=== PATIENT | female | born 1955 | race Caucasian/White ===

== ENCOUNTER → 2017-11-03 | Outpatient (CLI) | payer MEDICARE, OTHER ==
[2017-11-03 12:11] LABS: Anion Gap 8 mmol/L; Blood Urea Nitrogen 35 mg/dL (7-17); Calcium 9.5 mg/dL (8.4-10.2); Carbon Dioxide 31 mmol/L (22-30); Chloride 100 mmol/L (98-107); Glucose 89 mg/dL (74-99); Potassium 4.7 mmol/L (3.5-5.1); Sodium 139 mmol/L (137-145)
== END | disposition home or self-care (01) ==
LOC: LABWHC1 11:22
PROVIDERS: ATTEND Internal Medicine
DX: I50.32 Chronic diastolic (congestive) heart failure (principal)
CPT/HCPCS: 36415; 80048; 83880

== ENCOUNTER 2017-12-13 14:02 | Observation (INO) | payer MEDICARE, OTHER ==
[2017-12-13 15:13] LABS: Basophils % (A) 0 %; Eosinophils # (A) 0.1 k/uL (0-0.7); Eosinophils % (A) 1 %; HCT 36.2 % (34.0-46.0); HGB 11.3 gm/dL (11.4-16.0); Hypochromasia Slight; Lymphocytes # (A) 0.7 k/uL (1.0-4.8); Lymphocytes % (A) 11 %; MCH 27.2 pg (25.0-35.0); MCHC 31.3 g/dL (31.0-37.0); MCV 86.9 fL (80.0-100.0); Mean Platelet Volume 9.3; Monocytes # (A) 0.5 k/uL (0-1.0); Monocytes % (A) 7 %; Neutrophils # (A) 4.9 k/uL (1.3-7.7); Neutrophils % (A) 78 %; RBC 4.16 m/uL (3.80-5.40); RDW 15.1 % (11.5-15.5); WBC 6.3 k/uL (3.8-10.6)
[2017-12-13 15:19] LABS: ALT 28 U/L (9-52); AST 28 U/L (14-36); Albumin 4.1 g/dL (3.5-5.0); Alkaline Phosphatase 84 U/L (38-126); Anion Gap 10 mmol/L; Blood Urea Nitrogen 26 mg/dL (7-17); Calcium 9.3 mg/dL (8.4-10.2); Carbon Dioxide 36 mmol/L (22-30); Chloride 100 mmol/L (98-107); Glucose 97 mg/dL (74-99); INR 3.2 (<1.2); Partial Thromboplastin Time 29.9 sec (22.0-30.0); Prothrombin Time 28.3 sec (9.0-12.0); Sodium 146 mmol/L (137-145); Total Bilirubin 1.1 mg/dL (0.2-1.3); Total Protein 6.8 g/dL (6.3-8.2)
[2017-12-13 15:23] LABS: Platelet Count 98 k/uL (150-450)
[2017-12-13 15:27] LABS: Creatine Kinase 63 U/L (30-135)
[2017-12-13 15:40] LABS: Creatine Kinase MB 0.8 ng/mL (0.0-2.4); Troponin I <0.012 ng/mL (0.000-0.034)
--- NOTE | 2017-12-13 15:56 | ED ---
General Adult HPI - General Chief complaint: Shortness of Breath Stated complaint: Congestive Heart Failure Time Seen by Provider: 12/13/17 15:27 Source: patient, RN notes reviewed, old records reviewed Mode of arrival: wheelchair Limitations: no limitations - History of Present Illness Initial comments: 62-year-old female presenting for evaluation of worsening dyspnea. Patient states that over the past 2 days her breathing has significantly worsened. She does report bilateral lower extremity swelling, worse on the left. She also reports orthopnea. Denies any pain complaints. No chest pain, no abdominal pain. Patient has history of atrial fibrillation, Marfan's disease with previous ascending thoracic aneurysm repair and mechanical valve placement. She is currently on Coumadin. Patient denies cough, denies fever or chills. Denies URI symptoms. - Related Data Home Medications Medication Instructions Recorded Confirmed Metoprolol Succinate [Toprol XL] 100 mg PO DAILY 12/01/15 12/13/17 Levothyroxine Sodium [Synthroid] 150 mcg PO DAILY 12/02/15 12/13/17 Losartan Potassium 100 mg PO DAILY 12/02/15 12/13/17 Potassium Chloride [Klor-Con 20] 10 meq PO HS 12/02/15 12/13/17 Warfarin [Coumadin] 5 mg PO HS 12/02/15 12/13/17 Meloxicam [Mobic] 7.5 mg PO HS 10/27/17 12/13/17 Rosuvastatin [Crestor] 20 mg PO DAILY 10/27/17 12/13/17 Furosemide [Lasix] 40 mg PO BID 12/13/17 12/13/17 Allergies Allergy/AdvReac Type Severity Reaction Status Date / Time No Known Allergies Allergy Verified 12/13/17 15:58 Review of Systems ROS Statement: Those systems with pertinent positive or pertinent negative responses have been documented in the HPI. ROS Other: All systems not noted in ROS Statement are negative. Past Medical History Past Medical History: Atrial Fibrillation, Heart Failure, Eye Disorder, GI Bleed , Thyroid Disorder Additional Past Medical History / Comment(s): Congestion heart failure, history of Marfan syndrome with previous aortic valve replacement and repair of a ascending aortic aneurysm, hypothyroidism, history of right eye blindness along with a right retinal eye vein occlusion, history of small bowel GI bleeding back in 2008, scoliosis of the spine, degenerative arthritis, History of Any Multi-Drug Resistant Organisms: None Reported Past Surgical History: Cardiac Valve Replacement, Heart Catheterization, Hysterectomy, Orthopedic Surgery Additional Past Surgical History / Comment(s): Aortic valve replacement with placement of a mechanical valve, and upper aortic aneurysm repair 40 yrs ago at [facility], descending aortic repair [facility], bilateral cataract removal with lens, R knee ACL repair. Past Anesthesia/Blood Transfusion Reactions: No Reported Reaction Additional Past Anesthesia/Blood Transfusion Reaction / Comment(s): Pt believes she has received blood in the past without reaction. Past Psychological History: No Psychological Hx Reported Smoking Status: Never smoker Past Alcohol Use History: None Reported Past Drug Use History: None Reported - Past Family History Father Family Medical History: Unable to Obtain Additional Family Medical History / Comment(s): Father is . Pt unable to give history-becomes very tearful speaking of parents. Mother Family Medical History: Unable to Obtain Additional Family Medical History / Comment(s): Mother is . General Exam Limitations: no limitations General appearance: alert, in no apparent distress Head exam: Present: atraumatic, normocephalic Eye exam: Present: normal appearance, PERRL ENT exam: Present: normal exam Neck exam: Present: normal inspection. Absent: tenderness, meningismus Respiratory exam: Present: rales (Right lung base). Absent: respiratory distress Cardiovascular Exam: Present: regular rate, irregular rhythm, systolic murmur GI/Abdominal exam: Present: soft. Absent: distended, tenderness Extremities exam: Present: pedal edema (1+ pitting edema bilaterally) Back exam: Present: normal inspection, full ROM Neurological exam: Present: alert Psychiatric exam: Present: normal affect, normal mood Skin exam: Present: warm, dry, intact. Absent: cyanosis, diaphoretic Course Vital Signs 12/13/17 14:24 Temperature 99.0 F Pulse Rate 76 Respiratory 22 Rate Blood Pressure 111/55 O2 Sat by Pulse 97 Oximetry EKG Findings - EKG Comments: EKG Findings:: EKG shows atrial fibrillation, rate of 69, QRS duration 98, QTC 405, no signs of acute ischemia, artifact in V3 Medical Decision Making - Medical Decision Making 62-year-old female presenting with symptoms consistent with congestive heart failure. X-rays obtained changes with elevation of the right hemidiaphragm, no significant pulmonary edema. Laboratory studies reveal normal white blood cell count, stable hemoglobin, INR is 3.2 which is therapeutic. Troponin negative, BNP elevated 2730, this is consistent with patient's symptoms. She is given Lasix in the emergency department. She will be admitted for further treatment and evaluation of congestive heart failure - Lab Data Result diagrams: 12/13/17 14:49 12/13/17 14:49 Lab Results 12/13/17 12/13/17 12/13/17 Range/Units 14:49 14:49 14:49 WBC 6.3 (3.8-10.6) k/uL RBC 4.16 (3.80-5.40) m/uL Hgb 11.3 L (11.4-16.0) gm/dL Hct 36.2 (34.0-46.0) % MCV 86.9 (80.0-100.0) fL MCH 27.2 (25.0-35.0) pg MCHC 31.3 (31.0-37.0) g/dL RDW 15.1 (11.5-15.5) % Plt Count 98 L (150-450) k/uL Neutrophils % 78 % Lymphocytes % 11 % Monocytes % 7 % Eosinophils % 1 % Basophils % 0 % Neutrophils # 4.9 (1.3-7.7) k/uL Lymphocytes # 0.7 L (1.0-4.8) k/uL Monocytes # 0.5 (0-1.0) k/uL Eosinophils # 0.1 (0-0.7) k/uL Basophils # 0.0 (0-0.2) k/uL Hypochromasia Slight PT (9.0-12.0) sec INR (<1.2) APTT (22.0-30.0) sec Sodium 146 H (137-145) mmol/L Potassium 4.0 (3.5-5.1) mmol/L Chloride 100 (98-107) mmol/L Carbon Dioxide 36 H (22-30) mmol/L Anion Gap 10 mmol/L BUN 26 H (7-17) mg/dL Creatinine 0.80 (0.52-1.04) mg/dL Est GFR (CKD-EPI)AfAm >90 (>60 ml/min/1.73 sqM) Est GFR (CKD-EPI)NonAf 80 (>60 ml/min/1.73 sqM) Glucose 97 (74-99) mg/dL Calcium 9.3 (8.4-10.2) mg/dL Total Bilirubin 1.1 (0.2-1.3) mg/dL AST 28 (14-36) U/L ALT 28 (9-52) U/L Alkaline Phosphatase 84 (38-126) U/L Total Creatine Kinase 63 (30-135) U/L CK-MB (CK-2) 0.8 (0.0-2.4) ng/mL CK-MB (CK-2) Rel Index 1.3 Troponin I <0.012 (0.000-0.034) ng/mL NT-Pro-B Natriuret Pep pg/mL Total Protein 6.8 (6.3-8.2) g/dL Albumin 4.1 (3.5-5.0) g/dL 12/13/17 12/13/17 Range/Units 14:49 14:49 WBC (3.8-10.6) k/uL RBC (3.80-5.40) m/uL Hgb (11.4-16.0) gm/dL Hct (34.0-46.0) % MCV (80.0-100.0) fL MCH (25.0-35.0) pg MCHC (31.0-37.0) g/dL RDW (11.5-15.5) % Plt Count (150-450) k/uL Neutrophils % % Lymphocytes % % Monocytes % % Eosinophils % % Basophils % % Neutrophils # (1.3-7.7) k/uL Lymphocytes # (1.0-4.8) k/uL Monocytes # (0-1.0) k/uL Eosinophils # (0-0.7) k/uL Basophils # (0-0.2) k/uL Hypochromasia PT 28.3 H (9.0-12.0) sec INR 3.2 H (<1.2) APTT 29.9 (22.0-30.0) sec Sodium (137-145) mmol/L Potassium (3.5-5.1) mmol/L Chloride (98-107) mmol/L Carbon Dioxide (22-30) mmol/L Anion Gap mmol/L BUN (7-17) mg/dL Creatinine (0.52-1.04) mg/dL Est GFR (CKD-EPI)AfAm (>60 ml/min/1.73 sqM) Est GFR (CKD-EPI)NonAf (>60 ml/min/1.73 sqM) Glucose (74-99) mg/dL Calcium (8.4-10.2) mg/dL Total Bilirubin (0.2-1.3) mg/dL AST (14-36) U/L ALT (9-52) U/L Alkaline Phosphatase (38-126) U/L Total Creatine Kinase (30-135) U/L CK-MB (CK-2) (0.0-2.4) ng/mL CK-MB (CK-2) Rel Index Troponin I (0.000-0.034) ng/mL NT-Pro-B Natriuret Pep 2730 pg/mL Total Protein (6.3-8.2) g/dL Albumin (3.5-5.0) g/dL Disposition Clinical Impression: CHF (congestive heart failure) Disposition: ADMITTED IP TO THIS [facility] Condition: Stable Referrals: Olman Shelton MD [Primary Care Provider] - 1-2 days Decision to Admit Reason: Admit from EC Decision Date: 12/13/17 Decision Time: 16:34
--- NOTE | 2017-12-13 16:10 | XR ---
EXAMINATION TYPE: XR chest 2V DATE OF EXAM: 12/13/2017 COMPARISON: 10/27/2017. HISTORY: Shortness of breath TECHNIQUE: Frontal and lateral views of the chest are obtained. FINDINGS: Scattered senescent parenchymal changes noted. Hyperinflation compatible with COPD. Chronic elevation right hemidiaphragm. Chronic strandy density right lower lobe. No evidence for infiltrate. No evidence for atelectasis. Heart size is stable. Mediastinal structures are stable and grossly unremarkable. No evidence for hilar prominence. Degenerative changes dorsal spine. IMPRESSION: 1. No evidence for acute pulmonary disease.
[2017-12-13] MEDS ORDERED: FUROSEMIDE 10 MG/ML 4 ML VIAL IV STA (16:18)
[2017-12-13] MEDS ORDERED: NALOXONE 0.4 MG/ML 1 ML VIAL IV PRN (16:30)
[2017-12-13] MEDS ORDERED: DOCUSATE 100 MG CAP PO PRN (18:26)
--- NOTE | 2017-12-13 18:34 | P.HPIM ---
History of Present Illness H&P Date: 12/13/17 Chief Complaint: Progressive shortness of breath at rest of couple days duration 62-year-old female with past medical history of Marfan syndrome, congestive heart failure with left ventricular ejection fraction of 3540 percent, atrial fibrillation and mechanical heart valve on anticoagulation. Patient presented due to progressive worsening of shortness of breath over the past couple days, she reported that she noticed that he is short of breath even at rest over the past 2 days along with symptoms of orthopnea, and paroxysmal nocturnal dyspnea. She also notes that her legs are more swollen than normal. Otherwise denies any fevers or chills, denies any coughing or chest pain, denies any fevers or chills, denies any upper respiratory infection like symptoms, denies any nausea or vomiting, denies any abdominal pain changes in her bowel habits or urinary habits. She reported that she is compliant with her medications no changes has been done recently and that she's been taking Lasix every day. She also claims that she monitors her fluid intake and she that she doesn't drink more than 2 L every day. She says that her dry weight is 269 pounds and that she has gained up to 282 pounds over the past few days. She came into the hospital today seeking help with her shortness of breath. Patient was seen in the emergency department after she has received IV Lasix, she reported that she has urinated a lot since then and that her breathing has oriented improved however during my interview I noticed that she's been still having some shortness of breath while trying to talk full sentences. I discussed with the patient CODE STATUS, she elected to be a full code, and name to her sister Surya Allison as surrogate decision-maker otherwise currently she feels much better than when she presented. Review of Systems Constitutional: Patient denies fever, denies chills, denies night sweating, denies significant weight changes Eyes: Patient denies visual changes, denies eye pain ENT: Patient denies ear pain, denies rhinorrhea, denies sore throat Cardiovascular: Patient denies chest pain, reports dyspnea, orthopnea, PND is as reported in HPI Respiratory:Patient denies cough, denies wheezing, reports shortness of breath Gastrointestinal: Patient denies diarrhea, denies constipation, denies nausea , denies vomiting, denies abdominal pain Genitourinary: Patient denies dysuria, denies hematuria, denies changes in urinary habits, denies genital lesions Musculoskeletal: Patient denies muscle pain, denies joint pain Psychiatric: Patient denies changes in mood or memory, denies suicidal ideation, denies anxiety Endocrine: Patient denies heat intolerance, denies cold intolerance, denies excessive thirst, denies polyuria Neurological: Patient denies focal neurologic deficits, denies weakness, denies numbness, denies tingling Hem/Lymphatic: Patient denies bleeding tendency, denies bruising, denies swollen lymph glands Allergic/Immun: Patient denies recent allergic reactions Skin: Patient denies rashes, denies pruritis, denies ulcers Past Medical History Past Medical History: Atrial Fibrillation, Heart Failure, Eye Disorder, GI Bleed , Thyroid Disorder Additional Past Medical History / Comment(s): Congestion heart failure, history of Marfan syndrome with previous aortic valve replacement and repair of a ascending aortic aneurysm, hypothyroidism, history of right eye blindness along with a right retinal eye vein occlusion, history of small bowel GI bleeding back in 2008, scoliosis of the spine, degenerative arthritis, History of Any Multi-Drug Resistant Organisms: None Reported Past Surgical History: Cardiac Valve Replacement, Heart Catheterization, Hysterectomy, Orthopedic Surgery Additional Past Surgical History / Comment(s): Aortic valve replacement with placement of a mechanical valve, and upper aortic aneurysm repair 40 yrs ago at [facility], descending aortic repair [facility], bilateral cataract removal with lens, R knee ACL repair. Past Anesthesia/Blood Transfusion Reactions: No Reported Reaction Additional Past Anesthesia/Blood Transfusion Reaction / Comment(s): Pt believes she has received blood in the past without reaction. Past Psychological History: No Psychological Hx Reported Smoking Status: Never smoker Past Alcohol Use History: None Reported Past Drug Use History: None Reported - Past Family History Father Family Medical History: Unable to Obtain Additional Family Medical History / Comment(s): Father is . Pt unable to give history-becomes very tearful speaking of parents. Mother Family Medical History: Unable to Obtain Additional Family Medical History / Comment(s): Mother is . Medications and Allergies Home Medications Medication Instructions Recorded Confirmed Type Metoprolol Succinate [Toprol XL] 100 mg PO DAILY 12/01/15 12/13/17 History Levothyroxine Sodium [Synthroid] 150 mcg PO DAILY 12/02/15 12/13/17 History Losartan Potassium 100 mg PO DAILY 12/02/15 12/13/17 History Potassium Chloride [Klor-Con 20] 10 meq PO HS 12/02/15 12/13/17 History Warfarin [Coumadin] 5 mg PO HS 12/02/15 12/13/17 History Meloxicam [Mobic] 7.5 mg PO HS 10/27/17 12/13/17 History Rosuvastatin [Crestor] 20 mg PO DAILY 10/27/17 12/13/17 History Furosemide [Lasix] 40 mg PO BID 12/13/17 12/13/17 History Allergies Allergy/AdvReac Type Severity Reaction Status Date / Time No Known Allergies Allergy Verified 12/13/17 15:58 Physical Exam Vitals: Vital Signs Temp Pulse Resp BP Pulse Ox 12/13/17 16:32 98.5 F 69 18 129/80 94 L 12/13/17 14:24 99.0 F 76 22 111/55 97 Intake and Output 12/13/17 12/13/17 12/13/17 06:59 14:59 22:59 Other: Weight 127.459 kg Patient Weight 12/14/17 06:59 Weight 127.459 kg Constitutional: Very mild respiratory distress when trying to talk full sentences, otherwise pleasant Eyes: Anicteric sclerae, moist conjunctiva, no lid-lag Pupils equal round reactive to light ENMT: NC/AT Oropharynx clear, no erythema, or exudates Neck: Supple, FROM, no masses, or JVD No carotid bruits No thyromegaly Lungs: Good breath sounds bilaterally, mild expiratory rales at lung bases bilaterally. Mild increase and respiratory effort, with the use off accessory muscle when trying to talk full sentences at rest Cardiovascular: Heart regular in rate and rhythm, mechanical clicks , systolic murmurs, no gallops, or rubs +1 peripheral edema Abdominal: Soft Nontender, no guarding, rebound or rigidity Abdomen moving with respiration Normoactive bowel sounds No hepatomegaly, No splenomegaly No palpable mass No abdominal wall hernia noted Skin: Normal temperature, tone, texture, turgor No induration No subcutaneous nodules No rash, lesions No ulcers Extremities: No digital cyanosis No clubbing Pedal pulses intact and symmetrical Radial pulses intact and symmetrical No calf tenderness Psychiatric: Alert and oriented to person, place and time Appropriate affect fair judgment Neuro Muscles Strength 5/5 in all 4 extremities Sensation to light touch grossly present throughout Cranial nerves II-XII grossly intact No focal sensory deficits Lymphatics: no palpable cervical or supraclavicular , or inguinal lymph nodes Results CBC & Chem 7: 12/13/17 14:49 12/13/17 14:49 Labs: Abnormal Lab Results - Last 24 Hours (Table) 12/13/17 12/13/17 12/13/17 Range/Units 14:49 14:49 14:49 Hgb 11.3 L (11.4-16.0) gm/dL Plt Count 98 L (150-450) k/uL Lymphocytes # 0.7 L (1.0-4.8) k/uL PT 28.3 H (9.0-12.0) sec INR 3.2 H (<1.2) Sodium 146 H (137-145) mmol/L Carbon Dioxide 36 H (22-30) mmol/L BUN 26 H (7-17) mg/dL Assessment and Plan Assessment: 62-year-old female with history of Marfan syndrome, systolic congestive heart failure with ejection fraction of 35-40%, atrial fibrillation, mechanical aortic valve. Patient presented with progressive shortness of breath over the past few days, with weight gain of around 13 pounds. She was found to be in acute exacerbation of systolic CHF and admitted for further care. Plan: #Acute respiratory distress due to fluid overload #Acute systolic CHF exacerbation with fluid overload, left ventricular ejection fraction of 35-40 percent Supplemental oxygen through nasal cannula keep oxygen saturation above 92% Elevate head of the bed IV Lasix fluid restriction Continue with FANNY inhibitor, metoprolol Morphine when necessary for difficulty in breathing Daily weights Monitor vital signs closely Strict I's and O's #Chronic atrial fibrillation, rate controlled, on anticoagulation with Coumadin. Continue with current medications #Mechanical aortic valve on Coumadin with goal INR 2.5-3.5 currently at goal Continue with Coumadin dosing by pharmacy #Anemia and thrombocytopenia This could be secondary to mechanical valve Patient denies any bowel movements or melena Check occult blood in stool Monitor hemoglobin #History of Marfan syndrome #Hypothyroidism Continue Synthroid #Hyperlipidemia Continue statin #DVT prophylaxis Patient on Coumadin currently therapeutic Consultation was placed to Dr. Archer who is patient PCP Preformed a thorough record review from recent hospitalization from 1-2 months ago, when patient presented due to respiratory distress was found to have acute COPD exacerbation and mild CHF exacerbation patient was treated in the hospital for a few days and then discharge stable with increased doses of Lasix at home. Surrogate decision-maker: Patient's sister Elena CODE STATUS: Full code DVT prophylaxis: On Coumadin for mechanical heart valve and A. fib Discussed with: Patient, ER, RN Anticipated discharge: 48-[address]: Home
[2017-12-13] MEDS ORDERED: WARFARIN 5 MG TAB PO ONE (19:00)
[2017-12-13] MEDS: ATORVASTATIN 40 MG TAB PO SCH (21:59)
[2017-12-13] MEDS: ACETAMINOPHEN TAB 325 MG TAB PO PRN (23:50)
[2017-12-13] MEDS: POTASSIUM CHLORIDE ER 20 MEQ TAB.ER PO SCH (23:51)
[2017-12-14] MEDS ORDERED: traMADol 50 MG TAB PO ONE (04:31)
[2017-12-14] MEDS ORDERED: FUROSEMIDE 10 MG/ML 4 ML VIAL IV SCH (06:00)
[2017-12-14] MEDS: LEVOTHYROXINE 75 MCG TAB PO SCH (06:08)
[2017-12-14] MEDS: METOPROLOL SUCCINATE (ER) 100 MG TAB.ER.24H PO SCH (08:06)
[2017-12-14] MEDS: LOSARTAN 50 MG TAB PO SCH (08:06)
[2017-12-14 09:41] LABS: Basophils % (A) 1 %; Eosinophils # (A) 0.2 k/uL (0-0.7); Eosinophils % (A) 3 %; HCT 38.3 % (34.0-46.0); Hypochromasia Slight; Lymphocytes # (A) 0.8 k/uL (1.0-4.8); Lymphocytes % (A) 13 %; MCH 27.4 pg (25.0-35.0); MCHC 31.2 g/dL (31.0-37.0); MCV 87.8 fL (80.0-100.0); Mean Platelet Volume 8.7; Monocytes # (A) 0.4 k/uL (0-1.0); Monocytes % (A) 7 %; Neutrophils # (A) 4.6 k/uL (1.3-7.7); Neutrophils % (A) 74 %; Platelet Count 115 k/uL (150-450); RBC 4.36 m/uL (3.80-5.40); RDW 14.8 % (11.5-15.5); WBC 6.2 k/uL (3.8-10.6)
[2017-12-14 09:44] LABS: INR 2.4 (<1.2); Prothrombin Time 21.3 sec (9.0-12.0)
[2017-12-14 10:07] LABS: Albumin 4.1 g/dL (3.5-5.0); Calcium 9.3 mg/dL (8.4-10.2); Magnesium 2.1 mg/dL (1.6-2.3); Potassium 3.9 mmol/L (3.5-5.1); Total Bilirubin 1.3 mg/dL (0.2-1.3); Total Protein 6.9 g/dL (6.3-8.2)
[2017-12-14] MEDS ORDERED: KETOROLAC 30 MG/ML 1 ML VIAL IVP PRN (10:18)
--- NOTE | 2017-12-14 10:26 | P.PN ---
Subjective Progress Note Date: 12/14/17 Principal diagnosis: Patient seen and examined in follow-up of acute CHF exacerbation Patient seen and examined today, she reports feeling better. She was actually laying flat where she couldn't do that at home due to orthopnea. Her breathing is much improved no shortness of breath at rest she is able to talk full sentences denies any chest pain nausea or vomiting. Denies any fevers or chills. She is complaining of right thigh pain she reports that she has probably pulled a muscle in her right thigh when she was trying to get in the car and twisted her leg, she is worried that last time she did that she had a big bruise over her right thigh however this time there is no swelling or bruising . Objective - Vital Signs Vital signs: Vital Signs Temp 98.0 F 12/14/17 06:09 Pulse 64 12/14/17 06:09 Resp 18 12/14/17 06:09 BP 111/67 12/14/17 06:09 Pulse Ox 94 L 12/14/17 06:09 Intake & Output 12/13/17 12/14/17 12/14/17 18:59 06:59 18:59 Weight 125 kg 127.3 kg Other: Voiding Method Bedside Commode Bedside Commode # Voids 2 - Exam Constitutional: vital signs stable, Not in acute distress, pleasant, conversant Lungs: Clear to auscultation bilaterally, clear to percussion, normal respiratory effort no use of accessory muscles Cardiovascular: Regular rate and rhythm, no murmurs, no gallops, no rubs, no peripheral edema Gastrointestinal: Soft, no tenderness to palpationbowel sounds positive Extremities: No digital cyanosis or clubbing, peripheral pulses palpable and equal over bilateral radial arteries and dorsalis pedis artery, no calf muscle tenderness, tenderness to superficial palpation of the lateral aspect of the proximal right thigh, no skin changes no swelling no ecchymosis. Patient is able to flex her right hip but reports that any movement results in pain in the muscle. Psych: Alert, oriented to place, person and time, appropriate affect, intact judgment - Labs CBC & Chem 7: 12/14/17 09:18 12/14/17 09:18 Labs: Abnormal Lab Results - Last 24 Hours (Table) 12/13/17 12/13/17 12/13/17 Range/Units 14:49 14:49 14:49 Hgb 11.3 L (11.4-16.0) gm/dL Plt Count 98 L (150-450) k/uL Lymphocytes # 0.7 L (1.0-4.8) k/uL PT 28.3 H (9.0-12.0) sec INR 3.2 H (<1.2) Sodium 146 H (137-145) mmol/L Chloride (98-107) mmol/L Carbon Dioxide 36 H (22-30) mmol/L BUN 26 H (7-17) mg/dL Glucose (74-99) mg/dL 12/14/17 12/14/17 12/14/17 Range/Units 09:18 09:18 09:18 Hgb (11.4-16.0) gm/dL Plt Count 115 L (150-450) k/uL Lymphocytes # 0.8 L (1.0-4.8) k/uL PT 21.3 H (9.0-12.0) sec INR 2.4 H (<1.2) Sodium (137-145) mmol/L Chloride 97 L (98-107) mmol/L Carbon Dioxide 37 H (22-30) mmol/L BUN 25 H (7-17) mg/dL Glucose 143 H (74-99) mg/dL Assessment and Plan Assessment: 62-year-old female with history of Marfan syndrome, systolic congestive heart failure with ejection fraction of 35-40%, atrial fibrillation, mechanical aortic valve. Patient presented with progressive shortness of breath over the past few days, with weight gain of around 13 pounds. She was found to be in acute exacerbation of systolic CHF and admitted under observation for further care. Today she feels better denies any orthopnea or shortness of breath at rest, there was no charted urine output however she indicated that she has urinated a lot overnight and yesterday due to IV diuresis. She is complaining of right thigh pain that she thinks he pulled a muscle yesterday when she was trying to get into the car, there is no bruising or swelling in the area. Physical therapy consult at to assist the patient and help with therapeutic exercising. Pain control with NSAIDs. Patient might possibly be discharged today Plan: #Acute respiratory distress due to fluid overload, resolved #Acute systolic CHF exacerbation with fluid overload, left ventricular ejection fraction of 35-40 percent, improving Supplemental oxygen through nasal cannula keep oxygen saturation above 92% Elevate head of the bed IV Lasix will be switched to by mouth fluid restriction Continue with FANNY inhibitor, metoprolol Daily weights Monitor vital signs closely Strict I's and O's #Chronic atrial fibrillation, rate controlled, on anticoagulation with Coumadin. Continue with current medications #Mechanical aortic valve on Coumadin with goal INR 2.5-3.5 currently at goal Continue with Coumadin dosing by pharmacy #Anemia and thrombocytopenia This could be secondary to mechanical valve Patient denies any bloody bowel movements or melena Check occult blood in stool Monitor hemoglobin #History of Marfan syndrome #Hypothyroidism Continue Synthroid #Hyperlipidemia Continue statin #DVT prophylaxis Patient on Coumadin currently therapeutic Consultation was placed to Dr. Archer who is patient PCP right thigh pain patient suspects pulling a muscle yesterday when she was trying to get into the car, pain control with Toradol, physical therapy consult We'll assist the patient later today and follow-up on blood work Possible discharge later today or tomorrow after physical therapy evaluation if patient continues to be stable
[2017-12-14 10:36] VITALS: BMI 39.1
--- NOTE | 2017-12-14 10:57 | XR ---
EXAMINATION TYPE: XR Hip Limited RT DATE OF EXAM: 12/14/2017 COMPARISON: NONE HISTORY: Pain TECHNIQUE: One view submitted FINDINGS: There is no evidence of erosive change or acute fracture. Technique limits the exam but there is concentric narrowing of the joint space and hypertrophic leon e of the acetabulum. IMPRESSION: 1. No evidence of acute fracture or dislocation. 2. Advanced arthropathy of the hip correlate for femoral acetabular impingement.
[2017-12-14] MEDS ORDERED: KETOROLAC 30 MG/ML 1 ML VIAL IVP SCH (12:00)
--- NOTE | 2017-12-14 16:03 | P.CNPUL ---
History of Present Illness Consult date: 12/14/17 Requesting physician: William Cruz Reason for consult: dyspnea, abnormal CXR/CT Chief complaint: Increasing dyspnea, weight gain, swelling in bilateral lower extremities History of present illness: Jeanne is a 62-year-old white female patient that follows with Dr. Shelton for primary care services, presented to the emergency department on 12/13/2017 at 1402 with complaints of worsening exertional dyspnea, swelling in bilateral lower extremities, weight gain of 7-10 pounds over the course of 5 days, orthopnea. 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 Patient is a lifetime nonsmoker, does not have any chronic lung disease. She is not on any oxygen, not on any inhalers. Takes 40 mg of Lasix twice a day on a regular basis. Echocardiogram from 10/28/2017 shows EF of 35-40%, with basal inferior LV wall hypokinesis and borderline pulmonary artery hypertension with right ventricular systolic pressure of 36.49 mmHg. Twelve-lead EKG was completed and showed atrial fibrillation with a controlled rate at 69 BPM, and evidence of an old septal infarct. Chest x-ray showed no evidence of acute pulmonary process. ProBNP was elevated 2730, cardiac enzymes and troponins were negative 1. Lab work was negative for any evidence of leukocytosis, patient denies any fever or chills. Patient injured her right hip while getting into a car to go to the emergency room. She thinks she may have torn a muscle, he started experiencing extreme pain with weightbearing on the right leg. She had a similar episode a year ago, when she sustained a similar injury with a muscle tear and a large hematoma in the right hip, but has since recovered. Patient was given IV diuretics, with improvement of her dyspnea, and peripheral edema. On today's exam, as no evidence of wheezing or rales. She is on room air, with O2 sat at 94%. Has been get not to the bedside commode, still unable to bear weight on her right leg. Trace pretibial pedal edema remains. X-ray of the right hip was completed and showed no evidence of acute fracture or dislocation. Advanced arthropathic of the hip was noted, correlate for femoral acetabular impingement. Review of Systems All systems: negative Constitutional: Denies chills, Denies fever Eyes: denies blurred vision, denies pain Ears, nose, mouth and throat: Denies headache, Denies sore throat Cardiovascular: Reports decreased exercise tolerance, Reports dyspnea on exertion, Reports edema, Reports leg edema, Denies chest pain, Denies shortness of breath Respiratory: Denies cough Gastrointestinal: Denies abdominal pain, Denies diarrhea, Denies nausea, Denies vomiting Genitourinary: Denies dysuria, Denies hematuria Musculoskeletal: Denies myalgias Integumentary: Denies pruritus, Denies rash Neurological: Denies numbness, Denies weakness Psychiatric: Denies anxiety, Denies depression Endocrine: Denies fatigue, Denies weight change Past Medical History Past Medical History: Atrial Fibrillation, Heart Failure, Eye Disorder, Osteoarthritis (OA), Thyroid Disorder Additional Past Medical History / Comment(s): History of Marfan syndrome with previous aortic valve replacement and repair of an ascending and descending aortic aneurysm, hypothyroidism, history of right eye blindness along with a right retinal eye vein occlusion, scoliosis of the spine. History of Any Multi-Drug Resistant Organisms: None Reported Past Surgical History: Cardiac Valve Replacement, Heart Catheterization, Hysterectomy, Orthopedic Surgery Additional Past Surgical History / Comment(s): Aortic valve replacement with placement of a mechanical valve, and upper aortic aneurysm repair 40 yrs ago at [facility], descending aortic repair [facility], bilateral cataract removal with lens, R knee ACL repair. Past Anesthesia/Blood Transfusion Reactions: No Reported Reaction Additional Past Anesthesia/Blood Transfusion Reaction / Comment(s): Pt. believes she has received blood in the past without reaction. Past Psychological History: No Psychological Hx Reported Additional Psychological History / Comment(s): Pt lives at home and her son lives with her. She uses a cane to ambulate. She drives. She is independent. Smoking Status: Never smoker Past Alcohol Use History: None Reported Past Drug Use History: None Reported - Past Family History Father Family Medical History: Unable to Obtain Additional Family Medical History / Comment(s): Father is . Pt unable to give history-becomes very tearful speaking of parents. Mother Family Medical History: Unable to Obtain Additional Family Medical History / Comment(s): Mother is . Medications and Allergies Home Medications Medication Instructions Recorded Confirmed Type Metoprolol Succinate [Toprol XL] 100 mg PO DAILY 12/01/15 12/13/17 History Levothyroxine Sodium [Synthroid] 150 mcg PO DAILY 12/02/15 12/13/17 History Losartan Potassium 100 mg PO DAILY 12/02/15 12/13/17 History Potassium Chloride [Klor-Con 20] 10 meq PO HS 12/02/15 12/13/17 History Warfarin [Coumadin] 5 mg PO HS 12/02/15 12/13/17 History Meloxicam [Mobic] 7.5 mg PO HS 10/27/17 12/13/17 History Rosuvastatin [Crestor] 20 mg PO DAILY 10/27/17 12/13/17 History Furosemide [Lasix] 40 mg PO BID 12/13/17 12/13/17 History Allergies Allergy/AdvReac Type Severity Reaction Status Date / Time No Known Allergies Allergy Verified 12/14/17 03:37 Physical Exam Vitals: Vital Signs Temp Pulse Pulse Resp BP BP Pulse Ox 12/14/17 06:09 98.0 F 64 18 111/67 94 L 12/13/17 22:50 97.2 F L 72 18 112/57 96 12/13/17 20:25 96.6 F L 80 18 139/72 95 12/13/17 19:48 76 18 108/59 100 12/13/17 19:17 98.4 F 77 18 122/71 98 12/13/17 16:32 98.5 F 69 18 129/80 94 L 12/13/17 14:24 99.0 F 76 22 111/55 97 Intake and Output 12/13/17 12/14/17 12/14/17 22:59 06:59 14:59 Other: Voiding Method Bedside Commode Bedside Commode # Voids 1 2 Weight 125 kg 127.3 kg 127.3 kg Patient Weight 12/15/17 06:59 Weight 127.3 kg GENERAL EXAM: Alert, pleasant, 62-year-old white female, comfortable in no apparent distress. HEAD: Normocephalic/atraumatic. EYES: Normal reaction of pupils, equal size. Conjunctiva pink, sclera white. NOSE: Clear with pink turbinates. THROAT: No erythema or exudates. NECK: No masses, no JVD, no thyroid enlargement, no adenopathy. CHEST: No chest wall deformity. Symmetrical expansion. LUNGS: Equal air entry with no crackles, wheeze, rhonchi or dullness. CVS: Regular rate and rhythm, normal S1 and S2, no gallops, no murmurs, no rubs. There is a systolic click noted consistent with patient's history of mechanical aortic valve replacement ABDOMEN: Soft, nontender. No hepatosplenomegaly, normal bowel sounds, no guarding or rigidity. EXTREMITIES: No clubbing, no cyanosis, 2+ pulses and upper and lower extremities. Mild pretibial and pedal edema. There is tenderness over right femoral joint area, patient is unable to bear weight or flex the leg related to extreme pain MUSCULOSKELETAL: Muscle strength and tone normal. SPINE: No scoliosis or deformity SKIN: No rashes CENTRAL NERVOUS SYSTEM: Alert and oriented -3. No focal deficits, tone is normal in all 4 extremities. PSYCHIATRIC: Alert and oriented -3. Appropriate affect. Intact judgment and insight. Results - Laboratory Findings CBC and BMP: 12/14/17 09:18 12/14/17 09:18 PT/INR, D-dimer PT 21.3 sec (9.0-12.0) H 12/14/17 09:18 INR 2.4 (<1.2) H 12/14/17 09:18 Abnormal lab findings: Abnormal Labs 12/13/17 12/13/17 12/13/17 14:49 14:49 14:49 Hgb 11.3 L Plt Count 98 L Lymphocytes # 0.7 L PT 28.3 H INR 3.2 H Sodium 146 H Chloride Carbon Dioxide 36 H BUN 26 H Glucose 12/14/17 12/14/17 12/14/17 09:18 09:18 09:18 Hgb Plt Count 115 L Lymphocytes # 0.8 L PT 21.3 H INR 2.4 H Sodium Chloride 97 L Carbon Dioxide 37 H BUN 25 H Glucose 143 H - Diagnostic Findings Chest x-ray: report reviewed Additional studies: 12 lead EKG reviewed, x-ray of the right hip reviewed Assessment and Plan Plan: Assessment: #1. Acute systolic CHF exacerbation with fluid overload and acute respiratory distress, in the patient with the baseline EF of 35-40% #2. Acute hypoxic respiratory failure secondary to the above, resolved with diuresis #3. Right hip pain secondary to possible muscular injury, sustained while getting into a car. X-ray of the right hip is negative for any evidence of fractures #4. Chronic atrial fibrillation, on chronic anticoagulation with Coumadin #5. History of mechanical aortic valve replacement, on chronic anticoagulation with Coumadin #6. History of thoracic ascending aortic repair #7. History of Marfan syndrome #8. Hypothyroidism #9. Hyperlipidemia #10. Chronic anemia and chronic thrombocytopenia possibly related to a mechanical valve #11. Scoliosis or deformity of spine Plan: Patient has been diuresed with IV diuretics, she states her dyspnea is much improved. She is not on room air, peripheral edema has improved. Continue with oral Lasix, continue Coumadin, her INR today is 2.4, subtherapeutic for mechanical valve. Patient was given Toradol with the possibility of muscular injury in the right hip. X-ray of the right hip did not show any evidence of fractures. Physical therapy was consulted. From pulmonary standpoint, patient is stable for discharge home today. Follow-up with Dr. Shelton in the office in 7-10 days. I performed a history & physical examination of the patient and discussed their management with my nurse practitioner, Malka Francisco. I reviewed the nurse practitioner's note and agree with the documented findings and plan of care. Lung sounds are clear. The findings and the impression was discussed with the patient. I attest to the documentation by the nurse practitioner. Time with Patient: Greater than 30
[2017-12-14 16:42] VITALS: RESP 16
[2017-12-14] MEDS: FUROSEMIDE 40 MG TAB PO SCH (16:45)
[2017-12-14] MEDS ORDERED: WARFARIN 5 MG TAB PO ONE (18:00)
[2017-12-14] MEDS: ATORVASTATIN 40 MG TAB PO SCH (21:42)
[2017-12-14] MEDS: POTASSIUM CHLORIDE ER 20 MEQ TAB.ER PO SCH (21:42)
[2017-12-15] MEDS: ACETAMINOPHEN TAB 325 MG TAB PO PRN ×2 (00:04→06:45)
[2017-12-15] MEDS: LEVOTHYROXINE 75 MCG TAB PO SCH (05:34)
[2017-12-15] MEDS: METOPROLOL SUCCINATE (ER) 100 MG TAB.ER.24H PO SCH (07:58)
[2017-12-15] MEDS: LOSARTAN 50 MG TAB PO SCH (07:58)
[2017-12-15] MEDS: FUROSEMIDE 40 MG TAB PO SCH (07:59)
[2017-12-15 08:35] VITALS: BP 105/66; PULSE 67; TEMP 97.5
[2017-12-15 08:55] LABS: INR 2.4 (<1.2); Prothrombin Time 21.4 sec (9.0-12.0)
[2017-12-15 09:09] LABS: Basophils # (A) 0.1 k/uL (0-0.2); Basophils % (A) 1 %; Eosinophils # (A) 0.2 k/uL (0-0.7); Eosinophils % (A) 4 %; HCT 36.2 % (34.0-46.0); HGB 11.8 gm/dL (11.4-16.0); Hypochromasia Slight; Lymphocytes % (A) 18 %; MCH 28.1 pg (25.0-35.0); MCHC 32.4 g/dL (31.0-37.0); MCV 86.7 fL (80.0-100.0); Mean Platelet Volume 9.3; Monocytes # (A) 0.5 k/uL (0-1.0); Monocytes % (A) 9 %; Neutrophils # (A) 3.6 k/uL (1.3-7.7); Neutrophils % (A) 65 %; Platelet Count 119 k/uL (150-450); RBC 4.18 m/uL (3.80-5.40); RDW 14.8 % (11.5-15.5); WBC 5.5 k/uL (3.8-10.6)
[2017-12-15 09:22] LABS: Potassium 4.1 mmol/L (3.5-5.1)
--- NOTE | 2017-12-15 11:10 | P.DS ---
Providers Date of admission: 12/13/17 16:30 Attending physician: William Cruz MD Consults: 12/13/17 16:31 Consult Physician Routine Consulting Provider: Olman Shelton Consult Reason/Comments: CHF Do you want consulting provider notified?: Already Contacted Primary care physician: Olman Shelton [facility] Course: 62-year-old female with past medical history of Marfan syndrome, congestive heart failure with left ventricular ejection fraction of 35-40 %, atrial fibrillation and mechanical heart valve on anticoagulation presented due to progressive worsening of shortness of breath, the short of breath occurred even at rest along with symptoms of orthopnea, and paroxysmal nocturnal dyspnea. She also noted that her legs are more swollen than normal. Otherwise denied any fevers or chills, denied any coughing or chest pain, denied any upper respiratory infection like symptoms, denied any nausea or vomiting, no urinary symptoms. She reported that she is compliant with her medications and has been taking Lasix every day. She also was monitoring her fluid intake, usually doesn 't drink more than 2 L every day. She says that her dry weight is 269 pounds and that she has gained up to 282 pounds over the past few days. In the emergency department she received IV Lasix, after that her breathing has improved. Subsequently she was admitted to the hospital for further diuresis. Initially during the admission she was still having some shortness of breath while talking and moving. With diuresis those symptoms improved. Patient is currently feeling as her baseline, the swelling in her legs is very much improved. She was able to ambulate without symptoms of shortness of breath or weakness. Echocardiogram was not repeated because it was just done 2 months ago. Patient was continued on FANNY inhibitor and beta yordy. Upon discharge she was instructed to follow-up with Dr. Ventura. Time for discharge 35 minutes. Patient Condition at Discharge: Stable Plan - Discharge Summary Discharge Rx Participant: No New Discharge Prescriptions: New Furosemide [Lasix] 40 mg PO BID@0900,1600 tab Ketorolac [Toradol] 30 mg IVP Q6HR PRN vial PRN Reason: Mild Pain Continue Metoprolol Succinate [Toprol XL] 100 mg PO DAILY Potassium Chloride [Klor-Con 20] 10 meq PO HS Losartan Potassium 100 mg PO DAILY Levothyroxine Sodium [Synthroid] 150 mcg PO DAILY Warfarin [Coumadin] 5 mg PO HS Rosuvastatin [Crestor] 20 mg PO DAILY Meloxicam [Mobic] 7.5 mg PO HS Furosemide [Lasix] 40 mg PO BID Discharge Medication List Metoprolol Succinate [Toprol XL] 100 mg PO DAILY 12/01/15 [History] Levothyroxine Sodium [Synthroid] 150 mcg PO DAILY 12/02/15 [History] Losartan Potassium 100 mg PO DAILY 12/02/15 [History] Potassium Chloride [Klor-Con 20] 10 meq PO HS 12/02/15 [History] Warfarin [Coumadin] 5 mg PO HS 12/02/15 [History] Meloxicam [Mobic] 7.5 mg PO HS 10/27/17 [History] Rosuvastatin [Crestor] 20 mg PO DAILY 10/27/17 [History] Furosemide [Lasix] 40 mg PO BID 12/13/17 [History] Furosemide [Lasix] 40 mg PO BID@0900,1600 tab 12/15/17 [Rx] Ketorolac [Toradol] 30 mg IVP Q6HR PRN vial 12/15/17 [Rx] Follow up Appointment(s)/Referral(s): Olman Shelton MD [Primary Care Provider] - 1-2 days
--- NOTE | 2017-12-15 13:53 | P.PN ---
Subjective Progress Note Date: 12/15/17 Principal diagnosis: Acute exacerbation of chronic systolic congestive heart failure with acute hypoxic respiratory failure Jeanne is a 62-year-old white female patient that follows with Dr. Shelton for primary care services, presented to the emergency department on 12/13/2017 at 1402 with complaints of worsening exertional dyspnea, swelling in bilateral lower extremities, weight gain of 7-10 pounds over the course of 5 days, orthopnea. 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 Patient is a lifetime nonsmoker, does not have any chronic lung disease. She is not on any oxygen, not on any inhalers. Takes 40 mg of Lasix twice a day on a regular basis. Echocardiogram from 10/28/2017 shows EF of 35-40%, with basal inferior LV wall hypokinesis and borderline pulmonary artery hypertension with right ventricular systolic pressure of 36.49 mmHg. Twelve-lead EKG was completed and showed atrial fibrillation with a controlled rate at 69 BPM, and evidence of an old septal infarct. Chest x-ray showed no evidence of acute pulmonary process. ProBNP was elevated 2730, cardiac enzymes and troponins were negative 1. Lab work was negative for any evidence of leukocytosis, patient denies any fever or chills. Patient injured her right hip while getting into a car to go to the emergency room. She thinks she may have torn a muscle, he started experiencing extreme pain with weightbearing on the right leg. She had a similar episode a year ago, when she sustained a similar injury with a muscle tear and a large hematoma in the right hip, but has since recovered. Patient was given IV diuretics, with improvement of her dyspnea, and peripheral edema. On today's exam, as no evidence of wheezing or rales. She is on room air, with O2 sat at 94%. Has been get not to the bedside commode, still unable to bear weight on her right leg. Trace pretibial pedal edema remains. X-ray of the right hip was completed and showed no evidence of acute fracture or dislocation. Advanced arthropathic of the hip was noted, correlate for femoral acetabular impingement. The patient is seen again today 12/15/2017 in follow-up in the regular medical floor. She is awake and alert in no acute distress. She is breathing better today as compared to yesterday. He remains in a negative balance. He is maintaining good O2 saturations up to 100% on room air. She is afebrile. Hemodynamically stable. No leukocytosis. Hemoglobin 11.8. Creatinine 0.92. INR 2.4. Objective - Vital Signs Vital signs: Vital Signs Temp 97.5 F L 12/15/17 07:00 Pulse 67 12/15/17 07:00 Resp 16 12/15/17 07:00 BP 105/66 12/15/17 07:00 Pulse Ox 96 12/15/17 07:00 Intake & Output 12/14/17 12/15/17 12/15/17 18:59 06:59 18:59 Intake Total 400 300 Output Total 1925 Balance 400 -1625 Weight 127.3 kg 127.4 kg Intake: Oral 400 300 Output: Urine 1925 Other: Voiding Method Bedside Commode Toilet # Voids 3 2 - Exam GENERAL EXAM: Alert, pleasant, 62-year-old white female, comfortable in no apparent distress. HEAD: Normocephalic/atraumatic. EYES: Normal reaction of pupils, equal size. Conjunctiva pink, sclera white. NOSE: Clear with pink turbinates. THROAT: No erythema or exudates. NECK: No masses, no JVD, no thyroid enlargement, no adenopathy. CHEST: No chest wall deformity. Symmetrical expansion. LUNGS: Equal air entry with no crackles, wheeze, rhonchi or dullness. CVS: Regular rate and rhythm, normal S1 and S2, no gallops, no murmurs, no rubs. There is a systolic click noted consistent with patient's history of mechanical aortic valve replacement ABDOMEN: Soft, nontender. No hepatosplenomegaly, normal bowel sounds, no guarding or rigidity. EXTREMITIES: No clubbing, no cyanosis, 2+ pulses and upper and lower extremities. Mild pretibial and pedal edema. There is tenderness over right femoral joint area, patient is unable to bear weight or flex the leg related to extreme pain MUSCULOSKELETAL: Muscle strength and tone normal. SPINE: No scoliosis or deformity SKIN: No rashes CENTRAL NERVOUS SYSTEM: Alert and oriented -3. No focal deficits, tone is normal in all 4 extremities. PSYCHIATRIC: Alert and oriented -3. Appropriate affect. Intact judgment and insight. - Labs CBC & Chem 7: 12/15/17 08:07 12/15/17 08:07 Labs: Abnormal Lab Results - Last 24 Hours (Table) 12/15/17 12/15/17 12/15/17 Range/Units 08:07 08:07 08:07 Plt Count 119 L (150-450) k/uL PT 21.4 H (9.0-12.0) sec INR 2.4 H (<1.2) Carbon Dioxide 35 H (22-30) mmol/L BUN 33 H (7-17) mg/dL Assessment and Plan Assessment: Assessment: #1. Acute systolic CHF exacerbation with fluid overload and acute respiratory distress, in the patient with the baseline EF of 35-40% #2. Acute hypoxic respiratory failure secondary to the above, resolved with diuresis #3. Right hip pain secondary to possible muscular injury, sustained while getting into a car. X-ray of the right hip is negative for any evidence of fractures #4. Chronic atrial fibrillation, on chronic anticoagulation with Coumadin #5. History of mechanical aortic valve replacement, on chronic anticoagulation with Coumadin #6. History of thoracic ascending aortic repair #7. History of Marfan syndrome #8. Hypothyroidism #9. Hyperlipidemia #10. Chronic anemia and chronic thrombocytopenia possibly related to a mechanical valve #11. Scoliosis or deformity of spine Plan: The patient was seen and evaluated by Dr. Shelton. She is stable from the pulmonary standpoint. She diuresed well. She could be seen in our office in 1- 2 weeks' time. She is however encouraged to call sooner with any recurrence of symptoms or other questions or concerns. I, the cosigning physician, performed a history & physical examination of the patient. Lungs sounds are clear. Maintaining good O2 saturations in the 90s on room air. I discussed the assessment and plan of care with my nurse practitioner, Lizeth Galicia. I attest to the above note as dictated by her.
[2017-12-15] MEDS ORDERED: WARFARIN 5 MG TAB PO ONE (18:00)
== END 2017-12-15 12:30 | disposition home or self-care (01) ==
LOC: EC 14:02 → 4MS4W 16:30
PROVIDERS: ADMIT Internal Medicine; ATTEND Internal Medicine
DX: I50.23 Acute on chronic systolic (congestive) heart failure (principal); J96.01 Acute respiratory failure with hypoxia; Q87.40 Marfan syndrome, unspecified; I48.2 Chronic atrial fibrillation; E03.9 Hypothyroidism, unspecified; Z95.2 Presence of prosthetic heart valve; H54.61 Unqualified visual loss, right eye, normal vision left eye; D69.6 Thrombocytopenia, unspecified; D64.9 Anemia, unspecified; M19.90 Unspecified osteoarthritis, unspecified site; M25.551 Pain in right hip; X50.1XXA Overexertion from prolonged static or awkward postures, initial encounter; Z79.01 Long term (current) use of anticoagulants; Z79.1 Long term (current) use of non-steroidal anti-inflammatories (NSAID); Z79.899 Other long term (current) drug therapy; Z86.79 Personal history of other diseases of the circulatory system; Z87.19 Personal history of other diseases of the digestive system
CPT/HCPCS: 36415; 71046; 73501; 80048; 80053; 82550; 82553; 83735; 83880; 84484; 85025; 85610; 85730; 93005; 96374; 96375; 96376; 99285

== ENCOUNTER 2021-07-01 16:43 | Inpatient (IN) | payer MEDICARE ==
[2021-07-01 18:35] LABS: HCT 40.2 % (34.0-46.0); HGB 12.6 gm/dL (11.4-16.0); Hypochromasia Slight; MCHC 31.3 g/dL (31.0-37.0); MCV 89.7 fL (80.0-100.0); Mean Platelet Volume 9.3; Platelet Count 139 k/uL (150-450); RBC 4.48 m/uL (3.80-5.40); RDW 15.2 % (11.5-15.5); WBC 15.6 k/uL (3.8-10.6)
[2021-07-01 18:45] LABS: Albumin 4.4 g/dL (3.5-5.0); Calcium 9.3 mg/dL (8.4-10.2); Potassium 4.1 mmol/L (3.5-5.1); Total Bilirubin 1.2 mg/dL (0.2-1.3)
[2021-07-01] MEDS ORDERED: methylPREDNISolone SOD SUCCI 125 MG/2 ML VIAL IV STA (19:51)
[2021-07-01] MEDS ORDERED: IPRATROPIUM-ALBUTEROL 3 ML NEB INHALATION STA (19:51)
--- NOTE | 2021-07-01 19:52 | ED ---
General Adult HPI - General Chief complaint: Upper Respiratory Infection Stated complaint: KATIE,Cough Time Seen by Provider: 07/01/21 19:09 Source: patient Mode of arrival: wheelchair Limitations: no limitations - History of Present Illness Initial comments: 66-year-old female with a past medical history of atrial fibrillation, heart failure, aortic aneurysm repair presents to the emergency room for a chief complaint of cough. Patient states she takes care of her granddaughter 2 days a week and her granddaughter was sick last week. Patient states that she herself for the past 3 days has had a cough and weakness. States she has some shortness of breath. Patient states she cannot lie flat. She saw her primary care doctor today who recommended she come to the emergency room.Patient has no other complaints at this time including shortness of breath, chest pain, abdominal pain, nausea or vomiting, headache, or visual changes. - Related Data Home Medications Medication Instructions Recorded Confirmed Metoprolol Succinate [Toprol XL] 100 mg PO DAILY 12/01/15 07/01/21 Levothyroxine Sodium [Synthroid] 150 mcg PO DAILY 12/02/15 07/01/21 Losartan Potassium 100 mg PO DAILY 12/02/15 07/01/21 Potassium Chloride [Klor-Con 20] 10 meq PO HS 12/02/15 07/01/21 Warfarin [Coumadin] 5 mg PO SUTUWETHFRSA@2100 12/02/15 07/01/21 Furosemide [Lasix] 40 mg PO BID 12/13/17 07/01/21 Azithromycin [Zithromax Tri-Jeff (3 500 mg PO DAILY 07/01/21 07/01/21 tabs)] Warfarin Sodium 7.5 mg PO MO 07/01/21 07/01/21 predniSONE See Taper PO DIRECTED 07/01/21 07/01/21 Allergies Allergy/AdvReac Type Severity Reaction Status Date / Time No Known Allergies Allergy Verified 07/01/21 21:03 Review of Systems ROS Statement: Those systems with pertinent positive or pertinent negative responses have been documented in the HPI. ROS Other: All systems not noted in ROS Statement are negative. Past Medical History Past Medical History: Atrial Fibrillation, Heart Failure, Eye Disorder, Osteoarthritis (OA), Thyroid Disorder Additional Past Medical History / Comment(s): History of Marfan syndrome with previous aortic valve replacement and repair of an ascending and descending aortic aneurysm, hypothyroidism, history of right eye blindness along with a right retinal eye vein occlusion, scoliosis of the spine. History of Any Multi-Drug Resistant Organisms: None Reported Past Surgical History: Cardiac Valve Replacement, Heart Catheterization, Hysterectomy, Orthopedic Surgery Additional Past Surgical History / Comment(s): Aortic valve replacement with placement of a mechanical valve, and upper aortic aneurysm repair 40 yrs ago at [facility], descending aortic repair [facility], bilateral cataract removal with lens, R knee ACL repair. Past Anesthesia/Blood Transfusion Reactions: No Reported Reaction Additional Past Anesthesia/Blood Transfusion Reaction / Comment(s): Pt. believes she has received blood in the past without reaction. Past Psychological History: No Psychological Hx Reported Smoking Status: Never smoker Past Alcohol Use History: None Reported Past Drug Use History: None Reported - Past Family History Father Family Medical History: Unable to Obtain Additional Family Medical History / Comment(s): Father is . Pt unable to give history-becomes very tearful speaking of parents. Mother Family Medical History: Unable to Obtain Additional Family Medical History / Comment(s): Mother is . General Exam Limitations: no limitations General appearance: alert, in no apparent distress Head exam: Present: atraumatic Eye exam: Present: normal appearance, PERRL, EOMI. Absent: scleral icterus, conjunctival injection ENT exam: Present: normal exam, mucous membranes moist Neck exam: Present: normal inspection, full ROM. Absent: tenderness Respiratory exam: Present: wheezes (Mild wheezing noted) Cardiovascular Exam: Present: regular rate, normal rhythm, normal heart sounds GI/Abdominal exam: Present: soft, normal bowel sounds. Absent: distended, tenderness Course Vital Signs 07/01/21 07/01/21 07/01/21 17:21 20:07 20:19 Temperature 99.4 F Pulse Rate 86 84 80 Respiratory 20 Rate Blood Pressure 122/67 O2 Sat by Pulse 97 Oximetry 07/01/21 07/01/21 07/01/21 20:24 20:51 23:28 Temperature Pulse Rate 88 74 Respiratory 20 20 24 Rate Blood Pressure O2 Sat by Pulse 94 L 94 L Oximetry 07/01/21 23:30 Temperature Pulse Rate 82 Respiratory 18 Rate Blood Pressure O2 Sat by Pulse 94 L Oximetry EKG Findings - EKG Comments: EKG Findings:: Atrial fibrillation, ventricular rate 90, QRS duration 88, QTC 430 Medical Decision Making - Medical Decision Making Patient presents with stable vitals however nurse reports that when she checked her on room air when they put her in the room she was 88%. Patient has required oxygen to remain in the 90%. EKG shows atrial fibrillation which is chronic for patient. She does have leukocytosis. CMP unremarkable aside from some dehydration. No evidence for heart failure at this time. No chest pain. Stevenson virus was negative. Chest x-ray was unremarkable however CTA was obtained given elevated d-dimer which did show a right basilar pulmonary infiltrate which appears increased. We will start her on antibiotics. There is also an aneurysm of 4.6 cm noted of the aortic arch with slight dissection that is not changed compared to the old chest CT from 06/26/2010. Patient has history of this. Is not complaining of any related symptoms. Given hypoxia and pneumonia patient will be admitted - Lab Data Result diagrams: 07/01/21 17:29 07/01/21 17:29 Lab Results 07/01/21 07/01/21 07/01/21 Range/Units 17:29 17:29 17:29 WBC 15.6 H (3.8-10.6) k/uL RBC 4.48 (3.80-5.40) m/uL Hgb 12.6 (11.4-16.0) gm/dL Hct 40.2 (34.0-46.0) % MCV 89.7 (80.0-100.0) fL MCH 28.0 (25.0-35.0) pg MCHC 31.3 (31.0-37.0) g/dL RDW 15.2 (11.5-15.5) % Plt Count 139 L (150-450) k/uL MPV 9.3 Hypochromasia Slight D-Dimer (<0.60) mg/L FEU Sodium 138 (137-145) mmol/L Potassium 4.1 (3.5-5.1) mmol/L Chloride 96 L (98-107) mmol/L Carbon Dioxide 33 H (22-30) mmol/L Anion Gap 9 mmol/L BUN 25 H (7-17) mg/dL Creatinine 0.89 (0.52-1.04) mg/dL Est GFR (CKD-EPI)AfAm 78 (>60 ml/min/1.73 sqM) Est GFR (CKD-EPI)NonAf 68 (>60 ml/min/1.73 sqM) Glucose 124 H (74-99) mg/dL Calcium 9.3 (8.4-10.2) mg/dL Total Bilirubin 1.2 (0.2-1.3) mg/dL AST 32 (14-36) U/L ALT 22 (4-34) U/L Alkaline Phosphatase 109 (38-126) U/L Troponin I (0.000-0.034) ng/mL NT-Pro-B Natriuret Pep pg/mL Total Protein 8.0 (6.3-8.2) g/dL Albumin 4.4 (3.5-5.0) g/dL Coronavirus (PCR) Not Detected (Not Detectd) 07/01/21 07/01/21 07/01/21 Range/Units 17:29 17:29 20:10 WBC (3.8-10.6) k/uL RBC (3.80-5.40) m/uL Hgb (11.4-16.0) gm/dL Hct (34.0-46.0) % MCV (80.0-100.0) fL MCH (25.0-35.0) pg MCHC (31.0-37.0) g/dL RDW (11.5-15.5) % Plt Count (150-450) k/uL MPV Hypochromasia D-Dimer 0.73 H (<0.60) mg/L FEU Sodium (137-145) mmol/L Potassium (3.5-5.1) mmol/L Chloride (98-107) mmol/L Carbon Dioxide (22-30) mmol/L Anion Gap mmol/L BUN (7-17) mg/dL Creatinine (0.52-1.04) mg/dL Est GFR (CKD-EPI)AfAm (>60 ml/min/1.73 sqM) Est GFR (CKD-EPI)NonAf (>60 ml/min/1.73 sqM) Glucose (74-99) mg/dL Calcium (8.4-10.2) mg/dL Total Bilirubin (0.2-1.3) mg/dL AST (14-36) U/L ALT (4-34) U/L Alkaline Phosphatase (38-126) U/L Troponin I <0.012 (0.000-0.034) ng/mL NT-Pro-B Natriuret Pep 2290 pg/mL Total Protein (6.3-8.2) g/dL Albumin (3.5-5.0) g/dL Coronavirus (PCR) (Not Detectd) Disposition Clinical Impression: Acute respiratory failure with hypoxia, Cough, Pneumonia Disposition: ADMITTED IP TO THIS HOSP Is patient prescribed a controlled substance at d/c from ED?: No Referrals: Dillon Scott DO [Primary Care Provider] - 1-2 days Time of Disposition: 23:43
--- NOTE | 2021-07-01 19:57 | XR ---
EXAMINATION TYPE: XR chest 2V DATE OF EXAM: 07/01/2021 COMPARISON: 12/13/2017 HISTORY: Cough TECHNIQUE: FINDINGS: There is poor inspiration. There is elevated right diaphragm with right basilar atelectasis . There is no definite heart failure. I see no definite pleural effusion. There are sternal wires and cardiac valve surgery. IMPRESSION: There is chronic atelectasis at the right lung base that is the same or slightly worse th an last exam. No obvious heart failure.
[2021-07-01] MEDS ORDERED: MORPHINE SULFATE 4 MG/ML SYRINGE IVP STA (21:47)
--- NOTE | 2021-07-01 23:07 | CT ---
EXAMINATION TYPE: CT chest angio for PE DATE OF EXAM: 07/01/2021 COMPARISON: 06/26/2010 HISTORY: SOB, cough CT DLP: 977.6 mGycm Automated exposure control for dose reduction was used. CONTRAST: Performed with IV Contrast, patient injected with 100 mL of Isovue 370. There are 3-D post processed images. There is elevated right diaphragm with infiltrate and atelectasis right lung base. Heart is enlarged. There is cardiac valve surgery at the aortic valve thoracic aorta is atheromatous. There is 4.6 cm a neurysm of the aortic arch. There is thrombus on the anterior aspect of the aneurysm involving the SM A aorta consistent with limited dissection. This measures 2.6 cm in thickness. There is no evidence of filling defect in the pulmonary arteries. There are large central pulmonary a rteries consistent with pulmonary hypertension. There are sternal wires. Thoracic spine is intact. Th ere is probably a 1 cm calcified gallstone. IMPRESSION: No evidence of pulmonary embolism. Moderate cardiomegaly. Aneurysm of the aortic arch with limited dissection of the ascending aorta. Di ssection is not changed significantly compared to the old chest CT scan of 06/26/2010. Right basilar pulmonary infiltrate and atelectasis. This appears increased compared to old CT scan.
[2021-07-01] MEDS ORDERED: PNEUMONIA PROTOCOL UTILIZED 1 EACH MISC PO PRN (23:43)
[2021-07-01] MEDS ORDERED: AZITHROMYCIN 500 MG in SODIUM CHLORIDE 0.9% 250 ML IVPB STA (23:43)
[2021-07-01] MEDS ORDERED: IPRATROPIUM-ALBUTEROL 3 ML NEB INHALATION PRN (23:43)
[2021-07-02] MEDS: SODIUM CHLORIDE 0.9% 1,000 ML IV SCH ×2 (01:23→11:10)
[2021-07-02 01:24] LABS: INR 2.8 (<1.2); Prothrombin Time 27.4 sec (9.0-12.0)
[2021-07-02] MEDS: FUROSEMIDE 40 MG TAB PO SCH ×3 (01:26→20:49)
[2021-07-02] MEDS: LEVOTHYROXINE 75 MCG TAB PO SCH (08:23)
[2021-07-02] MEDS: METOPROLOL SUCCINATE (ER) 100 MG TAB.ER.24H PO SCH (08:24)
[2021-07-02] MEDS: LOSARTAN 50 MG TAB PO SCH (08:24)
[2021-07-02] MEDS: IPRATROPIUM-ALBUTEROL 3 ML NEB INHALATION SCH ×4 (08:26→20:16)
[2021-07-02 09:02] LABS: INR 3.1 (<1.2); Prothrombin Time 29.7 sec (9.0-12.0)
--- NOTE | 2021-07-02 15:53 | P.CNPUL ---
History of Present Illness Consult date: 07/02/21 Requesting physician: Dillon Scott Reason for consult: dyspnea, cough Chief complaint: Shortness of breath, cough History of present illness: This is a 66-year-old white female patient of Dr. Scott with past medical history of chronic systolic CHF, atrial fibrillation, history of Marfan syndrome with previous history of aortic valve replacement and repair of an ascending and descending aortic aneurysm, hypothyroidism, bilateral cataract surgeries, osteoarthritis. Patient is a lifetime nonsmoker, no history of chronic lung disease. Patient used to follow with Dr. Ventura in the pulmonary clinic for primary care services until she switched her insurance to [employer] and patient started seeing Dr. Scott for PCP services. Patient is on an as dose of oral Lasix 40 mg twice daily. She is on Coumadin for history of aortic valve replacement. 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 Patient tested negative for COVID-19. Initial symptoms started with a nasal drip, sore throat, and progressed to shortness of breath, cough, patient was having some orthopnea, she was initially bringing up some sputum, not bringing up any sputum now. No complaints of chest pain, no hemoptysis, denies any fever, no nausea or vomiting, she went to see Dr. Scott in the office a few days ago and she was given a steroid and antibiotic injection, and was started on antibiotics. In addition she had reported that she put on 10 pounds of weight in the last 1 month, and she is having some increased swelling in her bilateral lower extremities, in the emergency department chest x-ray was completed showing chronic atelectasis at the right lung base that may be the same or slightly worse than the last exam. White blood cell count was elevated at 15.7, d-dimer was 0.73, INR was 2.8, BUN is 25, creatinine 0.89, LFTs within normal limits, troponin was less than 0.012, proBNP was 2290, COVID-19 PCR was negative, lactic acid was within normal limits at 0.8. Patient was started on a combination of azithromycin and Rocephin, breathing treatments, and we were consulted in regards to possibility of right basilar pneumonia. Review of Systems All systems: negative Constitutional: Denies chills, Denies fever Eyes: denies blurred vision, denies pain Ears, nose, mouth and throat: Reports nasal congestion, Reports nasal discharge, Denies headache, Denies sore throat Cardiovascular: Reports edema, Denies chest pain, Denies shortness of breath Respiratory: Reports congestion, Reports cough with sputum, Reports dyspnea, Reports respiratory infections, Denies cough Gastrointestinal: Denies abdominal pain, Denies diarrhea, Denies nausea, Denies vomiting Genitourinary: Denies dysuria, Denies hematuria Musculoskeletal: Denies myalgias Integumentary: Denies pruritus, Denies rash Neurological: Denies numbness, Denies weakness Psychiatric: Denies anxiety, Denies depression Endocrine: Denies fatigue, Denies weight change Past Medical History Past Medical History: Atrial Fibrillation, Heart Failure, Eye Disorder, Hypertension, Osteoarthritis (OA), Pneumonia, Thyroid Disorder Additional Past Medical History / Comment(s): History of Marfan syndrome with previous aortic valve replacement and repair of an ascending and descending aortic aneurysm, hypothyroidism, history of right eye blindness along with a right retinal eye vein occlusion, scoliosis of the spine. History of Any Multi-Drug Resistant Organisms: None Reported Past Surgical History: Cardiac Valve Replacement, Heart Catheterization, Hysterectomy, Orthopedic Surgery Additional Past Surgical History / Comment(s): Aortic valve replacement with placement of a mechanical valve, and upper aortic aneurysm repair 40 yrs ago at [facility], descending aortic repair [facility], bilateral cataract removal with lens, R knee ACL repair. Past Anesthesia/Blood Transfusion Reactions: No Reported Reaction Additional Past Anesthesia/Blood Transfusion Reaction / Comment(s): Pt. believes she has received blood in the past without reaction. Past Psychological History: No Psychological Hx Reported Additional Psychological History / Comment(s): Pt lives at home and her son lives with her. She uses a cane to ambulate. She drives. She is independent. Smoking Status: Never smoker Past Alcohol Use History: Occasional Past Drug Use History: None Reported - Past Family History Father Family Medical History: Unable to Obtain Additional Family Medical History / Comment(s): Father is . Pt unable to give history-becomes very tearful speaking of parents. Mother Family Medical History: Unable to Obtain Additional Family Medical History / Comment(s): Mother is . Medications and Allergies Home Medications Medication Instructions Recorded Confirmed Type Metoprolol Succinate [Toprol XL] 100 mg PO DAILY 12/01/15 07/01/21 History Levothyroxine Sodium [Synthroid] 150 mcg PO DAILY 12/02/15 07/01/21 History Losartan Potassium 100 mg PO DAILY 12/02/15 07/01/21 History Potassium Chloride [Klor-Con 20] 10 meq PO HS 12/02/15 07/01/21 History Warfarin [Coumadin] 5 mg PO SUTUWETHFRSA@2100 12/02/15 07/01/21 History Furosemide [Lasix] 40 mg PO BID 12/13/17 07/01/21 History Azithromycin [Zithromax Tri-Jeff (3 500 mg PO DAILY 07/01/21 07/01/21 History tabs)] Warfarin Sodium 7.5 mg PO MO 07/01/21 07/01/21 History predniSONE See Taper PO DIRECTED 07/01/21 07/01/21 History Allergies Allergy/AdvReac Type Severity Reaction Status Date / Time No Known Allergies Allergy Verified 07/01/21 21:03 Physical Exam Vitals: Vital Signs Temp Pulse Pulse Resp BP BP Pulse Ox 07/02/21 11:54 56 L 20 07/02/21 11:43 54 L 20 07/02/21 08:40 74 07/02/21 08:32 16 07/02/21 08:31 73 07/02/21 08:17 73 104/70 07/02/21 07:58 97.5 F L 79 16 95/60 91 L 07/02/21 02:45 20 07/02/21 02:24 98.2 F 86 16 104/68 90 L 07/02/21 02:17 24 94 L 07/02/21 01:32 84 22 135/86 94 L 07/01/21 23:30 82 18 94 L 07/01/21 23:28 74 24 94 L 07/01/21 20:51 88 20 94 L 07/01/21 20:24 20 07/01/21 20:19 80 07/01/21 20:07 84 07/01/21 17:21 99.4 F 86 20 122/67 97 Intake and Output 07/01/21 07/02/21 07/02/21 22:59 06:59 14:59 Other: Voiding Method Toilet # Voids 1 1 Weight 133.81 kg 133.81 kg GENERAL EXAM: Alert, pleasant 66-year-old white female, up in the chair, on room air, comfortable in no apparent distress. HEAD: Normocephalic/atraumatic. EYES: Normal reaction of pupils, equal size. Conjunctiva pink, sclera white. NOSE: Clear with pink turbinates. THROAT: No erythema or exudates. NECK: No masses, no JVD, no thyroid enlargement, no adenopathy. CHEST: No chest wall deformity. Symmetrical expansion. LUNGS: Equal air entry with diminished breath sounds at the bases, and some limited crackles CVS: Regular rate and rhythm, normal S1 and S2, patient has a click sound of a mechanical valve, loudest at the second intercostal space, left sternal border ABDOMEN: Soft, nontender. No hepatosplenomegaly, normal bowel sounds, no guarding or rigidity. EXTREMITIES: No clubbing, 1+ lower extremity edema no cyanosis, 2+ pulses and upper and lower extremities. MUSCULOSKELETAL: Muscle strength and tone normal. SPINE: No scoliosis or deformity SKIN: No rashes CENTRAL NERVOUS SYSTEM: Alert and oriented -3. No focal deficits, tone is normal in all 4 extremities. PSYCHIATRIC: Alert and oriented -3. Appropriate affect. Intact judgment and insight. Results - Laboratory Findings CBC and BMP: 07/01/21 17:29 07/01/21 17:29 PT/INR, D-dimer PT 29.7 sec (9.0-12.0) H 07/02/21 08:18 INR 3.1 (<1.2) H 07/02/21 08:18 D-Dimer 0.73 mg/L FEU (<0.60) H 07/01/21 20:10 Abnormal lab findings: Abnormal Labs 07/01/21 07/01/21 07/01/21 17:29 17:29 20:10 WBC 15.6 H Plt Count 139 L PT INR APTT D-Dimer 0.73 H Chloride 96 L Carbon Dioxide 33 H BUN 25 H Glucose 124 H 07/02/21 07/02/21 00:35 08:18 WBC Plt Count PT 27.4 H 29.7 H INR 2.8 H 3.1 H APTT 36.0 H D-Dimer Chloride Carbon Dioxide BUN Glucose - Diagnostic Findings Chest x-ray: report reviewed, image reviewed CT scan - chest: report reviewed, image reviewed Assessment and Plan Plan: Assessment: #1. Acute right lower lung pneumonia, community acquired, COVID-19 PCR was negative #2. Mild exacerbation of CHF, with systolic dysfunction #3. History of mechanical aortic valve replacement, on chronic anticoagulation with Coumadin #4. History of Marfan syndrome with previous history of a ascending and descending aortic aneurysm repair #5. History of atrial fibrillation, on Coumadin #6. Lifetime nonsmoker #7. Hypothyroidism #8. Hyperlipidemia #9. Chronic anemia, unspecified #10. Scoliosis deformity of the spine #11. History of cataract surgeries Plan: Continue azithromycin and Rocephin Continue home dose diuretics We will add breathing treatments We'll send a sputum culture Send a procalcitonine level Continue Coumadin, daily PT/INR I performed a history & physical examination of the patient and discussed their management with my nurse practitioner, Malka Francisco. I reviewed the nurse practitioner's note and agree with the documented findings and plan of care. Lung sounds are positive for crackles throughout the lung madrigal. The findings and the impression was discussed with the patient. I attest to the documentation by the nurse practitioner. Time with Patient: Greater than 30
[2021-07-02] MEDS ORDERED: WARFARIN 2.5 MG TAB PO ONE (18:00)
[2021-07-02] MEDS ORDERED: WARFARIN 5 MG TAB PO SCH (18:00)
[2021-07-02] MEDS: POTASSIUM CHLORIDE ER 10 MEQ TAB.ER.PRT PO SCH (20:49)
[2021-07-02] MEDS: AZITHROMYCIN 500 MG TAB PO SCH (21:55)
[2021-07-03] MEDS: LEVOTHYROXINE 75 MCG TAB PO SCH (06:13)
[2021-07-03] MEDS: SODIUM CHLORIDE 0.9% 1,000 ML IV SCH (07:41)
[2021-07-03] MEDS: LOSARTAN 50 MG TAB PO SCH (07:42)
[2021-07-03] MEDS: METOPROLOL SUCCINATE (ER) 100 MG TAB.ER.24H PO SCH (07:42)
[2021-07-03] MEDS: FUROSEMIDE 40 MG TAB PO SCH ×2 (07:42→20:35)
[2021-07-03] MEDS: IPRATROPIUM-ALBUTEROL 3 ML NEB INHALATION SCH ×4 (07:48→19:15)
[2021-07-03 08:16] LABS: INR 2.4 (<1.2); Prothrombin Time 23.6 sec (9.0-12.0)
--- NOTE | 2021-07-03 15:01 | P.PN ---
Subjective Progress Note Date: 07/03/21 This is a 66-year-old white female patient of Dr. Scott with past medical history of chronic systolic CHF, atrial fibrillation, history of Marfan syndrome with previous history of aortic valve replacement and repair of an ascending and descending aortic aneurysm, hypothyroidism, bilateral cataract surgeries, osteoarthritis. Patient is a lifetime nonsmoker, no history of chronic lung disease. Patient used to follow with Dr. Ventura in the pulmonary clinic for primary care services until she switched her insurance to [facility] and patient started seeing Dr. Scott for PCP services. Patient is on an as dose of oral Lasix 40 mg twice daily. She is on Coumadin for history of aortic valve replacement. 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 Patient tested negative for COVID-19. Initial symptoms started with a nasal drip, sore throat, and progressed to shortness of breath, cough, patient was having some orthopnea, she was initially bringing up some sputum, not bringing up any sputum now. No complaints of chest pain, no hemoptysis, denies any fever, no nausea or vomiting, she went to see Dr. Scott in the office a few days ago and she was given a steroid and antibiotic injection, and was started on antibiotics. In addition she had reported that she put on 10 pounds of weight in the last 1 month, and she is having some increased swelling in her bilateral lower extremities, in the emergency department chest x-ray was completed showing chronic atelectasis at the right lung base that may be the same or slightly worse than the last exam. White blood cell count was elevated at 15.7, d-dimer was 0.73, INR was 2.8, BUN is 25, creatinine 0.89, LFTs within normal limits, troponin was less than 0.012, proBNP was 2290, COVID-19 PCR was negative, lactic acid was within normal limits at 0.8. Patient was started on a combination of azithromycin and Rocephin, breath ing treatments, and we were consulted in regards to possibility of right basilar pneumonia. On the 07/03/2021 patient seen in follow-up on medical surgical floor, is awake and alert, in no acute distress, breathing comfortably, room air pulse ox is 96%, her cough is improved, she's been afebrile, vital signs have been stable, she's had no acute events overnight, no hemoptysis no complaints of chest pain, she remains on a combination of azithromycin and Rocephin, she is on home dose Lasix 40 mg twice daily, remains on nebulized bronchodilators. Objective - Vital Signs Vital signs: Vital Signs Temp 98.3 F 07/03/21 13:43 Pulse 82 07/03/21 13:43 Resp 18 07/03/21 13:43 BP 111/72 07/03/21 13:43 Pulse Ox 96 07/03/21 13:43 Intake & Output 07/02/21 07/03/21 07/03/21 18:59 06:59 18:59 Other: Voiding Method Toilet # Voids 1 - Exam GENERAL EXAM: Alert, pleasant 66-year-old white female, up in the chair, on room air, comfortable in no apparent distress. HEAD: Normocephalic/atraumatic. EYES: Normal reaction of pupils, equal size. Conjunctiva pink, sclera white. NOSE: Clear with pink turbinates. THROAT: No erythema or exudates. NECK: No masses, no JVD, no thyroid enlargement, no adenopathy. CHEST: No chest wall deformity. Symmetrical expansion. LUNGS: Equal air entry with diminished breath sounds at the bases, and some limited crackles CVS: Regular rate and rhythm, normal S1 and S2, patient has a click sound of a mechanical valve, loudest at the second intercostal space, left sternal border ABDOMEN: Soft, nontender. No hepatosplenomegaly, normal bowel sounds, no guarding or rigidity. EXTREMITIES: No clubbing, 1+ lower extremity edema no cyanosis, 2+ pulses and upper and lower extremities. MUSCULOSKELETAL: Muscle strength and tone normal. SPINE: No scoliosis or deformity SKIN: No rashes CENTRAL NERVOUS SYSTEM: Alert and oriented -3. No focal deficits, tone is normal in all 4 extremities. PSYCHIATRIC: Alert and oriented -3. Appropriate affect. Intact judgment and insight. - Labs CBC & Chem 7: 07/01/21 17:29 07/01/21 17:29 Labs: Abnormal Lab Results - Last 24 Hours (Table) 07/03/21 Range/Units 07:27 PT 23.6 H (9.0-12.0) sec INR 2.4 H (<1.2) Microbiology - Last 24 Hours (Table) 07/03/21 00:44 Sputum Culture - Preliminary Sputum 07/02/21 15:24 Gram Stain - Preliminary Sputum Sputum Culture - Preliminary 07/02/21 00:52 Blood Culture - Preliminary Blood No Growth after 24 hours 07/02/21 00:35 Blood Culture - Preliminary Blood No Growth after 24 hours Assessment and Plan Plan: Assessment: #1. Acute right lower lung pneumonia, community acquired, COVID-19 PCR was negative #2. Mild exacerbation of CHF, with systolic dysfunction #3. History of mechanical aortic valve replacement, on chronic anticoagulation with Coumadin #4. History of Marfan syndrome with previous history of a ascending and descending aortic aneurysm repair #5. History of atrial fibrillation, on Coumadin #6. Lifetime nonsmoker #7. Hypothyroidism #8. Hyperlipidemia #9. Chronic anemia, unspecified #10. Scoliosis deformity of the spine #11. History of cataract surgeries Plan: No acute events overnight No fever or chills Breathing comfortably on room air Continue azithromycin and Rocephin Continue home dose diuretics Continue Coumadin, daily PT/INR Follow-up chest x-ray tomorrow Possible discharge home in the next 24 hours if remains stable and doing well I performed a history & physical examination of the patient and discussed their management with my nurse practitioner, Malka Francisco. I reviewed the nurse practitioner's note and agree with the documented findings and plan of care. Lung sounds are positive for crackles throughout the lung madrigal. The findings and the impression was discussed with the patient. I attest to the documentation by the nurse practitioner. Time with Patient: Less than 30
[2021-07-03] MEDS ORDERED: WARFARIN 3 MG TAB PO ONE (18:00)
[2021-07-03] MEDS: CEFDINIR 300 MG CAP PO SCH (20:35)
[2021-07-03] MEDS: POTASSIUM CHLORIDE ER 10 MEQ TAB.ER.PRT PO SCH (20:35)
[2021-07-03] MEDS: AZITHROMYCIN 500 MG TAB PO SCH (20:35)
[2021-07-04] MEDS: LEVOTHYROXINE 75 MCG TAB PO SCH (05:25)
[2021-07-04] MEDS: SODIUM CHLORIDE 0.9% 1,000 ML IV SCH (05:28)
[2021-07-04 07:38] LABS: INR 1.9 (<1.2); Prothrombin Time 19.1 sec (9.0-12.0)
[2021-07-04] MEDS: IPRATROPIUM-ALBUTEROL 3 ML NEB INHALATION SCH ×2 (07:48→12:21)
[2021-07-04] MEDS: CEFDINIR 300 MG CAP PO SCH (08:41)
[2021-07-04] MEDS: FUROSEMIDE 40 MG TAB PO SCH (08:41)
[2021-07-04] MEDS: METOPROLOL SUCCINATE (ER) 100 MG TAB.ER.24H PO SCH (08:41)
[2021-07-04] MEDS: LOSARTAN 50 MG TAB PO SCH (08:41)
--- NOTE | 2021-07-04 11:51 | P.PN ---
Subjective Progress Note Date: 07/04/21 This is a 66-year-old white female patient of Dr. Scott with past medical history of chronic systolic CHF, atrial fibrillation, history of Marfan syndrome with previous history of aortic valve replacement and repair of an ascending and descending aortic aneurysm, hypothyroidism, bilateral cataract surgeries, osteoarthritis. Patient is a lifetime nonsmoker, no history of chronic lung disease. Patient used to follow with Dr. Ventura in the pulmonary clinic for primary care services until she switched her insurance to [facility] and patient started seeing Dr. Scott for PCP services. Patient is on an as dose of oral Lasix 40 mg twice daily. She is on Coumadin for history of aortic valve replacement. 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 Patient tested negative for COVID-19. Initial symptoms started with a nasal drip, sore throat, and progressed to shortness of breath, cough, patient was having some orthopnea, she was initially bringing up some sputum, not bringing up any sputum now. No complaints of chest pain, no hemoptysis, denies any fever, no nausea or vomiting, she went to see Dr. Scott in the office a few days ago and she was given a steroid and antibiotic injection, and was started on antibiotics. In addition she had reported that she put on 10 pounds of weight in the last 1 month, and she is having some increased swelling in her bilateral lower extremities, in the emergency department chest x-ray was completed showing chronic atelectasis at the right lung base that may be the same or slightly worse than the last exam. White blood cell count was elevated at 15.7, d-dimer was 0.73, INR was 2.8, BUN is 25, creatinine 0.89, LFTs within normal limits, troponin was less than 0.012, proBNP was 2290, COVID-19 PCR was negative, lactic acid was within normal limits at 0.8. Patient was started on a combination of azithromycin and Rocephin, breat joey treatments, and we were consulted in regards to possibility of right basilar pneumonia. On the 07/03/2021 patient seen in follow-up on medical surgical floor, is awake and alert, in no acute distress, breathing comfortably, room air pulse ox is 96%, her cough is improved, she's been afebrile, vital signs have been stable, she's had no acute events overnight, no hemoptysis no complaints of chest pain, she remains on a combination of azithromycin and Rocephin, she is on home dose Lasix 40 mg twice daily, remains on nebulized bronchodilators. The patient is seen today 07/04/2021 in follow-up on the regular medical floor. She is currently sitting up in a chair at the bedside. Awake and alert in no acute distress. Maintaining good O2 saturations in the 90s on room air. No fever chills or night sweats. Blood cultures reveal no growth to date. Sputum culture pending. INR 1.9. She is continued on DuoNeb inhalations, antibiotics in the form of Omnicef. Oral diuretics. Continue on warfarin. Objective - Vital Signs Vital signs: Vital Signs Temp 98 F 07/04/21 09:00 Pulse 90 07/04/21 09:00 Resp 20 07/04/21 09:00 BP 120/74 07/04/21 09:00 Pulse Ox 95 07/04/21 09:00 Intake & Output 07/03/21 07/04/21 07/04/21 18:59 06:59 18:59 Other: Voiding Method Toilet Toilet Toilet # Voids 3 1 # Bowel Movements 1 - Exam GENERAL EXAM: Alert, active, very pleasant 66-year-old female patient, on room air, comfortable in no apparent distress. HEAD: Normocephalic. EYES: Normal reaction of pupils, equal size. NOSE: Clear with pink turbinates. THROAT: No erythema or exudates. NECK: No masses, no JVD. CHEST: No chest wall deformity. LUNGS: Equal air entry with faint crackles in the right base. CVS: S1 and S2 normal with no audible murmur, regular rhythm. ABDOMEN: No hepatosplenomegaly, normal bowel sounds, no guarding or rigidity. SPINE: No scoliosis or deformity SKIN: No rashes CENTRAL NERVOUS SYSTEM: No focal deficits, tone is normal in all 4 extremities. EXTREMITIES: There is no peripheral edema. No clubbing, no cyanosis. Perip heral pulses are intact. - Labs CBC & Chem 7: 07/01/21 17:29 07/01/21 17:29 Labs: Abnormal Lab Results - Last 24 Hours (Table) 07/04/21 Range/Units 07:15 PT 19.1 H (9.0-12.0) sec INR 1.9 H (<1.2) Microbiology - Last 24 Hours (Table) 07/03/21 00:44 Gram Stain - Preliminary Sputum Sputum Culture - Preliminary 07/02/21 00:35 Blood Culture - Preliminary Blood No Growth after 48 hours 07/02/21 00:52 Blood Culture - Preliminary Blood No Growth after 48 hours 07/02/21 15:24 Gram Stain - Preliminary Sputum Sputum Culture - Preliminary Assessment and Plan Assessment: 1 Acute right lower lung pneumonia, community acquired, COVID-19 PCR was negative 2 Mild exacerbation of CHF, with systolic dysfunction 3 History of mechanical aortic valve replacement, on chronic anticoagulation with Coumadin 4 History of Marfan syndrome with previous history of a ascending and descending aortic aneurysm repair 5 History of atrial fibrillation, on Coumadin 6 Lifetime nonsmoker 7 Hypothyroidism 8 Hyperlipidemia 9 Chronic anemia, unspecified 10 Scoliosis deformity of the spine 11 History of cataract surgeries Plan: The patient was seen and evaluated by Dr. Villalba Cleared for discharge from the pulmonary standpoint Complete a seven-day course of antibiotics Albuterol HFA as needed I, the cosigning physician, performed a history & physical examination of the patient. Lungs sounds crackles in the right base. Maintaining good O2 saturations in the 90s on room air. I discussed the assessment and plan of care with my nurse practitioner, Lizeth Galicia. I attest to the above note as dictated by her.
[2021-07-04] MEDS ORDERED: ALBUTEROL NEBULIZED 2.5 MG/3 ML INHALATION SCH (12:30)
[2021-07-04 15:11] VITALS: BP 105/62; PULSE 91; RESP 18; TEMP 97.6
[2021-07-04] MEDS ORDERED: WARFARIN 2 MG TAB PO ONE (18:00)
[2021-07-06] MEDS ORDERED: WARFARIN 7.5 MG TAB PO SCH (18:00)
== END 2021-07-04 15:49 | disposition home or self-care (01) | DRG 194 ==
LOC: EC 16:43 → 4SSUR 23:33 → OBSVTOIN 07-02 11:12
PROVIDERS: ADMIT Family Medicine; ATTEND Family Medicine
DX: J18.9 Pneumonia, unspecified organism (principal); I50.22 Chronic systolic (congestive) heart failure; I48.20 Chronic atrial fibrillation, unspecified; Q87.40 Marfan syndrome, unspecified; J98.11 Atelectasis; Z20.822 Contact with and (suspected) exposure to COVID-19; Z95.2 Presence of prosthetic heart valve; Z90.710 Acquired absence of both cervix and uterus; Z79.899 Other long term (current) drug therapy; Z79.890 Hormone replacement therapy; Z79.01 Long term (current) use of anticoagulants; I11.0 Hypertensive heart disease with heart failure; E03.9 Hypothyroidism, unspecified; E78.5 Hyperlipidemia, unspecified; E86.0 Dehydration; H54.61 Unqualified visual loss, right eye, normal vision left eye; M41.9 Scoliosis, unspecified; D64.9 Anemia, unspecified; M19.90 Unspecified osteoarthritis, unspecified site; H26.9 Unspecified cataract
CPT/HCPCS: 36415; 71046; 71275; 80053; 83605; 83880; 84484; 85027; 85379; 85610; 85730; 87040; 87070; 87205; 87635; 93005; 94640; 94760; 96365; 96375; 99285

== ENCOUNTER 2022-04-11 13:39 | Inpatient (IN) | payer MEDICARE ==
--- NOTE | 2022-04-11 13:54 | ED ---
SOB HPI - General Chief Complaint: Shortness of Breath Stated Complaint: Afib Time Seen by Provider: 04/11/22 13:44 Source: patient, family, RN notes reviewed Mode of arrival: wheelchair Limitations: no limitations - History of Present Illness Initial Comments: Patient is a pleasant 66-year-old female presents to the emergency room with progressively worsening shortness of breath and lower extremity edema. She has been taking her Lasix as prescribed but reports symptoms have continued to slowly worsen and she now has conversational dyspnea. She has a past medical history significant for chronic systolic heart failure her last ejection fr action on record at the facility 2017 was 35-40%; she is unsure of recent echocardiogram ejection fraction. She is on warfarin for both atrial fibrillation and mechanical aortic valve secondary to Marfan syndrome. She denies any known exposure to cold water influenza. She denies any fevers or chills. She denies any chest pain, abdominal pain, nausea or vomiting. She denies any other complaints or concerns. - Related Data Home Medications Medication Instructions Recorded Confirmed Metoprolol Succinate [Toprol XL] 100 mg PO DAILY 12/01/15 04/11/22 Levothyroxine Sodium [Synthroid] 150 mcg PO DAILY 12/02/15 04/11/22 Losartan Potassium 100 mg PO DAILY 12/02/15 04/11/22 Potassium Chloride [Klor-Con 20] 10 meq PO HS 12/02/15 04/11/22 Warfarin [Coumadin] 5 mg PO HS 12/02/15 04/11/22 Furosemide [Lasix] 40 mg PO BID 12/13/17 04/11/22 Allergies Allergy/AdvReac Type Severity Reaction Status Date / Time No Known Allergies Allergy Verified 04/11/22 15:02 Review of Systems ROS Statement: Those systems with pertinent positive or pertinent negative responses have been documented in the HPI. ROS Other: All systems not noted in ROS Statement are negative. Past Medical History Past Medical History: Atrial Fibrillation, Heart Failure, Eye Disorder, Hypertension, Osteoarthritis (OA), Pneumonia, Thyroid Disorder Additional Past Medical History / Comment(s): History of Marfan syndrome with previous aortic valve replacement and repair of an ascending and descending aortic aneurysm, hypothyroidism, history of right eye blindness along with a right retinal eye vein occlusion, scoliosis of the spine. History of Any Multi-Drug Resistant Organisms: None Reported Past Surgical History: Cardiac Valve Replacement, Heart Catheterization, Hysterectomy, Orthopedic Surgery Additional Past Surgical History / Comment(s): Aortic valve replacement with placement of a mechanical valve, and upper aortic aneurysm repair 40 yrs ago at [facility], descending aortic repair [facility], bilateral cataract removal with lens, R knee ACL repair. Past Anesthesia/Blood Transfusion Reactions: No Reported Reaction Additional Past Anesthesia/Blood Transfusion Reaction / Comment(s): Pt. believes she has received blood in the past without reaction. Past Psychological History: No Psychological Hx Reported Smoking Status: Never smoker Past Alcohol Use History: Occasional Past Drug Use History: None Reported - Past Family History Father Family Medical History: Unable to Obtain Additional Family Medical History / Comment(s): Father is . Pt unable to give history-becomes very tearful speaking of parents. Mother Family Medical History: Unable to Obtain Additional Family Medical History / Comment(s): Mother is . General Exam Limitations: no limitations General appearance: alert, other (mild respiratory distress resolved with 3L via simple mask) Head exam: Present: atraumatic, normocephalic, normal inspection Eye exam: Present: normal appearance, PERRL, EOMI. Absent: scleral icterus, conjunctival injection, periorbital swelling ENT exam: Present: normal exam, mucous membranes moist Neck exam: Present: normal inspection. Absent: tenderness, meningismus, lymphadenopathy Respiratory exam: Present: rales, accessory muscle use, decreased breath sounds, prolonged expiratory. Absent: wheezes Cardiovascular Exam: Present: regular rate, irregular rhythm, clicks (mechanical) GI/Abdominal exam: Present: soft, normal bowel sounds. Absent: distended, tenderness, guarding, rebound, rigid Extremities exam: Present: full ROM, pedal edema. Absent: tenderness, calf tenderness Back exam: Present: normal inspection Neurological exam: Present: alert, oriented X3, CN II-XII intact Psychiatric exam: Present: normal affect, normal mood Skin exam: Present: erythema (mild bilateral lower extremities) Course Vital Signs 04/11/22 13:42 Temperature 98.4 F Pulse Rate 46 L Respiratory 18 Rate Blood Pressure 128/50 O2 Sat by Pulse 94 L Oximetry Medical Decision Making - Medical Decision Making High probability for CHF exacerbation however in the setting of mechanical valve on warfarin with a history of A. fib will also evaluate d-dimer and INR. Will check chest x-ray and EKG along with CBC proBNP and lactic acid levels. Will give supportive O2 and monitor closely. Chest x-ray consistent for CHF. EKG shows A. fib unchanged compared to previous. CBC with chronic anemia stable INR therapeutic BUN slightly elevated along with elevated CO2 will diurese carefully. D-dimer slightly elevated at 0.94 in the therapeutic INR along with lower extremity swelling and patient reporting symptoms of shortness of breath similar to last CHF exacerbation will defer CT at this time. Case discussed with Dr. Holland. Plan for admission for congestive heart failure; [facility] covering for patient's primary care provider Dr. Scott. Case discussed with Dr. Bynum with [facility] excepting admission requesting consult to cardiology will place orders. Patient continues to remain hemodynamically stable with improved tachypnea and purse lipped breathing on 3 L Ventimask - Lab Data Result diagrams: 04/11/22 14:16 04/11/22 14:16 Lab Results 04/11/22 04/11/22 04/11/22 Range/Units 14:16 14:16 14:16 WBC 5.6 (3.8-10.6) k/uL RBC 3.92 (3.80-5.40) m/uL Hgb 11.2 L (11.4-16.0) gm/dL Hct 36.0 (34.0-46.0) % MCV 91.7 (80.0-100.0) fL MCH 28.5 (25.0-35.0) pg MCHC 31.1 (31.0-37.0) g/dL RDW 15.4 (11.5-15.5) % Plt Count 111 L (150-450) k/uL MPV 9.8 Neutrophils % 79 % Lymphocytes % 10 % Monocytes % 7 % Eosinophils % 1 % Basophils % 0 % Neutrophils # 4.4 (1.3-7.7) k/uL Lymphocytes # 0.6 L (1.0-4.8) k/uL Monocytes # 0.4 (0-1.0) k/uL Eosinophils # 0.1 (0-0.7) k/uL Basophils # 0.0 (0-0.2) k/uL Hypochromasia Marked PT 25.8 H (9.0-12.0) sec INR 2.6 H (<1.2) D-Dimer 0.94 H (<0.60) mg/L FEU Sodium 138 (137-145) mmol/L Potassium 3.9 (3.5-5.1) mmol/L Chloride 99 (98-107) mmol/L Carbon Dioxide 37 H (22-30) mmol/L Anion Gap 2 mmol/L BUN 25 H (7-17) mg/dL Creatinine 0.93 (0.52-1.04) mg/dL Est GFR (CKD-EPI)AfAm 75 (>60 ml/min/1.73 sqM) Est GFR (CKD-EPI)NonAf 65 (>60 ml/min/1.73 sqM) Glucose 134 H (74-99) mg/dL Calcium 8.4 (8.4-10.2) mg/dL Magnesium 2.0 (1.6-2.3) mg/dL Total Bilirubin 0.5 (0.2-1.3) mg/dL AST 27 (14-36) U/L ALT 17 (4-34) U/L Alkaline Phosphatase 102 (38-126) U/L Troponin I (0.000-0.034) ng/mL NT-Pro-B Natriuret Pep pg/mL Total Protein 6.8 (6.3-8.2) g/dL Albumin 3.8 (3.5-5.0) g/dL 04/11/22 04/11/22 Range/Units 14:16 14:16 WBC (3.8-10.6) k/uL RBC (3.80-5.40) m/uL Hgb (11.4-16.0) gm/dL Hct (34.0-46.0) % MCV (80.0-100.0) fL MCH (25.0-35.0) pg MCHC (31.0-37.0) g/dL RDW (11.5-15.5) % Plt Count (150-450) k/uL MPV Neutrophils % % Lymphocytes % % Monocytes % % Eosinophils % % Basophils % % Neutrophils # (1.3-7.7) k/uL Lymphocytes # (1.0-4.8) k/uL Monocytes # (0-1.0) k/uL Eosinophils # (0-0.7) k/uL Basophils # (0-0.2) k/uL Hypochromasia PT (9.0-12.0) sec INR (<1.2) D-Dimer (<0.60) mg/L FEU Sodium (137-145) mmol/L Potassium (3.5-5.1) mmol/L Chloride (98-107) mmol/L Carbon Dioxide (22-30) mmol/L Anion Gap mmol/L BUN (7-17) mg/dL Creatinine (0.52-1.04) mg/dL Est GFR (CKD-EPI)AfAm (>60 ml/min/1.73 sqM) Est GFR (CKD-EPI)NonAf (>60 ml/min/1.73 sqM) Glucose (74-99) mg/dL Calcium (8.4-10.2) mg/dL Magnesium (1.6-2.3) mg/dL Total Bilirubin (0.2-1.3) mg/dL AST (14-36) U/L ALT (4-34) U/L Alkaline Phosphatase (38-126) U/L Troponin I <0.012 (0.000-0.034) ng/mL NT-Pro-B Natriuret Pep 1980 pg/mL Total Protein (6.3-8.2) g/dL Albumin (3.5-5.0) g/dL - EKG Data EKG Comments: Atrial fibrillation with bundle branch block, ventricular rate 60 bpm, PA interval* ms, QRS duration 99 ms, QT/QTC 392/409 ms, PRT axis *, 104, 96. - Radiology Data Radiology results: report reviewed, image reviewed Chest x-ray shows chronic pulmonary congestion with some heart failure. Disposition Clinical Impression: Systolic congestive heart failure Disposition: ADMITTED IP TO THIS HOSP Condition: Stable Is patient prescribed a controlled substance at d/c from ED?: No Referrals: Dillon Scott DO [Primary Care Provider] - 1-2 days Time of Disposition: 15:15
[2022-04-11 14:32] LABS: Basophils % (A) 0 %; Eosinophils # (A) 0.1 k/uL (0-0.7); Eosinophils % (A) 1 %; HGB 11.2 gm/dL (11.4-16.0); Hypochromasia Marked; Lymphocytes # (A) 0.6 k/uL (1.0-4.8); Lymphocytes % (A) 10 %; MCH 28.5 pg (25.0-35.0); MCHC 31.1 g/dL (31.0-37.0); MCV 91.7 fL (80.0-100.0); Mean Platelet Volume 9.8; Monocytes # (A) 0.4 k/uL (0-1.0); Monocytes % (A) 7 %; Neutrophils # (A) 4.4 k/uL (1.3-7.7); Neutrophils % (A) 79 %; Platelet Count 111 k/uL (150-450); RBC 3.92 m/uL (3.80-5.40); RDW 15.4 % (11.5-15.5); WBC 5.6 k/uL (3.8-10.6)
[2022-04-11 14:47] LABS: Albumin 3.8 g/dL (3.5-5.0); Calcium 8.4 mg/dL (8.4-10.2); Potassium 3.9 mmol/L (3.5-5.1); Total Bilirubin 0.5 mg/dL (0.2-1.3); Total Protein 6.8 g/dL (6.3-8.2)
[2022-04-11 14:54] LABS: INR 2.6 (<1.2); Prothrombin Time 25.8 sec (9.0-12.0)
--- NOTE | 2022-04-11 14:57 | XR ---
EXAMINATION TYPE: XR chest 2V DATE OF EXAM: 04/11/2022 COMPARISON: 07/01/2021 HISTORY: Short of breath TECHNIQUE: 2 views FINDINGS: There is some mild pulmonary congestion. Heart is enlarged. There is cardiac valve surgery. There is elevated right diaphragm. IMPRESSION: There is some chronic right basilar atelectasis and elevation of the right diaphragm. Chr onic mild pulmonary congestion is consistent with some degree of heart failure. No change.
[2022-04-11] MEDS ORDERED: NALOXONE 0.4 MG/ML 1 ML VIAL IV PRN (15:01)
[2022-04-11] MEDS ORDERED: FUROSEMIDE 10 MG/ML 4 ML VIAL IV STA (15:03)
--- NOTE | 2022-04-11 18:56 | P.HPIM ---
History of Present Illness H&P Date: 04/11/22 Chief Complaint: Shortness of breath 66-year-old female presents to the emergency room with progressively worsening shortness of breath and lower extremity edema. She has been taking her Lasix as prescribed but reports symptoms have continued to slowly worsen and she now has conversational dyspnea. She has a past medical history significant for chronic systolic heart failure her last ejection fraction on record at the facility 2018 was 35-40%; she is unsure of recent echocardiogram ejection fraction. She is on warfarin for both atrial fibrillation and mechanical aortic valve secondary to Marfan syndrome. She denies any known exposure to cold water influenza. She denies any fevers or chills. She denies any chest pain, abdominal pain, nausea or vomiting. She denies any other complaints or concerns. High probability for CHF exacerbation however in the setting of mechanical valve on warfarin with a history of A. fib will also evaluate d-dimer and INR. Will check chest x-ray and EKG along with CBC proBNP and lactic acid levels. Will give supportive O2 and monitor closely. Chest x-ray consistent for CHF. EKG shows A. fib unchanged compared to previous. CBC with chronic anemia stable INR therapeutic BUN slightly elevated along with elevated CO2 will diurese carefully. D-dimer slightly elevated at 0.94 in the therapeutic INR along with lower extremity swelling and patient reporting symptoms of shortness of breath similar to last CHF exacerbation will defer CT at this time. Lab review shows CBC WBC of 5.6, hemoglobin 11.2, blood count of 111, sodium 138, potassium 3.9, BUN 5025/creatinine of 0.93 and blood glucose of 134 Review of Systems REVIEW OF SYSTEMS: CONSTITUTIONAL: No fever, no malaise, no fatigue. HEENT: No recent visual problems or hearing problems. Denied any sore throat. CARDIOVASCULAR: No chest pain, orthopnea, PND, no palpitations, no syncope. PULMONARY: No shortness of breath, no cough, no hemoptysis. GASTROINTESTINAL: No diarrhea, no nausea, no vomiting, no abdominal pain. NEUROLOGICAL: No headaches, no weakness, no numbness. HEMATOLOGICAL: Denies any bleeding or petechiae. GENITOURINARY: Denies any burning micturition, frequency, or urgency. MUSCULOSKELETAL/RHEUMATOLOGICAL: Denies any joint pain, swelling, or any muscle pain. ENDOCRINE: Denies any polyuria or polydipsia. The rest of the 14-point review of systems is negative. Past Medical History Past Medical History: Atrial Fibrillation, Heart Failure, Eye Disorder, Hypertension, Osteoarthritis (OA), Pneumonia, Thyroid Disorder Additional Past Medical History / Comment(s): History of Marfan syndrome with previous aortic valve replacement and repair of an ascending and descending aortic aneurysm, hypothyroidism, history of right eye blindness along with a right retinal eye vein occlusion, scoliosis of the spine. History of Any Multi-Drug Resistant Organisms: None Reported Past Surgical History: Cardiac Valve Replacement, Heart Catheterization, Hysterectomy, Orthopedic Surgery Additional Past Surgical History / Comment(s): Aortic valve replacement with placement of a mechanical valve, and upper aortic aneurysm repair 40 yrs ago at [facility], descending aortic repair [facility], bilateral cataract removal with lens, R knee ACL repair. Past Anesthesia/Blood Transfusion Reactions: No Reported Reaction Additional Past Anesthesia/Blood Transfusion Reaction / Comment(s): Pt. believes she has received blood in the past without reaction. Past Psychological History: No Psychological Hx Reported Additional Psychological History / Comment(s): Pt lives at home and her son, daughter in law and grandchild live with her. She uses a cane/walker to ambulate. She drives. She is independent. Smoking Status: Never smoker Past Alcohol Use History: Occasional Past Drug Use History: None Reported - Past Family History Father Family Medical History: Unable to Obtain Additional Family Medical History / Comment(s): Father is . Pt unable to give history-becomes very tearful speaking of parents. Mother Family Medical History: Unable to Obtain Additional Family Medical History / Comment(s): Mother is . Medications and Allergies Home Medications Medication Instructions Recorded Confirmed Type Metoprolol Succinate [Toprol XL] 100 mg PO DAILY 12/01/15 04/11/22 History Levothyroxine Sodium [Synthroid] 150 mcg PO DAILY 12/02/15 04/11/22 History Losartan Potassium 100 mg PO DAILY 12/02/15 04/11/22 History Potassium Chloride [Klor-Con 20] 10 meq PO HS 12/02/15 04/11/22 History Warfarin [Coumadin] 5 mg PO HS 12/02/15 04/11/22 History Furosemide [Lasix] 40 mg PO BID 12/13/17 04/11/22 History Allergies Allergy/AdvReac Type Severity Reaction Status Date / Time No Known Allergies Allergy Verified 04/11/22 15:02 Physical Exam Vitals: Vital Signs Temp Pulse Pulse Resp BP BP Pulse Ox 04/11/22 17:29 97.6 F 95 19 139/83 95 04/11/22 16:00 68 18 131/80 93 L 04/11/22 15:44 70 18 126/74 95 04/11/22 13:42 98.4 F 46 L 18 128/50 94 L Intake and Output 04/11/22 04/11/22 04/11/22 06:59 14:59 22:59 Other: # Voids 1 Weight 138.346 kg 136.5 kg PHYSICAL EXAMINATION: GENERAL: The patient is alert and oriented x3, not in any acute distress. Well developed, well nourished. HEENT: Pupils are round and equally reacting to light. EOMI. No scleral icterus. No conjunctival pallor. Normocephalic, atraumatic. No pharyngeal erythema. No thyromegaly. CARDIOVASCULAR: S1 and S2 present. No murmurs, rubs, or gallops. PULMONARY: Chest is clear to auscultation, no wheezing or crackles. ABDOMEN: Soft, nontender, nondistended, normoactive bowel sounds. No palpable o rganomegaly. MUSCULOSKELETAL: No joint swelling or deformity. EXTREMITIES: No cyanosis, clubbing, or pedal edema. NEUROLOGICAL: Gross neurological examination did not reveal any focal deficits. SKIN: No rashes. Results CBC & Chem 7: 04/11/22 14:16 04/11/22 14:16 Labs: Abnormal Lab Results - Last 24 Hours (Table) 04/11/22 04/11/22 04/11/22 Range/Units 14:16 14:16 14:16 Hgb 11.2 L (11.4-16.0) gm/dL Plt Count 111 L (150-450) k/uL Lymphocytes # 0.6 L (1.0-4.8) k/uL PT 25.8 H (9.0-12.0) sec INR 2.6 H (<1.2) D-Dimer 0.94 H (<0.60) mg/L FEU Carbon Dioxide 37 H (22-30) mmol/L BUN 25 H (7-17) mg/dL Glucose 134 H (74-99) mg/dL Thrombosis Risk Factor Assmnt - Choose All That Apply Any of the Below Risk Factors Present?: Yes Each Factor Represents 1 point: Obesity (BMI >25), Swollen legs (current) Other Risk Factors: No Other congenital or acquired thrombophilia - If yes, enter type in comment: No Thrombosis Risk Factor Assessment Total Risk Factor Score: 2 Thrombosis Risk Factor Assessment Level: Low Risk Assessment and Plan Assessment: 1. Acute exacerbation systolic CHF; patient received IV Lasix in ED; we will plan to continue and monitor strict KO's and daily weights; low-salt and fluid restricted diet; repeat 2-D echo - Consult cardiology; we appreciate recommendations 2. Mild renal injury; we will monitor renal function and electrolytes; monitor strict KO's; hold off on IV fluid hydration given acute CHF 3. Elevated d-dimer; d-dimer is slightly elevated at 0.94; patient is currently on Coumadin with therapeutic INR above 2.0; we'll hold off on CTA chest at this time with low suspicion for PE 4. Atrial fibrillation; persistent; patient is anticoagulated with Coumadin with INR being therapeutic; remains rate controlled on metoprolol 5. Hypertension; metoprolol 100 mg daily; losartan 100 mg daily; we will plan to hold losartan if renal function deteriorates 6. Hypothyroidism; levothyroxin 150 MCG daily DVT prophylaxis; SCDs/systemic anticoagulation CODE STATUS; full code
[2022-04-11] MEDS: FUROSEMIDE 10 MG/ML 4 ML VIAL IV SCH (20:58)
[2022-04-11] MEDS: WARFARIN 5 MG TAB PO SCH (20:58)
[2022-04-11] MEDS: POTASSIUM CHLORIDE ER 10 MEQ TAB.ER.PRT PO SCH (20:58)
[2022-04-12] MEDS: FUROSEMIDE 10 MG/ML 4 ML VIAL IV SCH ×3 (05:12→20:31)
[2022-04-12] MEDS: LEVOTHYROXINE 75 MCG TAB PO SCH (06:37)
[2022-04-12 07:53] LABS: INR 2.5 (<1.2); Prothrombin Time 24.9 sec (9.0-12.0)
[2022-04-12] MEDS ORDERED: LOSARTAN 50 MG TAB PO SCH (09:00)
[2022-04-12] MEDS: METOPROLOL SUCCINATE (ER) 100 MG TAB.ER.24H PO SCH (09:23)
--- NOTE | 2022-04-12 14:59 | P.PN ---
Subjective Progress Note Date: 04/12/22 03/10/[id number] female admitted with acute exacerbation CHF. Diuresing well on Lasix IV push, shortness of breath improved. Denies chest pain, palpitations. Blood pressures soft this morning. Telemetry reporting A. fib with PVCs, bigeminy. Objective - Vital Signs Vital signs: Vital Signs Temp 98.0 F 04/12/22 12:00 Pulse 76 04/12/22 12:00 Resp 20 04/12/22 12:00 BP 89/64 04/12/22 12:00 Pulse Ox 93 L 04/12/22 12:00 FiO2 Intake & Output 04/11/22 04/12/22 04/12/22 18:59 06:59 18:59 Intake Total 658 Balance 658 Weight 136.5 kg 135.4 kg Intake: Oral 658 Other: Voiding Method Toilet # Voids 1 1 - Exam GENERAL: This is a -year-old in no apparent distress , sitting up in chair Pleasant and cooperative. HEENT: Head is atraumatic, normocephalic. Pupils are equal, round, and reactive to light. Sclerae anicteric. Conjunctivae are clear. Mucus membranes of the mouth are moist. Neck is supple. RESPIRATORY: diminished breath sounds, bibasilar crackles CARDIOVASCULAR: Irregular rate and rhythm. S1 and S2 noted. Positive click. No systolic or diastolic murmur auscultated. No JVD noted. No S3 or S4 noted. GASTROINTESTINAL: No distention noted. Abdomen soft and round. Normal active bowel sounds auscultated x 4 quadrants. No pain or tenderness noted upon palpation. INTEGUMENTARY: No cyanosis. No jaundice. No rashes noted. No cellulitis noted. EXTREMITIES: 2+ peripheral pulses. peripheral edema. NEUROLOGIC: Cranial nerves II-XII intact. PSYCHIATRIC: Awake, alert, and oriented X 3. Appropriate affect. Intact judgement and insight. - Labs CBC & Chem 7: 04/11/22 14:16 04/11/22 14:16 Labs: Abnormal Lab Results - Last 24 Hours (Table) 04/11/22 04/11/22 04/11/22 Range/Units 14:16 14:16 14:16 Hgb 11.2 L (11.4-16.0) gm/dL Plt Count 111 L (150-450) k/uL Lymphocytes # 0.6 L (1.0-4.8) k/uL PT 25.8 H (9.0-12.0) sec INR 2.6 H (<1.2) D-Dimer 0.94 H (<0.60) mg/L FEU Carbon Dioxide 37 H (22-30) mmol/L BUN 25 H (7-17) mg/dL Glucose 134 H (74-99) mg/dL 04/12/22 Range/Units 06:36 Hgb (11.4-16.0) gm/dL Plt Count (150-450) k/uL Lymphocytes # (1.0-4.8) k/uL PT 24.9 H (9.0-12.0) sec INR 2.5 H (<1.2) D-Dimer (<0.60) mg/L FEU Carbon Dioxide (22-30) mmol/L BUN (7-17) mg/dL Glucose (74-99) mg/dL Assessment and Plan Assessment: Acute CHF exacerbation, systolic dysfunction Atrial fibrillation, chronic Marfan syndrome Elevated d-dimer; d-dimer is slightly elevated at 0.94; patient is currently on Coumadin with therapeutic INR above 2.0; we'll hold off on CTA chest at this time with low suspicion for PE Aortic valve replacement, mechanical valve on long-term anticoagulation Ascending and descending aortic aneurysm repairs Hypertension Hyperlipidemia Hypothyroidism Plan: Continue current medication regime ,monitoring and symptomatic treatment. Lytes pending. Maintain diuretics; strict I&O ordered, and daily weights. Cardiology consult in place with recommendations pending. Daily INR. The impression and plan of care has been dictated as directed. : I performed a history and examination of this patient, discussed the same with the dictator. I agree with the dictator's note ,documented as a scribe. Any additional findings or plans will be noted.
[2022-04-12 16:19] LABS: Magnesium 1.9 mg/dL (1.6-2.3); Potassium 4.5 mmol/L (3.5-5.1)
--- NOTE | 2022-04-12 18:24 | CONS ---
CONSULTATION HISTORY OF PRESENT ILLNESS: Jeanne Allison is a 66-year-old lady with a known history of mechanical aortic valve replacement for probable bicuspid valve and also had repair of ascending aorta more than 25-30 years ago, came into the hospital with increasing weight gain, shortness of breath. She has been placed on IV Lasix and diuresed, lost weight, breathes better. Last echo revealed ejection fraction in the 35% to 40% range. She is resting comfortably without symptoms. PAST MEDICAL HISTORY: 1. Chronic diastolic heart failure. 2. Chronic atrial fibrillation. 3. History of aortic valve replacement, with mechanical valve and repair of ascending aorta more than 25 years ago. 4. Patient is status post cataract surgery. ALLERGIES: None. MEDICATIONS: Metoprolol succinate, Synthroid, losartan, Lasix and potassium supplements and Coumadin. PHYSICAL EXAMINATION: On examination, blood pressure is 112/70, pulse rate about 70 irregular. HEENT unremarkable. Fundus was not examined by me. NECK is supple. No JVD. I do not hear a carotid bruit. HEART exam reveals S1, S2 with prosthetic valve clicks. Irregular rhythm, short systolic murmur. LUNGS reveal improved air entry. ABDOMEN: Soft. Lower EXTREMITIES reveal significant bilateral moderate edema. Diminished pulses. CENTRAL NERVOUS SYSTEM is normal. IMPRESSION: 1. Exacerbation of probably more of a diastolic heart failure, more right-sided. 2. History of mechanical aortic valve replacement in the past with repair of ascending aorta. 3. Chronic atrial fibrillation. RECOMMENDATIONS: I am recommending that we will continue diuresis cautiously and check a BMP in the morning and based on clinical course, we will make further recommendations. Patient's BNP is not much elevated, mostly there is edema of lower extremities. I think we will diurese her and if she shows improvement, consider discharge. She has probably some chronic lower extremity edema as well. Thank you very much for the consult. MMODL / IJN: [id number] /
[2022-04-12] MEDS: POTASSIUM CHLORIDE ER 10 MEQ TAB.ER.PRT PO SCH (20:31)
[2022-04-12] MEDS: WARFARIN 5 MG TAB PO SCH (20:31)
[2022-04-13] MEDS: FUROSEMIDE 10 MG/ML 4 ML VIAL IV SCH (04:47)
[2022-04-13] MEDS: LEVOTHYROXINE 75 MCG TAB PO SCH (06:16)
[2022-04-13] MEDS: METOPROLOL SUCCINATE (ER) 100 MG TAB.ER.24H PO SCH (08:08)
[2022-04-13 08:13] LABS: Calcium 8.2 mg/dL (8.4-10.2); Potassium 4.1 mmol/L (3.5-5.1)
[2022-04-13 08:18] LABS: INR 3.1 (<1.2); Prothrombin Time 30.4 sec (9.0-12.0)
[2022-04-13 08:34] LABS: Basophils % (A) 1 %; Eosinophils # (A) 0.1 k/uL (0-0.7); Eosinophils % (A) 2 %; HCT 37.5 % (34.0-46.0); HGB 11.7 gm/dL (11.4-16.0); Hypochromasia Marked; Lymphocytes # (A) 0.6 k/uL (1.0-4.8); Lymphocytes % (A) 11 %; MCH 28.7 pg (25.0-35.0); MCHC 31.3 g/dL (31.0-37.0); MCV 91.8 fL (80.0-100.0); Mean Platelet Volume 9.1; Monocytes # (A) 0.4 k/uL (0-1.0); Monocytes % (A) 8 %; Neutrophils # (A) 4.3 k/uL (1.3-7.7); Neutrophils % (A) 78 %; Platelet Count 123 k/uL (150-450); RBC 4.08 m/uL (3.80-5.40); RDW 15.5 % (11.5-15.5); WBC 5.6 k/uL (3.8-10.6)
[2022-04-13] MEDS: POTASSIUM CHLORIDE ER 10 MEQ TAB.ER.PRT PO SCH ×2 (10:52→20:20)
[2022-04-13] MEDS: FUROSEMIDE 100 MG in SODIUM CHLORIDE 0.9% 90 ML IV SCH ×2 (10:53→20:19)
--- NOTE | 2022-04-13 14:02 | PN ---
PROGRESS NOTE Mrs. Allison is in atrial fibrillation, rate controlled. The edema is not improved. I will place her on Lasix drip and check her potassium and give additional supplements. Vital signs stable. JVD 1 cm. No carotid bruit. S1, S2 with a regular rhythm noted. Prosthetic valve clicks audible. Lungs reveal bilateral decent air entry. Abdomen is diminished. Lower extremity edema persists. We will try IV Lasix drip today with potassium supplements and check electrolytes. MMODL / IJN: [id number] /
--- NOTE | 2022-04-13 18:18 | P.PN ---
Subjective Progress Note Date: 04/13/22 03/10/[id number] female admitted with acute exacerbation CHF. Diuresing well on Lasix IV push, shortness of breath improved. Denies chest pain, palpitations. Blood pressures soft this morning. Telemetry reporting A. fib with PVCs, bigeminy. 04/13/2022 telemetry reporting A. fib with heart rates ranging from 40s to 100s, bigeminy, couplets. Edema persists on Lasix IV push. Evaluated by cardiology and Lasix drip initiated. Objective - Vital Signs Vital signs: Vital Signs Temp 97.6 F 04/13/22 16:18 Pulse 68 04/13/22 16:18 Resp 20 04/13/22 16:18 BP 130/82 04/13/22 16:18 Pulse Ox 96 04/13/22 16:18 FiO2 Intake & Output 04/12/22 04/13/22 04/13/22 18:59 06:59 18:59 Intake Total 894 240 40 Output Total 723 061 3244 Balance 694 -715 -1085 Weight 135.9 kg Intake: Intake, IV Titration 40 Amount Furosemide 100 mg In 40 Sodium Chloride 0.9% 90 ml @ 10 MG/HR 10 mls/hr IV .Q10H MAJO Rx#: [id number] Oral 894 240 Output: Urine 473 137 9851 Other: Voiding Method Toilet - Exam GENERAL: This is a -year-old in no apparent distress , sitting up in chair Pleasant and cooperative. HEENT: Head is atraumatic, normocephalic. Pupils are equal, round, and reactive to light. Sclerae anicteric. Conjunctivae are clear. Mucus membranes of the mouth are moist. Neck is supple. RESPIRATORY: diminished breath sounds, decreased bibasilar crackles CARDIOVASCULAR: Irregular rate and rhythm. S1 and S2 noted. Positive click. No systolic or diastolic murmur auscultated. JVD noted. No S3 or S4 noted. GASTROINTESTINAL: No distention noted. Abdomen soft and round. Normal active bowel sounds auscultated x 4 quadrants. No pain or tenderness noted upon palpation. INTEGUMENTARY: No cyanosis. No jaundice. No rashes noted. No cellulitis noted. EXTREMITIES: 2+ peripheral pulses. Positive peripheral edema. NEUROLOGIC: Cranial nerves II-XII intact. PSYCHIATRIC: Awake, alert, and oriented X 3. Appropriate affect. Intact judgement and insight. - Labs CBC & Chem 7: 04/13/22 07:25 04/13/22 07:25 Labs: Abnormal Lab Results - Last 24 Hours (Table) 04/13/22 04/13/22 04/13/22 Range/Units 07:25 07:25 07:25 Plt Count 123 L (150-450) k/uL Lymphocytes # 0.6 L (1.0-4.8) k/uL PT 30.4 H (9.0-12.0) sec INR 3.1 H (<1.2) Chloride 95 L (98-107) mmol/L Carbon Dioxide 36 H (22-30) mmol/L BUN 24 H (7-17) mg/dL Glucose 110 H (74-99) mg/dL Calcium 8.2 L (8.4-10.2) mg/dL Assessment and Plan Assessment: Acute CHF exacerbation, systolic dysfunction Atrial fibrillation, chronic Marfan syndrome Elevated d-dimer; d-dimer is slightly elevated at 0.94; patient is currently on Coumadin with therapeutic INR above 2.0; we'll hold off on CTA chest at this time with low suspicion for PE Aortic valve replacement, mechanical valve on long-term anticoagulation Ascending and descending aortic aneurysm repairs Hypertension Hyperlipidemia Hypothyroidism Plan: Continue current medication regime ,monitoring and symptomatic treatment. Diuretics as per cardiology, now on Lasix drip. Close monitoring of electrolytes with repeat labs ordered for a.m. Coumadin per pharmacy dosing. The impression and plan of care has been dictated as directed. : I performed a history and examination of this patient, discussed the same with the dictator. I agree with the dictator's note ,documented as a scribe. Any additional findings or plans will be noted.
[2022-04-13] MEDS: WARFARIN 5 MG TAB PO SCH (20:20)
[2022-04-13] MEDS ORDERED: LOSARTAN 25 MG TAB PO SCH (21:00)
[2022-04-14] MEDS: FUROSEMIDE 100 MG in SODIUM CHLORIDE 0.9% 90 ML IV SCH (03:41)
[2022-04-14] MEDS: LEVOTHYROXINE 75 MCG TAB PO SCH (06:17)
[2022-04-14 08:05] LABS: INR 2.6 (<1.2); Prothrombin Time 25.6 sec (9.0-12.0)
[2022-04-14 08:07] LABS: Calcium 8.6 mg/dL (8.4-10.2); Magnesium 2.1 mg/dL (1.6-2.3); Potassium 4.1 mmol/L (3.5-5.1)
[2022-04-14] MEDS: METOPROLOL SUCCINATE (ER) 100 MG TAB.ER.24H PO SCH (09:31)
[2022-04-14] MEDS: POTASSIUM CHLORIDE ER 10 MEQ TAB.ER.PRT PO SCH (09:31)
[2022-04-14 09:49] VITALS: BP 138/73; PULSE 73; RESP 20; TEMP 98.2
[2022-04-14] MEDS ORDERED: FUROSEMIDE 40 MG TAB PO SCH (16:00)
--- NOTE | 2022-04-14 20:06 | PN ---
PROGRESS NOTE The patient's breathing is much better. Her edema has decreased. She is ambulating without symptoms. She has lost nearly six pounds. I will discontinue the IV Lasix, place her on oral Lasix, increase activity and plan for discharge later on today. Vitals are stable. JVD 1 cm. No carotid bruit. S1, S2 with prosthetic valve clicks audible. Lungs reveal diminished air entry. Abdomen is soft. Lower extremities reveal improved edema. Central nervous system is grossly within normal limits. MMODL / IJN: [id number] /
[2022-04-15] MEDS ORDERED: FUROSEMIDE 20 MG TAB PO SCH (09:00)
--- NOTE | 2022-04-15 13:57 | P.DS ---
Providers Date of admission: 04/11/22 14:31 Expected date of discharge: 04/14/22 Attending physician: Dillon Scott Consults: 04/11/22 15:01 Consult Physician Routine Consulting Provider: Nitish Walton Consult Reason/Comments: CHF Do you want consulting provider notified?: Yes Primary care physician: Dillon Scott Hospital Course: Final Diagnoses: Acute CHF exacerbation, systolic dysfunction, status post Lasix drip Atrial fibrillation, chronic Marfan syndrome Elevated d-dimer; d-dimer is slightly elevated at 0.94; patient is currently on Coumadin with therapeutic INR above 2.0; we'll hold off on CTA chest at this time with low suspicion for PE Aortic valve replacement, mechanical valve on long-term anticoagulation Ascending and descending aortic aneurysm repairs Hypertension Hyperlipidemia Hypothyroidism Hospital course:03/10/[id number] female admitted with acute exacerbation CHF. Diuresing well on Lasix IV push, shortness of breath improved. Denies chest pain, palpitations. Blood pressures soft this morning. Telemetry reporting A. fib with PVCs, bigeminy. 04/13/2022 telemetry reporting A. fib with heart rates ranging from 40s to 100s, bigeminy, couplets. Edema persists on Lasix IV push. Evaluated by cardiology and Lasix drip initiated. Significant clinical improvement. Lasix drip discontinued, cleared by cardiology for discharge. Patient will be discharged home in a stable condition with guarded prognosis pending final DC recommendations/diuretics as per cardiology. The impression and plan of care has been dictated as directed. : I performed a history and examination of this patient, discussed the same with the dictator. I agree with the dictator's note ,documented as a scribe. Any additional findings or plans will be noted. Patient Condition at Discharge: Stable Plan - Discharge Summary Discharge Rx Participant: No New Discharge Prescriptions: New Furosemide [Lasix] 40 mg PO 1600 #30 tab Losartan [Cozaar] 25 mg PO HS #30 tab Potassium Chloride ER [K-Dur 10] 10 meq PO BID #60 tab Furosemide [Lasix] 60 mg PO DAILY #90 tab Continue Metoprolol Succinate [Toprol XL] 100 mg PO DAILY Levothyroxine Sodium [Synthroid] 150 mcg PO DAILY Warfarin [Coumadin] 5 mg PO HS Discontinued Potassium Chloride [Klor-Con 20] 10 meq PO HS Losartan Potassium 100 mg PO DAILY Furosemide [Lasix] 40 mg PO BID Discharge Medication List Metoprolol Succinate [Toprol XL] 100 mg PO DAILY 12/01/15 [History] Levothyroxine Sodium [Synthroid] 150 mcg PO DAILY 12/02/15 [History] Warfarin [Coumadin] 5 mg PO HS 12/02/15 [History] Furosemide [Lasix] 40 mg PO 1600 #30 tab 04/14/22 [Rx] Furosemide [Lasix] 60 mg PO DAILY #90 tab 04/14/22 [Rx] Losartan [Cozaar] 25 mg PO HS #30 tab 04/14/22 [Rx] Potassium Chloride ER [K-Dur 10] 10 meq PO BID #60 tab 04/14/22 [Rx] Follow up Appointment(s)/Referral(s): Nitish Walton MD [STAFF PHYSICIAN] - 2 Weeks (please call the office for appointment) Dillon Scott DO [Primary Care Provider] - 04/20/22 2:50 pm Ambulatory/Diagnostic Orders: Basic Metabolic Panel [LAB.AMB] Time Frame: 04/16/22, Location: None Selected Patient Instructions/Handouts: Heart Failure (DC), Leg Edema (ED) Discharge Disposition: HOME SELF-CARE
== END 2022-04-14 13:00 | disposition home or self-care (01) | DRG 291 ==
LOC: EC 13:39 → 3SCARD 14:31
PROVIDERS: ADMIT Family Medicine; ATTEND Family Medicine
DX: I11.0 Hypertensive heart disease with heart failure (principal); I50.23 Acute on chronic systolic (congestive) heart failure; Q87.40 Marfan syndrome, unspecified; I48.19 Other persistent atrial fibrillation; Z79.01 Long term (current) use of anticoagulants; Z20.822 Contact with and (suspected) exposure to COVID-19; Z28.310 Unvaccinated for COVID-19; D64.9 Anemia, unspecified; I49.3 Ventricular premature depolarization; E03.9 Hypothyroidism, unspecified; E78.5 Hyperlipidemia, unspecified; M41.9 Scoliosis, unspecified; H54.61 Unqualified visual loss, right eye, normal vision left eye; M19.90 Unspecified osteoarthritis, unspecified site; Z79.890 Hormone replacement therapy; Z79.899 Other long term (current) drug therapy; Z95.2 Presence of prosthetic heart valve
CPT/HCPCS: 36415; 71046; 80048; 80053; 83735; 83880; 84132; 84484; 85025; 85379; 85610; 87502; 87635; 93005; 96374; 99285

== ENCOUNTER 2022-10-18 14:33 | Inpatient (IN) | payer MEDICARE ==
[2022-10-18 15:01] LABS: Anisocytosis Slight; Basophils % (A) 0 %; Eosinophils # (A) 0.1 k/uL (0-0.7); Eosinophils % (A) 1 %; HCT 23.8 % (34.0-46.0); HGB 7.4 gm/dL (11.4-16.0); Hypochromasia Moderate; Lymphocytes # (A) 0.6 k/uL (1.0-4.8); Lymphocytes % (A) 9 %; MCH 26.8 pg (25.0-35.0); MCV 86.5 fL (80.0-100.0); Mean Platelet Volume 8.5; Monocytes # (A) 0.7 k/uL (0-1.0); Monocytes % (A) 10 %; Neutrophils # (A) 5.7 k/uL (1.3-7.7); Neutrophils % (A) 79 %; Platelet Count 177 k/uL (150-450); RBC 2.75 m/uL (3.80-5.40); WBC 7.3 k/uL (3.8-10.6)
--- NOTE | 2022-10-18 15:04 | XR ---
EXAMINATION TYPE: XR chest 2V DATE OF EXAM: 10/18/2022 2:58 PM COMPARISON: Chest radiographs from 04/11/2022 TECHNIQUE: XR chest 2V Frontal and lateral views of the chest. CLINICAL INDICATION:Female, 67 years old with history of difficulty breathing; FINDINGS: Lungs/Pleura: Right medial lower lung consolidation. Prominent interstitial lung markings involving t he left lower lung. Similar elevation the right hemidiaphragm. No pleural effusion. Heart/mediastinum: Cardiomediastinal silhouette is enlarged and stable. Atherosclerotic calcificatio ns are seen in the aorta. Aortic valvular prosthesis. Musculoskeletal: No acute osseous pathology. Midline sternotomy wires are noted and stable. IMPRESSION: Chronic right basilar consolidation/atelectasis and elevation of the right hemidiaphragm with chronic mild pulmonary congestion and persistent cardiomegaly. Overall unchanged from prior examination.
[2022-10-18 15:13] LABS: Albumin 3.4 g/dL (3.5-5.0); Total Bilirubin 0.9 mg/dL (0.2-1.3); Total Protein 6.3 g/dL (6.3-8.2)
[2022-10-18 15:15] LABS: Calcium 7.9 mg/dL (8.4-10.2); Magnesium 2.6 mg/dL (1.6-2.3)
[2022-10-18 15:18] LABS: Partial Thromboplastin Time 58.2 sec (22.0-30.0)
[2022-10-18 15:25] LABS: INR >10.0 (<1.2); Prothrombin Time >130.0 sec (9.0-12.0)
[2022-10-18] MEDS ORDERED: SODIUM CHLORIDE 0.9% 500 ML 500 ML IV STA (15:45)
--- NOTE | 2022-10-18 16:10 | ED ---
General Adult HPI - General Source: patient, EMS, RN notes reviewed, old records reviewed Mode of arrival: EMS Limitations: no limitations <Adriano Douglas - Last Filed: 10/18/22 15:09> <Santos Brandt - Last Filed: 10/19/22 00:51> - General Chief complaint: Shortness of Breath Stated complaint: KATIE Time Seen by Provider: 10/18/22 14:34 - History of Present Illness Initial comments: This a 67-year-old female presents emergency Department with a past medical history significant for congestive heart failure valve replacement Marfan syndrome aortic valve repair 45 years ago and has a descending aortic aneurysm that they are watching. Patient comes in today and is complaining of difficulty breathing gets worse over the week. Patient states she also noticed increased swelling in her legs. Patient denies chest pain palpitations or any chest pressure. Patient states she is on Coumadin. Patient denies any fever chills or cough. Patient states she did try taking some Ativan but that didn't work and she also tried a breathing treatment that didn't work. Patient states she spoke with her vegetable farmworker and they wanted her to come to the emergency department and be evaluated (Adriano Douglas) - Related Data Home Medications Medication Instructions Recorded Confirmed Metoprolol Succinate [Toprol XL] 100 mg PO DAILY 12/01/15 10/18/22 Levothyroxine Sodium [Synthroid] 150 mcg PO DAILY 12/02/15 10/18/22 Warfarin [Coumadin] 5 mg PO HS 12/02/15 10/18/22 Fluticasone Propion/Salmeterol 1 puff INHALATION DIRECTED 10/18/22 10/18/22 [Advair 250-50 Diskus] Furosemide [Lasix] 40 mg PO BID@0900,1600 10/18/22 10/18/22 Losartan Potassium 100 mg PO HS 10/18/22 10/18/22 Potassium Chloride ER [K-Dur 20] 10 meq PO HS 10/18/22 10/18/22 Allergies Allergy/AdvReac Type Severity Reaction Status Date / Time citalopram [From Celexa] AdvReac Nausea & Verified 10/18/22 18:22 Vomiting Review of Systems ROS Other: All systems not noted in ROS Statement are negative. <Adriano Douglas - Last Filed: 10/18/22 15:09> ROS Other: All systems not noted in ROS Statement are negative. <Santos Brandt - Last Filed: 10/19/22 00:51> ROS Statement: Those systems with pertinent positive or pertinent negative responses have been documented in the HPI. Past Medical History Past Medical History: Atrial Fibrillation, Heart Failure, Eye Disorder, H ypertension, Osteoarthritis (OA), Pneumonia, Thyroid Disorder Additional Past Medical History / Comment(s): History of Marfan syndrome with previous aortic valve replacement and repair of an ascending and descending aortic aneurysm, hypothyroidism, history of right eye blindness along with a right retinal eye vein occlusion, scoliosis of the spine. History of Any Multi-Drug Resistant Organisms: None Reported Past Surgical History: Cardiac Valve Replacement, Heart Catheterization, Hysterectomy, Orthopedic Surgery Additional Past Surgical History / Comment(s): Aortic valve replacement with placement of a mechanical valve, and upper aortic aneurysm repair 40 yrs ago at [facility], descending aortic repair [facility], bilateral cataract removal with lens, R knee ACL repair. Past Anesthesia/Blood Transfusion Reactions: No Reported Reaction Additional Past Anesthesia/Blood Transfusion Reaction / Comment(s): Pt. believes she has received blood in the past without reaction. Past Psychological History: No Psychological Hx Reported Smoking Status: Never smoker Past Alcohol Use History: Occasional Past Drug Use History: None Reported - Past Family History Father Family Medical History: Unable to Obtain Additional Family Medical History / Comment(s): Father is . Pt unable to give history-becomes very tearful speaking of parents. Mother Family Medical History: Unable to Obtain Additional Family Medical History / Comment(s): Mother is . <Adriano Douglas - Last Filed: 10/18/22 15:09> General Exam Limitations: no limitations <Adriano Douglas - Last Filed: 10/18/22 15:09> Limitations: no limitations General appearance: in distress (In minor distress with SOB), obese Head exam: Present: atraumatic, normocephalic, normal inspection Eye exam: Present: normal appearance, PERRL Pupils: Present: normal accommodation ENT exam: Present: normal exam, normal oropharynx, mucous membranes moist Neck exam: Present: normal inspection, full ROM Respiratory exam: Present: decreased breath sounds Cardiovascular Exam: Present: regular rate, normal rhythm, normal heart sounds GI/Abdominal exam: Present: soft, normal bowel sounds Extremities exam: Present: normal inspection, full ROM, pedal edema Back exam: Present: normal inspection, full ROM Neurological exam: Present: alert, oriented X3, CN II-XII intact Psychiatric exam: Present: normal affect, normal mood Skin exam: Present: warm, dry <Santos Brandt - Last Filed: 10/19/22 00:51> - General Exam Comments Initial Comments: GENERAL: Patient is well-developed and well-nourished. Patient is nontoxic and well-hydrated and is in mild distress. ENT: Neck is soft and supple. No significant lymphadenopathy is noted. Oropharynx is clear. Moist mucous membranes. Neck has full range of motion without eliciting any pain. EYES: The sclera were anicteric and conjunctiva were pink and moist. Extraocular movements were intact and pupils were equal round and reactive to light. Eyelids were unremarkable. PULMONARY: Diminished breath sounds right base CARDIOVASCULAR: There is a regular rate and rhythm without any murmurs gallops or rubs. ABDOMEN: Soft and nontender with normal bowel sounds. SKIN: Skin is clear with no lesions or rashes and otherwise unremarkable. NEUROLOGIC: Patient is alert and oriented x3. Cranial nerves II through XII are grossly intact. Motor and sensory are also intact. Normal speech, volume and content. Symmetrical smile. MUSCULOSKELETAL: Normal extremities with adequate strength and full range of motion. 2+ edema LYMPHATICS: No significant lymphadenopathy is noted PSYCHIATRIC: Normal psychiatric evaluation. (Adriano Douglas) Course Vital Signs 10/18/22 10/18/22 10/18/22 14:34 15:15 15:35 Temperature 97.7 F Pulse Rate 75 67 Respiratory 30 H 24 Rate Blood Pressure 91/59 74/51 O2 Sat by Pulse 98 100 Oximetry Fraction of 45 Inspired Oxygen (FIO2) 10/18/22 10/18/22 10/18/22 17:04 18:09 19:00 Temperature 96.9 F L Pulse Rate 73 70 64 Respiratory 24 24 24 Rate Blood Pressure 87/55 101/64 79/35 O2 Sat by Pulse 99 97 100 Oximetry Fraction of Inspired Oxygen (FIO2) 10/18/22 10/18/22 10/18/22 19:49 19:55 21:09 Temperature Pulse Rate 65 Respiratory 17 Rate Blood Pressure 76/43 O2 Sat by Pulse 96 Oximetry Fraction of 45 45 Inspired Oxygen (FIO2) 10/18/22 10/18/22 10/18/22 21:14 21:38 22:12 Temperature Pulse Rate 63 59 L 57 L Respiratory 9 L 15 10 L Rate Blood Pressure 75/36 63/37 77/42 O2 Sat by Pulse 93 L 98 97 Oximetry Fraction of Inspired Oxygen (FIO2) EKG Findings - EKG Comments: EKG Findings:: An EKG was obtained and was interpreted by myself and showed a rate of 72, QRS duration 97, QTC of 397. This EKG showed nature fibrillation however there was significant artifact secondary to the patient movement. There was no ST segment elevation or depression noted. <Santos Brandt - Last Filed: 10/19/22 00:51> Medical Decision Making - Lab Data Result diagrams: 10/18/22 14:42 <Adriano Douglas - Last Filed: 10/18/22 15:09> - Lab Data Result diagrams: 10/18/22 19:08 10/18/22 14:42 <Santos Brandt - Last Filed: 10/19/22 00:51> - Medical Decision Making EKG was interpreted by myself. EKG shows atrial fibrillation 72 bpm QRS is 97 QT interval 372 QTC is 397 per patient's EKG shows no ST segment elevation or depression. EKG is of poor quality. Was pt. sent in by a medical professional or institution (TATIANNA Whitfield, ASSOCIATE PROPERTY MANAGER, urgent care, hospital, or halfway...) When possible be specific @ -No Did you speak to anyone other than the patient for history (EMS, parent, family, police, friend...)? What history was obtained from this source @ -EMS gave extensive history since the patient so short of breath Did you review nursing and triage notes (agree or disagree)? Why? @ -I reviewed and agree with nursing and triage notes Were old charts reviewed (outside hosp., previous admission, EMS record, old EKG, old radiological studies, urgent care reports/EKG's, halfway records)? Report findings @ -Due to the patient's old x-rays as well as old lab work Differential Diagnosis (chest pain, altered mental status, abdominal pain women, abdominal pain men, vaginal bleeding, weakness, fever, dyspnea, syncope, headache, dizziness, GI bleed, back pain, seizure, CVA, palpatations, mental health)? @ -Differential Dyspnea: Coronary syndrome, arrhythmia, tamponade, asthma, COPD, pulmonary embolism, pneumonia, pneumothorax, pulmonary effusion, anaphylaxis, diabetic ketoacidosis, flailed chest, pulmonary contusion, diaphragmatic rupture, anemia, neuromuscular, this is not meant to be an all-inclusive list. EKG interpreted by me (3pts min.). @ -As above X-rays interpreted by me (1pt min.). @ -Chest x-ray is interpreted by myself shows an elevated right diaphragm and some consolidation of the right base which is CT interpreted by me (1pt min.). @ -None done U/S interpreted by me (1pt. min.). @ -None done What testing was considered but not performed or refused? (CT, X-rays, U/S, labs)? Why? @ -None What meds were considered but not given or refused? Why? @ -None Did you discuss the management of the patient with other professionals (professionals i.e. , PA, ASSOCIATE PROPERTY MANAGER, lab, RT, psych nurse, licensed master social worker, pipe cleaning machine operator, teacher, correctional officer, immigration case manager)? Give summary @ -No Was smoking cessation discussed for >3mins.? @ -No Was critical care preformed (if so, how long)? @ -No Were there social determinants of health that impacted care today? How? (Homelessness, low income, unemployed, alcoholism, drug addiction, transportation, low edu. Level, literacy, decrease access to med. care, custodial, rehab)? @ -No Was there de-escalation of care discussed even if they declined (Discuss DNR or withdrawal of care, Hospice)? DNR status @ -No What co-morbidities impacted this encounter? (DM, HTN, Smoking, COPD, CAD, Cancer, CVA, ARF, Chemo, Hep., AIDS, mental health diagnosis, sleep apnea, morbid obesity)? @ -None Was patient admitted / discharged? Hospital course, mention meds given and route, prescriptions, significant lab abnormalities, going to OR and other pertinent info. @ -Patient received a 500 bolus of fluid was also put on BiPAP. Patient's blood pressure remained low and at this point time the patient was signed out [facility] I assumed care of the patient from Dr. Douglas Was pt. sent in by a medical professional or institution (TATIANNA Whitfield, ASSOCIATE PROPERTY MANAGER, urgent care, hospital, or halfway...) When possible be specific @ -No Did you speak to anyone other than the patient for history (EMS, parent, family, police, friend...)? What history was obtained from this source @ -Yes, patient's niece Did you review nursing and triage notes (agree or disagree)? Why? @ -I reviewed and agree with nursing and triage notes Were old charts reviewed (outside hosp., previous admission, EMS record, old EKG, old radiological studies, urgent care reports/EKG's, halfway records)? Report findings @ -No old charts were reviewed Differential Diagnosis (chest pain, altered mental status, abdominal pain women, abdominal pain men, vaginal bleeding, weakness, fever, dyspnea, syncope, headache, dizziness, GI bleed, back pain, seizure, CVA, palpatations, mental health)? @ -Congestive heart failure exacerbation, pneumonia, ACS EKG interpreted by me (3pts min.). @ -As above X-rays interpreted by me (1pt min.). @ -Chest x-ray was obtained and was interpreted by myself showing no acute changes with chronic right basilar consolidation and atelectasis and elevation of the right hemidiaphragm with chronic mild pulmonary congestion and persistent cardiomegaly. CT interpreted by me (1pt min.). @ -None done U/S interpreted by me (1pt. min.). @ -None done What testing was considered but not performed or refused? (CT, X-rays, U/S, labs)? Why? @ -CTA of the chest, abdomen and pelvis to evaluate the patient for her previous dissections was considered however due to the patient's worsening kidne y function in the setting of no acute chest pain, this imaging was not performed at this time. What meds were considered but not given or refused? Why? @ -None Did you discuss the management of the patient with other professionals (professionals i.e. TATIANNA Whitfield, ASSOCIATE PROPERTY MANAGER, lab, RT, psych nurse, licensed master social worker, pipe cleaning machine operator, teacher, correctional officer, immigration case manager)? Give summary @ -Yes, admitting physician and early childhood worker Was smoking cessation discussed for >3mins.? @ -No Was critical care preformed (if so, how long)? @ -Yes, see above Were there social determinants of health that impacted care today? How? (Homelessness, low income, unemployed, alcoholism, drug addiction, transportation, low edu. Level, literacy, decrease access to med. care, custodial, rehab)? @ -No Was there de-escalation of care discussed even if they declined (Discuss DNR or withdrawal of care, Hospice)? DNR status @ -No What co-morbidities impacted this encounter? (DM, HTN, Smoking, COPD, CAD, Cancer, CVA, ARF, Chemo, Hep., AIDS, mental health diagnosis, sleep apnea, morbid obesity)? @ -Hypertension, congestive heart failure, Marfan syndrome Was patient admitted / discharged? Hospital course, mention meds given and route, prescriptions, significant lab abnormalities, going to OR and other pertinent info. @ -The patient was seen and evaluated initially by Dr. Douglas. I did assume care of the patient from him. I assumed care of the patient pending completion the laboratory workup as well as reevaluation. The patient was reevaluated multiple times in the emergency department and continued on BiPAP. Laboratory workup was consistent with congestive heart failure and she continued to deny any chest pain, lightheadedness or dizziness. The patient remained ANO 4 and awake and alert. The patient's blood pressure remained low and the patient denied of any signs of active bleeding. A repeat hemoglobin did show us level of 6.8 therefore the patient was given a unit of blood. The patient remained stable on BiPAP. Laboratory workup also demonstrated hypercarbia. The patient remained on BiPAP for this secondary to the CHF exacerbation and elevated CO2. Due to the patient's laboratory workup in the setting of BiPAP assisting her ventilations, the patient did require further workup and evaluation and admission. The patient's primary care physician was contacted and did accept the patient for admission. Cardiology was placed and consul. Due to the patient's persistent hypoglycemia in the setting of an elevated INR, the floor and stepdown unit refuse the patient. The patient did receive by mouth vitamin K for the elevated INR however did not have any signs of active bleeding therefore no further medications were given. The ICU was contacted and Dr. Rothman agree to accept the patient for admission. He did agree with holding Levothroid administration and did only request to large-bore IVs. The patient had a 18-gauge and 20 guage noted. The patient was told of this plan and was agreeable. The patient was admitted in stable condition. Undiagnosed new problem with uncertain prognosis? @ -No Drug Therapy requiring intensive monitoring for toxicity (Heparin, Nitro, Insulin, Cardizem)? @ -No Were any procedures done? @ -No Diagnosis/symptom? @ -Congestive heart failure exacerbation Acute, or Chronic, or Acute on Chronic? @ -Acute Uncomplicated (without systemic symptoms) or Complicated (systemic symptoms)? @ -Complicated Side effects of treatment? @ -No Exacerbation, Progression, or Severe Exacerbation? @ -Severe exacerbation Poses a threat to life or bodily function? How? (Chest pain, [place], CA, pneumonia, PE, COPD, DKA, ARF, appy, cholecystitis, CVA, Diverticulitis, Homicidal, Suicidal, threat to staff... and all critical care pts) @ -Yes Diagnosis/symptom? @ -Hypercarbia Acute, or Chronic, or Acute on Chronic? @ -Acute Uncomplicated (without systemic symptoms) or Complicated (systemic symptoms)? @ -Complicated Side effects of treatment? @ -none Exacerbation, Progression, or Severe Exacerbation] @ -no Poses a threat to life or bodily function? @ -Yes, patient has increasing confusion secondary to this Diagnosis/symptom? @ -Anemia Acute, or Chronic, or Acute on Chronic? @ -Acute Uncomplicated (without systemic symptoms) or Complicated (systemic symptoms)? @ -Uncomplicated Side effects of treatment? @ -none Exacerbation, Progression, or Severe Exacerbation] @ -no Poses a threat to life or bodily function? @ -no (Santos Brandt) - Lab Data Lab Results 10/18/22 10/18/22 10/18/22 Range/Units 14:42 14:42 14:42 WBC 7.3 (3.8-10.6) k/uL RBC 2.75 L (3.80-5.40) m/uL Hgb 7.4 L (11.4-16.0) gm/dL Hct 23.8 L (34.0-46.0) % MCV 86.5 (80.0-100.0) fL MCH 26.8 (25.0-35.0) pg MCHC 31.0 (31.0-37.0) g/dL RDW 17.0 H (11.5-15.5) % Plt Count 177 (150-450) k/uL MPV 8.5 Neutrophils % 79 % Lymphocytes % 9 % Monocytes % 10 % Eosinophils % 1 % Basophils % 0 % Neutrophils # 5.7 (1.3-7.7) k/uL Lymphocytes # 0.6 L (1.0-4.8) k/uL Monocytes # 0.7 (0-1.0) k/uL Eosinophils # 0.1 (0-0.7) k/uL Basophils # 0.0 (0-0.2) k/uL Hypochromasia Moderate Anisocytosis Slight PT >130.0 H (9.0-12.0) sec INR >10.0 H* (<1.2) APTT 58.2 H (22.0-30.0) sec VBG pH (7.31-7.41) VBG pCO2 (37-51) mmHg VBG HCO3 (24-28) mmol/L Sodium 135 L (137-145) mmol/L Potassium 5.0 (3.5-5.1) mmol/L Chloride 99 (98-107) mmol/L Carbon Dioxide 30 (22-30) mmol/L Anion Gap 6 mmol/L BUN 51 H (7-17) mg/dL Creatinine 2.36 H (0.52-1.04) mg/dL Est GFR (CKD-EPI)AfAm 24 (>60 ml/min/1.73 sqM) Est GFR (CKD-EPI)NonAf 21 (>60 ml/min/1.73 sqM) Glucose 105 H (74-99) mg/dL Plasma Lactic Acid Jac (0.7-2.0) mmol/L Calcium 7.9 L (8.4-10.2) mg/dL Magnesium 2.6 H (1.6-2.3) mg/dL Total Bilirubin 0.9 (0.2-1.3) mg/dL AST 24 (14-36) U/L ALT 18 (4-34) U/L Alkaline Phosphatase 93 (38-126) U/L Troponin I (0.000-0.034) ng/mL NT-Pro-B Natriuret Pep pg/mL Total Protein 6.3 (6.3-8.2) g/dL Albumin 3.4 L (3.5-5.0) g/dL TSH (0.465-4.680) mIU/L Free T4 (0.78-2.19) ng/dL Stool Occult Blood (Negative) 10/18/22 10/18/22 10/18/22 Range/Units 14:42 14:42 14:42 WBC (3.8-10.6) k/uL RBC (3.80-5.40) m/uL Hgb (11.4-16.0) gm/dL Hct (34.0-46.0) % MCV (80.0-100.0) fL MCH (25.0-35.0) pg MCHC (31.0-37.0) g/dL RDW (11.5-15.5) % Plt Count (150-450) k/uL MPV Neutrophils % % Lymphocytes % % Monocytes % % Eosinophils % % Basophils % % Neutrophils # (1.3-7.7) k/uL Lymphocytes # (1.0-4.8) k/uL Monocytes # (0-1.0) k/uL Eosinophils # (0-0.7) k/uL Basophils # (0-0.2) k/uL Hypochromasia Anisocytosis PT (9.0-12.0) sec INR (<1.2) APTT (22.0-30.0) sec VBG pH (7.31-7.41) VBG pCO2 (37-51) mmHg VBG HCO3 (24-28) mmol/L Sodium (137-145) mmol/L Potassium (3.5-5.1) mmol/L Chloride (98-107) mmol/L Carbon Dioxide (22-30) mmol/L Anion Gap mmol/L BUN (7-17) mg/dL Creatinine (0.52-1.04) mg/dL Est GFR (CKD-EPI)AfAm (>60 ml/min/1.73 sqM) Est GFR (CKD-EPI)NonAf (>60 ml/min/1.73 sqM) Glucose (74-99) mg/dL Plasma Lactic Acid Jac 2.0 (0.7-2.0) mmol/L Calcium (8.4-10.2) mg/dL Magnesium (1.6-2.3) mg/dL Total Bilirubin (0.2-1.3) mg/dL AST (14-36) U/L ALT (4-34) U/L Alkaline Phosphatase (38-126) U/L Troponin I 0.017 (0.000-0.034) ng/mL NT-Pro-B Natriuret Pep 4680 pg/mL Total Protein (6.3-8.2) g/dL Albumin (3.5-5.0) g/dL TSH (0.465-4.680) mIU/L Free T4 (0.78-2.19) ng/dL Stool Occult Blood (Negative) 10/18/22 10/18/22 10/18/22 Range/Units 14:42 16:28 16:28 WBC (3.8-10.6) k/uL RBC (3.80-5.40) m/uL Hgb (11.4-16.0) gm/dL Hct (34.0-46.0) % MCV (80.0-100.0) fL MCH (25.0-35.0) pg MCHC (31.0-37.0) g/dL RDW (11.5-15.5) % Plt Count (150-450) k/uL MPV Neutrophils % % Lymphocytes % % Monocytes % % Eosinophils % % Basophils % % Neutrophils # (1.3-7.7) k/uL Lymphocytes # (1.0-4.8) k/uL Monocytes # (0-1.0) k/uL Eosinophils # (0-0.7) k/uL Basophils # (0-0.2) k/uL Hypochromasia Anisocytosis PT (9.0-12.0) sec INR (<1.2) APTT (22.0-30.0) sec VBG pH 7.23 L (7.31-7.41) VBG pCO2 74 H* (37-51) mmHg VBG HCO3 30 H (24-28) mmol/L Sodium (137-145) mmol/L Potassium (3.5-5.1) mmol/L Chloride (98-107) mmol/L Carbon Dioxide (22-30) mmol/L Anion Gap mmol/L BUN (7-17) mg/dL Creatinine (0.52-1.04) mg/dL Est GFR (CKD-EPI)AfAm (>60 ml/min/1.73 sqM) Est GFR (CKD-EPI)NonAf (>60 ml/min/1.73 sqM) Glucose (74-99) mg/dL Plasma Lactic Acid Jac (0.7-2.0) mmol/L Calcium (8.4-10.2) mg/dL Magnesium (1.6-2.3) mg/dL Total Bilirubin (0.2-1.3) mg/dL AST (14-36) U/L ALT (4-34) U/L Alkaline Phosphatase (38-126) U/L Troponin I (0.000-0.034) ng/mL NT-Pro-B Natriuret Pep pg/mL Total Protein (6.3-8.2) g/dL Albumin (3.5-5.0) g/dL TSH 9.200 H (0.465-4.680) mIU/L Free T4 2.17 (0.78-2.19) ng/dL Stool Occult Blood Negative (Negative) 10/18/22 Range/Units 19:08 WBC 7.6 (3.8-10.6) k/uL RBC 2.47 L (3.80-5.40) m/uL Hgb 6.8 L* (11.4-16.0) gm/dL Hct 21.5 L (34.0-46.0) % MCV 87.2 (80.0-100.0) fL MCH 27.5 (25.0-35.0) pg MCHC 31.5 (31.0-37.0) g/dL RDW 17.0 H (11.5-15.5) % Plt Count 177 (150-450) k/uL MPV 8.6 Neutrophils % 78 % Lymphocytes % 8 % Monocytes % 11 % Eosinophils % 1 % Basophils % 0 % Neutrophils # 6.0 (1.3-7.7) k/uL Lymphocytes # 0.6 L (1.0-4.8) k/uL Monocytes # 0.9 (0-1.0) k/uL Eosinophils # 0.1 (0-0.7) k/uL Basophils # 0.0 (0-0.2) k/uL Hypochromasia Moderate Anisocytosis Slight PT (9.0-12.0) sec INR (<1.2) APTT (22.0-30.0) sec VBG pH (7.31-7.41) VBG pCO2 (37-51) mmHg VBG HCO3 (24-28) mmol/L Sodium (137-145) mmol/L Potassium (3.5-5.1) mmol/L Chloride (98-107) mmol/L Carbon Dioxide (22-30) mmol/L Anion Gap mmol/L BUN (7-17) mg/dL Creatinine (0.52-1.04) mg/dL Est GFR (CKD-EPI)AfAm (>60 ml/min/1.73 sqM) Est GFR (CKD-EPI)NonAf (>60 ml/min/1.73 sqM) Glucose (74-99) mg/dL Plasma Lactic Acid Jac (0.7-2.0) mmol/L Calcium (8.4-10.2) mg/dL Magnesium (1.6-2.3) mg/dL Total Bilirubin (0.2-1.3) mg/dL AST (14-36) U/L ALT (4-34) U/L Alkaline Phosphatase (38-126) U/L Troponin I (0.000-0.034) ng/mL NT-Pro-B Natriuret Pep pg/mL Total Protein (6.3-8.2) g/dL Albumin (3.5-5.0) g/dL TSH (0.465-4.680) mIU/L Free T4 (0.78-2.19) ng/dL Stool Occult Blood (Negative) Critical Care Time Critical Care Time: Yes Total Critical Care Time: 62 <Santos Brandt - Last Filed: 10/19/22 00:51> Disposition <Adriano Douglas - Last Filed: 10/18/22 15:09> Is patient prescribed a controlled substance at d/c from ED?: No Time of Disposition: 17:30 Decision to Admit Reason: Admit from EC Decision Date: 10/18/22 Decision Time: 17:30 <Santos Brandt - Last Filed: 10/19/22 00:51> Clinical Impression: Congestive heart failure, Marfan syndrome, Acute respiratory failure with hypoxia, Hypercoagulable state, Anemia, Hypercarbia Disposition: ADMITTED IP TO THIS [facility] Condition: Stable
[2022-10-18] MEDS ORDERED: SODIUM CHLORIDE 0.9% 1,000 ML IV ONE (16:24)
[2022-10-18 17:03] LABS: VBG PH 7.23 (7.31-7.41)
[2022-10-18] MEDS ORDERED: PHYTONADIONE ORAL 5 MG/5 ML ORAL.SYRG PO STA (18:13)
[2022-10-18 19:47] LABS: Anisocytosis Slight; Basophils % (A) 0 %; Eosinophils # (A) 0.1 k/uL (0-0.7); Eosinophils % (A) 1 %; HCT 21.5 % (34.0-46.0); Hypochromasia Moderate; Lymphocytes # (A) 0.6 k/uL (1.0-4.8); Lymphocytes % (A) 8 %; MCH 27.5 pg (25.0-35.0); MCHC 31.5 g/dL (31.0-37.0); MCV 87.2 fL (80.0-100.0); Mean Platelet Volume 8.6; Monocytes # (A) 0.9 k/uL (0-1.0); Monocytes % (A) 11 %; Neutrophils % (A) 78 %; Platelet Count 177 k/uL (150-450); RBC 2.47 m/uL (3.80-5.40); WBC 7.6 k/uL (3.8-10.6)
[2022-10-18 19:49] LABS: HGB 6.8 gm/dL (11.4-16.0)
[2022-10-18] MEDS ORDERED: NALOXONE 0.4 MG/ML 1 ML VIAL IV PRN (19:53)
[2022-10-18 21:10] LABS: T4, Free (Free Thyroxine) 2.17 ng/dL (0.78-2.19)
[2022-10-18 23:23] LABS: Glucose,Whole Blood 110 mg/dL (70-110)
[2022-10-19] MEDS: NOREPINEPHRINE 4 MG in SODIUM CHLORIDE 0.9% 250 ML IV SCH ×4 (00:58→15:20)
[2022-10-19 06:10] LABS: Anisocytosis Slight; Basophils % (A) 0 %; Eosinophils # (A) 0.2 k/uL (0-0.7); Eosinophils % (A) 2 %; HCT 25.8 % (34.0-46.0); HGB 7.8 gm/dL (11.4-16.0); Hypochromasia Marked; Lymphocytes # (A) 0.7 k/uL (1.0-4.8); Lymphocytes % (A) 7 %; MCH 27.3 pg (25.0-35.0); MCHC 30.4 g/dL (31.0-37.0); MCV 89.7 fL (80.0-100.0); Mean Platelet Volume 8.2; Monocytes # (A) 0.9 k/uL (0-1.0); Monocytes % (A) 10 %; Neutrophils # (A) 7.2 k/uL (1.3-7.7); Neutrophils % (A) 78 %; Platelet Count 197 k/uL (150-450); Poikilocytosis Slight; RBC 2.88 m/uL (3.80-5.40); WBC 9.2 k/uL (3.8-10.6)
[2022-10-19 06:45] LABS: Calcium 7.4 mg/dL (8.4-10.2); Potassium 5.4 mmol/L (3.5-5.1)
[2022-10-19] MEDS ORDERED: FUROSEMIDE 10 MG/ML 2 ML VIAL IV STA (08:09)
--- NOTE | 2022-10-19 08:19 | P.CRDCN ---
History of Present Illness Consult date: 10/19/22 Chief complaint: Shortness of breath History of present illness: The patient is a 67-year-old female patient with a past medical history signific ant for Marfan syndrome as well as valvular heart disease status post aortic valve replacement using mechanical valve 45 years ago along with ascending aortic aneurysm repair at that point and also history of cardiomyopathy as well as multiple comorbid conditions who presented to the hospital complaining of increasing shortness of breath. For the last week the patient has been experiencing progressive exertional dyspnea associated with progressive bilateral lower extremities edema and weight gain. No symptoms of chest pain or chest discomfort and no dizziness or lightheadedness and no feeling of heart racing or fluttering or presyncope or syncope. She is known to have cardiomyopathy based on echo was performed in 2018 showing an EF around 35% with normally functioning mechanical aortic valve prosthesis. She stated that she has been compliant with her medications as well as has been compliant with her diet. She was found to be in heart failure and also she was found to be in acute renal failure with her creatinine is more than 2 and her baseline creatinine is within normal limits. Beside that she was anemic with a hemoglobin of 6.8 and she received one unit of packed RBC. Also she was hypotensive and currently she is on small doses of norepinephrine. When she was seen and examined this morning she seems to be in fluid overload. I'm going to give the patient 20 mg of Lasix IV once and also I am going to consult nephrology service for further evaluation of the acute renal failure. Critical care service is on the case as well. Clearly the patient is hypoxic when she presented and continues to be hypoxic at this point. No indication that she is septic. We are also going to obtain an echocardiogram to evaluate the ejection fraction at this point and also to evaluate the aortic valve prosthesis. Her INR was supratherapeutic when she presented to the hospital. Past Medical History Past Medical History: Atrial Fibrillation, Heart Failure, Eye Disorder, Hypertension, Osteoarthritis (OA), Pneumonia, Thyroid Disorder Additional Past Medical History / Comment(s): History of Marfan syndrome with pr evious aortic valve replacement and repair of an ascending and descending aortic aneurysm, hypothyroidism, history of right eye blindness along with a right retinal eye vein occlusion, scoliosis of the spine. History of Any Multi-Drug Resistant Organisms: None Reported Past Surgical History: Cardiac Valve Replacement, Heart Catheterization, Hystere ctomy, Orthopedic Surgery Additional Past Surgical History / Comment(s): Aortic valve replacement with placement of a mechanical valve, and upper aortic aneurysm repair [address] [facility], descending aortic repair [facility], bilateral cataract removal with lens, R knee ACL repair. Past Anesthesia/Blood Transfusion Reactions: No Reported Reaction Additional Past Anesthesia/Blood Transfusion Reaction / Comment(s): Pt. believes she has received blood in the past without reaction. Past Psychological History: No Psychological Hx Reported Additional Psychological History / Comment(s): Pt lives at home and her son, daughter in law and grandchild live with her. She uses a cane/walker to ambulate. She drives. She is independent. Smoking Status: Never smoker Past Alcohol Use History: Occasional Past Drug Use History: None Reported - Past Family History Father Family Medical History: Unable to Obtain Additional Family Medical History / Comment(s): Father is . Pt unable to give history-becomes very tearful speaking of parents. Mother Family Medical History: Unable to Obtain Additional Family Medical History / Comment(s): Mother is . Medications and Allergies Home Medications Medication Instructions Recorded Confirmed Type Metoprolol Succinate [Toprol XL] 100 mg PO DAILY 12/01/15 10/18/22 History Levothyroxine Sodium [Synthroid] 150 mcg PO DAILY 12/02/15 10/18/22 History Warfarin [Coumadin] 5 mg PO HS 12/02/15 10/18/22 History Fluticasone Propion/Salmeterol 1 puff INHALATION DIRECTED 10/18/22 10/18/22 History [Advair 250-50 Diskus] Furosemide [Lasix] 40 mg PO BID@0900,1600 10/18/22 10/18/22 History Losartan Potassium 100 mg PO HS 10/18/22 10/18/22 History Potassium Chloride ER [K-Dur 20] 10 meq PO HS 10/18/22 10/18/22 History Allergies Allergy/AdvReac Type Severity Reaction Status Date / Time citalopram [From Celexa] AdvReac Nausea & Verified 10/18/22 18:22 Vomiting Physical Exam Vitals: Vital Signs Temp Pulse Resp BP Pulse Ox FiO2 10/19/22 07:25 40 10/19/22 07:00 60 57 H 113/77 96 10/19/22 06:50 66 17 70/28 97 10/19/22 06:40 59 L 31 H 70/33 96 10/19/22 06:30 60 34 H 63/29 96 10/19/22 06:20 66 29 H 63/29 94 L 10/19/22 06:10 60 30 H 120/73 93 L 10/19/22 06:00 63 20 94/57 90 L 10/19/22 05:50 68 20 94/57 97 10/19/22 05:40 67 21 91/36 96 10/19/22 05:30 65 16 125/84 96 10/19/22 05:20 68 28 H 125/84 91 L 10/19/22 05:10 68 18 91/66 98 10/19/22 05:00 63 65 H 73/42 99 10/19/22 04:50 63 13 73/42 99 10/19/22 04:40 65 16 79/55 99 10/19/22 04:30 45 H 87/46 98 10/19/22 04:20 58 L 21 87/46 96 10/19/22 04:10 53 L 59 H 75/28 100 10/19/22 04:00 54 L 60 H 80/43 100 10/19/22 03:50 57 L 35 H 80/43 98 10/19/22 03:40 43 H 64/48 99 10/19/22 03:30 63 23 69/33 97 10/19/22 03:24 40 10/19/22 03:20 60 17 69/33 100 10/19/22 03:10 58 L 33 H 84/35 100 10/19/22 03:00 55 L 31 H 60/42 100 10/19/22 02:50 56 L 20 60/42 100 10/19/22 02:40 67 79 H 75/35 10/19/22 02:30 58 L 41 H 85/22 97 10/19/22 02:20 55 L 14 85/22 96 10/19/22 02:10 68 22 80/61 93 L 10/19/22 02:00 59 L 20 101/70 83 L 10/19/22 01:50 62 21 101/70 93 L 10/19/22 01:40 67 12 103/85 10/19/22 01:30 68 31 H 86/61 10/19/22 01:20 55 L 18 86/61 96 10/19/22 01:10 56 L 28 H 88/45 94 L 10/19/22 01:00 65 33 H 76/46 89 L 10/19/22 00:50 63 18 76/46 95 10/19/22 00:40 56 L 17 68/41 92 L 10/19/22 00:30 54 L 26 H 70/41 97 10/19/22 00:20 62 19 70/41 97 10/19/22 00:16 96.9 F L 64 18 70/41 98 10/19/22 00:10 59 L 26 H 73/37 97 10/19/22 00:00 58 L 25 H 80/43 97 10/18/22 23:58 58 L 5 L 80/43 96 10/18/22 23:56 97.4 F L 58 L 20 73/37 97 10/18/22 23:50 97.4 F L 57 L 13 80/43 94 L 10/18/22 23:46 97.6 F 71 17 80/43 10/18/22 23:40 69 19 80/45 93 L 10/18/22 23:30 75 19 78/43 78 L 10/18/22 23:20 68 93/61 45 10/18/22 23:17 123/104 10/18/22 22:12 57 L 10 L 77/42 97 10/18/22 21:38 59 L 15 63/37 98 10/18/22 21:14 63 9 L 75/36 93 L 10/18/22 21:09 45 10/18/22 19:55 65 17 76/43 96 10/18/22 19:49 45 10/18/22 19:00 96.9 F L 64 24 79/35 100 10/18/22 18:09 70 24 101/64 97 10/18/22 17:04 73 24 87/55 99 10/18/22 15:35 67 24 74/51 100 10/18/22 15:15 45 10/18/22 14:34 97.7 F 75 30 H 91/59 98 Intake and Output 10/18/22 10/19/22 10/19/22 22:59 06:59 14:59 Intake Total 928.284 20 Balance 928.284 20 Intake: IV 120 20 IV Fluid 120 20 Intake, IV Titration 188.284 Amount Norepinephrine 4 mg In 188.284 Sodium Chloride 0.9% 250 ml @ 0.03 MCG/KG/MIN 16. 077 mls/hr IV .[id number] [facility] Rx#:[id number] Blood Product 620 Rc As-1 Unit 310 [id number] Other: Weight 140.659 kg - Constitutional General appearance: no acute distress - Respiratory Respiratory: bilateral: diminished - Cardiovascular Rhythm: regular Abnormal Heart Sounds: systolic murmur Results 10/19/22 05:53 10/19/22 05:53 Cardiac Enzymes 10/18/22 10/18/22 Range/Units 14:42 14:42 AST 24 (14-36) U/L Troponin I 0.017 (0.000-0.034) ng/mL Coagulation 10/18/22 Range/Units 14:42 PT >130.0 H (9.0-12.0) sec APTT 58.2 H (22.0-30.0) sec CBC 10/18/22 10/18/22 10/19/22 Range/Units 14:42 19:08 05:53 WBC 7.3 7.6 9.2 (3.8-10.6) k/uL RBC 2.75 L 2.47 L 2.88 L (3.80-5.40) m/uL Hgb 7.4 L 6.8 L* 7.8 L (11.4-16.0) gm/dL Hct 23.8 L 21.5 L 25.8 L (34.0-46.0) % Plt Count 177 177 197 (150-450) k/uL Comprehensive Metabolic Panel 10/18/22 10/19/22 Range/Units 14:42 05:53 Sodium 135 L 135 L (137-145) mmol/L Potassium 5.0 5.4 H (3.5-5.1) mmol/L Chloride 99 100 (98-107) mmol/L Carbon Dioxide 30 29 (22-30) mmol/L BUN 51 H 51 H (7-17) mg/dL Creatinine 2.36 H 2.81 H (0.52-1.04) mg/dL Glucose 105 H 111 H (74-99) mg/dL Calcium 7.9 L 7.4 L (8.4-10.2) mg/dL AST 24 (14-36) U/L ALT 18 (4-34) U/L Alkaline Phosphatase 93 (38-126) U/L Total Protein 6.3 (6.3-8.2) g/dL Albumin 3.4 L (3.5-5.0) g/dL Current Medications Generic Name Dose Route Start Last Admin Trade Name Freq PRN Reason Stop Dose Admin Norepinephrine Bitartrate 4 mg 254 mls @ 16.077 mls/hr 10/19/22 01:00 10/19/22 06:58 / Sodium Chloride IV 0.08 mcg/kg/min .[id number] MAJO 42.873 mls/hr Titration Protocol 0.03 MCG/KG/MIN Naloxone HCl 0.2 mg 10/18/22 19:53 Naloxone 0.4 Mg/Ml 1 Ml Vial IV Q2M PRN Opioid Reversal Intake and Output 10/18/22 10/19/22 10/19/22 22:59 06:59 14:59 Intake Total 928.284 20 Balance 928.284 20 Intake: IV 120 20 IV Fluid 120 20 Intake, IV Titration 188.284 Amount Norepinephrine 4 mg In 188.284 Sodium Chloride 0.9% 250 ml @ 0.03 MCG/KG/MIN 16. 077 mls/hr IV .[id number] [facility] Rx#:[id number] Blood Product 620 Rc As-1 Unit 310 [id number] Other: Weight 140.659 kg 10/19/22 05:53 10/19/22 05:53 Assessment and Plan Assessment: Assessment Congestive heart failure exacerbation related to heart failure with reduced ejection fraction Severe cardiomyopathy based on echo was performed in 2018 Valvular heart disease status post aortic valve replacement using mechanical valve Status post ascending aortic repair Acute renal failure Hypotension requiring vasopressors likely secondary to anemia Anemia required blood transfusion Multiple comorbid conditions Plan Avoid any nephrotoxic medication Give the patient 20 mg of Lasix IV once Monitor the kidney function and electrolytes and monitor the hemoglobin Nephrology consult Blood transfusion if the hemoglobin dropped below 7 An echocardiogram was Doppler Follow-up with the patient
[2022-10-19 08:54] LABS: Prothrombin Time 68.8 sec (9.0-12.0)
[2022-10-19 08:59] LABS: INR 6.9 (<1.2)
[2022-10-19] MEDS: LEVOTHYROXINE IVP 100 MCG/5 ML VIAL IV SCH (09:30)
--- NOTE | 2022-10-19 11:24 | P.CNPUL ---
History of Present Illness Consult date: 10/19/22 Requesting physician: Dillon Scott Reason for consult: dyspnea, abnormal CXR/CT Chief complaint: Shortness of breath, lower extremity edema History of present illness: This is a pleasant 67-year-old female patient with a known history of atrial fibrillation anticoagulation with warfarin, obesity, congestive heart failure, hypertension, hypothyroidism, right retinal vein occlusion with blindness. She also has a history of Marfan syndrome and has had aortic valve replacement with mechanical valve and repair an ascending aortic aneurysm 45 years ago at [facility]. She had a descending aortic aneurysm repair here years ago. Presented here to the emergency room yesterday with complaints of increasing shortness of breath, lower extremity edema. Last echocardiogram from here in 2018 revealed moderately impaired left ventricular systolic function with ejection fraction 35-40%. Normally functioning mechanical prosthetic valve. Chest x-ray reveals a chronic right basilar consolidation/atelectasis and elevation of the right hemidiaphragm with chronic mild pulmonary congestion and persistent cardiomegaly. Unchanged compared to a previous of April 2022. EKG reveals atrial fibrillation. Presenting INR greater than 10. Initial hemoglobin 6.8. She did receive 1 unit of packed red blood cells and current hemoglobin 7.8. White count 9.2. Platelets 197. INR 6.9 following a dose of vitamin K. Sodium 135. Potassium 5.4. BUN 51. Creatinine 2.81. Glucose 111. Cortisol level 28. TSH 9.2. Free T4 2 0.17. She is seen today in consultation in the intensive care unit. She is currently on BiPAP 10/5 and 40% FiO2. She has normal saline at 20 mL per hour. She is also requiring norepinephrine at 14 mcg/m. Moody blood gas revealed a bicarb of 30, pCO2 of 74 and a pH of 7.23. She did receive 1.5 L of fluid resuscitation yesterday. She was given Lasix 20 mg IVP 1 this a.m. Is awake and alert. Requesting to be off the BiPAP. We'll transition her to nasal cannula as tolerated Review of Systems REVIEW OF SYSTEMS: CONSTITUTIONAL: Denies any recent significant weight loss or weight gain. EYES: Denies change in vision. EARS, NOSE, MOUTH, THROAT: Denies headaches, denies sore throat. CARDIOVASCULAR: Denies chest pain, palpitations or syncopal episodes. RESPIRATORY: Positive for shortness of breath, no cough, congestion or hemoptysis. GASTROINTESTINAL: Denies change in appetite, denies abdominal pain GENITOURINARY: Denies hematuria, denies infections. MUSKULOSKELETAL: Positive for lower extremity swelling. INTEGUMENTARY: Denies rash, denies eczema. NEUROLOGICAL: Denies recent memory loss, no recent seizure activity. PSYCHIATRIC: Denies anxiety, denies depression. HEMATOLOGIC/LYMPHATIC: Denies anemia, denies enlarged lymph nodes. Past Medical History Past Medical History: Atrial Fibrillation, Heart Failure, Eye Disorder, Hypertension, Osteoarthritis (OA), Pneumonia, Thyroid Disorder Additional Past Medical History / Comment(s): History of Marfan syndrome with previous aortic valve replacement and repair of an ascending and descending aortic aneurysm, hypothyroidism, history of right eye blindness along with a right retinal eye vein occlusion, scoliosis of the spine. History of Any Multi-Drug Resistant Organisms: None Reported Past Surgical History: Cardiac Valve Replacement, Heart Catheterization, Hysterectomy, Orthopedic Surgery Additional Past Surgical History / Comment(s): Aortic valve replacement with placement of a mechanical valve, and upper aortic aneurysm repair 40 yrs ago at [facility], descending aortic repair [facility], bilateral cataract removal with lens, R knee ACL repair. Past Anesthesia/Blood Transfusion Reactions: No Reported Reaction Additional Past Anesthesia/Blood Transfusion Reaction / Comment(s): Pt. believes she has received blood in the past without reaction. Past Psychological History: No Psychological Hx Reported Additional Psychological History / Comment(s): Pt lives at home and her son, daughter in law and grandchild live with her. She uses a cane/walker to ambulate. She drives. She is independent. Smoking Status: Never smoker Past Alcohol Use History: Occasional Past Drug Use History: None Reported - Past Family History Father Family Medical History: Unable to Obtain Additional Family Medical History / Comment(s): Father is . Pt unable to give history-becomes very tearful speaking of parents. Mother Family Medical History: Unable to Obtain Additional Family Medical History / Comment(s): Mother is . Medications and Allergies Home Medications Medication Instructions Recorded Confirmed Type Metoprolol Succinate [Toprol XL] 100 mg PO DAILY 12/01/15 10/18/22 History Levothyroxine Sodium [Synthroid] 150 mcg PO DAILY 12/02/15 10/18/22 History Warfarin [Coumadin] 5 mg PO HS 12/02/15 10/18/22 History Fluticasone Propion/Salmeterol 1 puff INHALATION DIRECTED 10/18/22 10/18/22 History [Advair 250-50 Diskus] Furosemide [Lasix] 40 mg PO BID@0900,1600 10/18/22 10/18/22 History Losartan Potassium 100 mg PO HS 10/18/22 10/18/22 History Potassium Chloride ER [K-Dur 20] 10 meq PO HS 10/18/22 10/18/22 History Allergies Allergy/AdvReac Type Severity Reaction Status Date / Time citalopram [From Celexa] AdvReac Nausea & Verified 10/18/22 18:22 Vomiting Physical Exam Vitals: Vital Signs Temp Pulse Resp BP Pulse Ox FiO2 10/19/22 10:45 70 22 89/43 90 L 10/19/22 10:30 70 22 89/38 92 L 10/19/22 10:15 65 24 86/36 92 L 10/19/22 10:00 73 22 93/30 91 L 10/19/22 09:45 62 22 86/23 99 10/19/22 09:30 68 24 75/37 98 10/19/22 09:15 64 22 81/35 97 10/19/22 09:00 62 27 H 77/30 97 10/19/22 08:45 70 22 78/37 97 10/19/22 08:30 70 32 H 99/77 97 10/19/22 08:15 67 22 81/36 97 10/19/22 08:00 98.3 F 65 22 76/54 98 40 10/19/22 07:45 68 25 H 78/60 98 10/19/22 07:30 67 26 H 80/31 98 10/19/22 07:25 40 10/19/22 07:00 60 57 H 113/77 96 10/19/22 06:50 66 17 70/28 97 10/19/22 06:40 59 L 31 H 70/33 96 10/19/22 06:30 60 34 H 63/29 96 10/19/22 06:20 66 29 H 63/29 94 L 10/19/22 06:10 60 30 H 120/73 93 L 10/19/22 06:00 63 20 94/57 90 L 10/19/22 05:50 68 20 94/57 97 10/19/22 05:40 67 21 91/36 96 10/19/22 05:30 65 16 125/84 96 10/19/22 05:20 68 28 H 125/84 91 L 10/19/22 05:10 68 18 91/66 98 10/19/22 05:00 63 65 H 73/42 99 10/19/22 04:50 63 13 73/42 99 10/19/22 04:40 65 16 79/55 99 10/19/22 04:30 45 H 87/46 98 10/19/22 04:20 58 L 21 87/46 96 10/19/22 04:10 53 L 59 H 75/28 100 10/19/22 04:00 54 L 60 H 80/43 100 10/19/22 03:50 57 L 35 H 80/43 98 10/19/22 03:40 43 H 64/48 99 10/19/22 03:30 63 23 69/33 97 10/19/22 03:24 40 10/19/22 03:20 60 17 69/33 100 10/19/22 03:10 58 L 33 H 84/35 100 10/19/22 03:00 55 L 31 H 60/42 100 10/19/22 02:50 56 L 20 60/42 100 10/19/22 02:40 67 79 H 75/35 10/19/22 02:30 58 L 41 H 85/22 97 10/19/22 02:20 55 L 14 85/22 96 10/19/22 02:10 68 22 80/61 93 L 10/19/22 02:00 59 L 20 101/70 83 L 10/19/22 01:58 97.8 F 59 L 20 101/70 93 L 10/19/22 01:50 62 21 101/70 93 L 10/19/22 01:40 67 12 103/85 10/19/22 01:30 68 31 H 86/61 10/19/22 01:20 55 L 18 86/61 96 10/19/22 01:10 56 L 28 H 88/45 94 L 10/19/22 01:00 65 33 H 76/46 89 L 10/19/22 00:50 63 18 76/46 95 10/19/22 00:40 56 L 17 68/41 92 L 10/19/22 00:30 54 L 26 H 70/41 97 10/19/22 00:20 62 19 70/41 97 10/19/22 00:16 96.9 F L 64 18 70/41 98 10/19/22 00:10 59 L 26 H 73/37 97 10/19/22 00:00 58 L 25 H 80/43 97 10/18/22 23:58 58 L 5 L 80/43 96 10/18/22 23:56 97.4 F L 58 L 20 73/37 97 10/18/22 23:50 97.4 F L 57 L 13 80/43 94 L 10/18/22 23:46 97.6 F 71 17 80/43 10/18/22 23:40 69 19 80/45 93 L 10/18/22 23:30 75 19 78/43 78 L 10/18/22 23:20 68 93/61 45 10/18/22 23:17 123/104 10/18/22 22:12 57 L 10 L 77/42 97 10/18/22 21:38 59 L 15 63/37 98 10/18/22 21:14 63 9 L 75/36 93 L 10/18/22 21:09 45 10/18/22 19:55 65 17 76/43 96 10/18/22 19:49 45 10/18/22 19:00 96.9 F L 64 24 79/35 100 10/18/22 18:09 70 24 101/64 97 10/18/22 17:04 73 24 87/55 99 10/18/22 15:35 67 24 74/51 100 10/18/22 15:15 45 10/18/22 14:34 97.7 F 75 30 H 91/59 98 Intake and Output 10/18/22 10/19/22 10/19/22 22:59 06:59 14:59 Intake Total 928.284 275.585 Balance 928.284 275.585 Intake: IV 120 80 IV Fluid 120 80 Intake, IV Titration 188.284 195.585 Amount Norepinephrine 4 mg In 188.284 195.585 Sodium Chloride 0.9% 250 ml @ 0.03 MCG/KG/MIN 16. 077 mls/hr IV .[id number] [facility] Rx#:[id number] Blood Product 620 Rc As-1 Unit 310 [id number] Other: Voiding Method External Catheter Weight 140.659 kg GENERAL EXAM: Alert, obese, 67-year-old female, on BiPAP 10/5 and 40% FiO2, fairly comfortable in no apparent distress. HEAD: Features of Marfan syndrome. EYES: Normal reaction of pupils, equal size. NOSE: Clear with pink turbinates. THROAT: No erythema or exudates. NECK: No masses, no JVD. CHEST: No chest wall deformity. LUNGS: Equal air entry with crackles in the bilateral bases. CVS: S1 and S2 normal with no audible murmur, prosthetic click heard, irregular rhythm. ABDOMEN: No hepatosplenomegaly, normal bowel sounds, no guarding or rigidity. SPINE: Noted scoliosis SKIN: No rashes CENTRAL NERVOUS SYSTEM: No focal deficits, tone is normal in all 4 extremities. EXTREMITIES: There is 1+ peripheral edema. No clubbing, no cyanosis. Peripheral pulses are intact. Results - Laboratory Findings CBC and BMP: 10/19/22 05:53 10/19/22 05:53 PT/INR, D-dimer PT 68.8 sec (9.0-12.0) H 10/19/22 08:13 INR 6.9 (<1.2) H* 10/19/22 08:13 Abnormal lab findings: Abnormal Labs 10/18/22 10/18/22 10/18/22 14:42 14:42 14:42 RBC 2.75 L Hgb 7.4 L Hct 23.8 L MCHC RDW 17.0 H Lymphocytes # 0.6 L PT >130.0 H INR >10.0 H* APTT 58.2 H VBG pH VBG pCO2 VBG HCO3 Sodium 135 L Potassium BUN 51 H Creatinine 2.36 H Glucose 105 H Calcium 7.9 L Magnesium 2.6 H Albumin 3.4 L TSH Crossmatch 10/18/22 10/18/22 10/18/22 14:42 16:28 19:08 RBC 2.47 L Hgb 6.8 L* Hct 21.5 L MCHC RDW 17.0 H Lymphocytes # 0.6 L PT INR APTT VBG pH 7.23 L VBG pCO2 74 H* VBG HCO3 30 H Sodium Potassium BUN Creatinine Glucose Calcium Magnesium Albumin TSH 9.200 H Crossmatch 10/18/22 10/19/22 10/19/22 21:42 05:53 05:53 RBC 2.88 L Hgb 7.8 L Hct 25.8 L MCHC 30.4 L RDW 17.0 H Lymphocytes # 0.7 L PT INR APTT VBG pH VBG pCO2 VBG HCO3 Sodium 135 L Potassium 5.4 H BUN 51 H Creatinine 2.81 H Glucose 111 H Calcium 7.4 L Magnesium Albumin TSH Crossmatch See Detail 10/19/22 08:13 RBC Hgb Hct MCHC RDW Lymphocytes # PT 68.8 H INR 6.9 H* APTT VBG pH VBG pCO2 VBG HCO3 Sodium Potassium BUN Creatinine Glucose Calcium Magnesium Albumin TSH Crossmatch - Diagnostic Findings Chest x-ray: image reviewed Assessment and Plan Assessment: Acute hypoxemic respiratory failure secondary to acute exacerbation of systolic congestive heart failure Acute hypercapnic respiratory failure secondary to above currently on BiPAP 10/5 and 40% FiO2 Acute anemia with a hemoglobin of 7.8, status post 1 unit of packed red blood cells, current hemoglobin 7.8 Hypercoagulopathy with presenting INR greater than 10, received vitamin K, current INR 6.9 Acute renal failure, current creatinine 2.81, GFR 17 Hyperkalemia secondary to above Hypothyroidism, subtherapeutic, initiated Synthroid 100 g IV daily History of Marfan syndrome History of aortic valve replacement and repair of ascending aortic aneurysm nearly 45 years ago at [facility] History of repair of descending aortic aneurysm at this facility years ago History of right retinal vein occlusion with blindness Osteoarthritis Hypertension Plan: The patient was seen and evaluated Chest x-ray, medications and labs reviewed Check a serum cortisol level Add Synthroid 100 g IV daily Check a pro-calcitonin Was given Lasix 20 mg IVP 1 Received vitamin K 2.5 mg by mouth 1 Transition to nasal cannula as tolerated Titrate the norepinephrine as tolerated Echocardiogram pending We'll continue to monitor her closely in the ICU We'll continue to follow and make further recommendations based on her clinical status I have personally seen and examined the patient, performed the documentation and the assessment and plan as written. Number of minutes spent on the visit: 20.
[2022-10-19 11:52] LABS: Appearance,Urine Turbid (Clear); Bacteria,Urine Many /hpf; Bilirubin,Urine Negative (Negative); Blood,Urine Moderate (Negative); Color,Urine Light Red; Glucose,Urine (UA) Negative (Negative); Ketones,Urine Negative (Negative); Leukocyte Esterase,Urine Large (Negative); Nitrite,Urine Negative (Negative); Protein,Urine 3+ (Negative); WBC,Urine >182 /hpf (0-5)
[2022-10-19 11:58] LABS: Specific Gravity,Urine 1.016 (1.001-1.035)
--- NOTE | 2022-10-19 11:58 | P.NPCON ---
History of Present Illness - Reason for Consult acute renal failure - History of Present Illness Patient is a 67-year-old female with history of valvular heart disease status post mechanical aortic valve replacement and history of Marfan syndrome. Patient is admitted to the hospital with increased weakness and shortness of breath. Patient has also been hypotensive. Blood pressure has been around 80 systolic. She is being started on levo fed. Hemoglobin was 6.8 on admission. No active bleeding noted but stool for occult blood is positive. INR was 6.9. Serum creatinine at 2.8 which is up from 2.3 on admission. Previous creatinine on 06/21/2022 was 1.0. Patient has not had any urine output since admission. A Ace catheter was placed and small amount of milky white urine was obtained. Levo fed is currently up to 30 mics Review of Systems As per HPI. Past Medical History Past Medical History: Atrial Fibrillation, Heart Failure, Eye Disorder, Hypertension, Osteoarthritis (OA), Pneumonia, Thyroid Disorder Additional Past Medical History / Comment(s): History of Marfan syndrome with previous aortic valve replacement and repair of an ascending and descending aortic aneurysm, hypothyroidism, history of right eye blindness along with a right retinal eye vein occlusion, scoliosis of the spine. History of Any Multi-Drug Resistant Organisms: None Reported Past Surgical History: Cardiac Valve Replacement, Heart Catheterization, Hysterectomy, Orthopedic Surgery Additional Past Surgical History / Comment(s): Aortic valve replacement with placement of a mechanical valve, and upper aortic aneurysm repair 40 yrs ago at [facility], descending aortic repair [facility], bilateral cataract removal with lens, R knee ACL repair. Past Anesthesia/Blood Transfusion Reactions: No Reported Reaction Additional Past Anesthesia/Blood Transfusion Reaction / Comment(s): Pt. believes she has received blood in the past without reaction. Past Psychological History: No Psychological Hx Reported Additional Psychological History / Comment(s): Pt lives at home and her son, daughter in law and grandchild live with her. She uses a cane/walker to ambulate. She drives. She is independent. Smoking Status: Never smoker Past Alcohol Use History: Occasional Past Drug Use History: None Reported - Past Family History Father Family Medical History: Unable to Obtain Additional Family Medical History / Comment(s): Father is . Pt unable to give history-becomes very tearful speaking of parents. Mother Family Medical History: Unable to Obtain Additional Family Medical History / Comment(s): Mother is . Medications and Allergies Home Medications Medication Instructions Recorded Confirmed Type Metoprolol Succinate [Toprol XL] 100 mg PO DAILY 12/01/15 10/18/22 History Levothyroxine Sodium [Synthroid] 150 mcg PO DAILY 12/02/15 10/18/22 History Warfarin [Coumadin] 5 mg PO HS 12/02/15 10/18/22 History Fluticasone Propion/Salmeterol 1 puff INHALATION DIRECTED 10/18/22 10/18/22 History [Advair 250-50 Diskus] Furosemide [Lasix] 40 mg PO BID@0900,1600 10/18/22 10/18/22 History Losartan Potassium 100 mg PO HS 10/18/22 10/18/22 History Potassium Chloride ER [K-Dur 20] 10 meq PO HS 10/18/22 10/18/22 History Allergies Allergy/AdvReac Type Severity Reaction Status Date / Time citalopram [From Celexa] AdvReac Nausea & Verified 10/18/22 18:22 Vomiting Physical Exam Vitals: Vital Signs Temp Pulse Resp BP Pulse Ox FiO2 10/19/22 11:13 40 10/19/22 11:00 67 23 85/40 94 L 10/19/22 10:45 70 22 89/43 90 L 10/19/22 10:30 70 22 89/38 92 L 10/19/22 10:15 65 24 86/36 92 L 10/19/22 10:00 73 22 93/30 91 L 10/19/22 09:45 62 22 86/23 99 10/19/22 09:30 68 24 75/37 98 10/19/22 09:15 64 22 81/35 97 10/19/22 09:00 62 27 H 77/30 97 10/19/22 08:45 70 22 78/37 97 10/19/22 08:30 70 32 H 99/77 97 10/19/22 08:15 67 22 81/36 97 10/19/22 08:00 98.3 F 65 22 76/54 98 40 10/19/22 07:45 68 25 H 78/60 98 10/19/22 07:30 67 26 H 80/31 98 10/19/22 07:25 40 10/19/22 07:00 60 57 H 113/77 96 10/19/22 06:50 66 17 70/28 97 10/19/22 06:40 59 L 31 H 70/33 96 10/19/22 06:30 60 34 H 63/29 96 10/19/22 06:20 66 29 H 63/29 94 L 10/19/22 06:10 60 30 H 120/73 93 L 10/19/22 06:00 63 20 94/57 90 L 10/19/22 05:50 68 20 94/57 97 10/19/22 05:40 67 21 91/36 96 10/19/22 05:30 65 16 125/84 96 10/19/22 05:20 68 28 H 125/84 91 L 10/19/22 05:10 68 18 91/66 98 10/19/22 05:00 63 65 H 73/42 99 10/19/22 04:50 63 13 73/42 99 10/19/22 04:40 65 16 79/55 99 10/19/22 04:30 45 H 87/46 98 10/19/22 04:20 58 L 21 87/46 96 10/19/22 04:10 53 L 59 H 75/28 100 10/19/22 04:00 54 L 60 H 80/43 100 10/19/22 03:50 57 L 35 H 80/43 98 10/19/22 03:40 43 H 64/48 99 10/19/22 03:30 63 23 69/33 97 10/19/22 03:24 40 10/19/22 03:20 60 17 69/33 100 10/19/22 03:10 58 L 33 H 84/35 100 10/19/22 03:00 55 L 31 H 60/42 100 10/19/22 02:50 56 L 20 60/42 100 10/19/22 02:40 67 79 H 75/35 10/19/22 02:30 58 L 41 H 85/22 97 10/19/22 02:20 55 L 14 85/22 96 10/19/22 02:10 68 22 80/61 93 L 10/19/22 02:00 59 L 20 101/70 83 L 10/19/22 01:58 97.8 F 59 L 20 101/70 93 L 10/19/22 01:50 62 21 101/70 93 L 10/19/22 01:40 67 12 103/85 10/19/22 01:30 68 31 H 86/61 10/19/22 01:20 55 L 18 86/61 96 10/19/22 01:10 56 L 28 H 88/45 94 L 10/19/22 01:00 65 33 H 76/46 89 L 10/19/22 00:50 63 18 76/46 95 10/19/22 00:40 56 L 17 68/41 92 L 10/19/22 00:30 54 L 26 H 70/41 97 10/19/22 00:20 62 19 70/41 97 10/19/22 00:16 96.9 F L 64 18 70/41 98 10/19/22 00:10 59 L 26 H 73/37 97 10/19/22 00:00 58 L 25 H 80/43 97 10/18/22 23:58 58 L 5 L 80/43 96 10/18/22 23:56 97.4 F L 58 L 20 73/37 97 10/18/22 23:50 97.4 F L 57 L 13 80/43 94 L 10/18/22 23:46 97.6 F 71 17 80/43 10/18/22 23:40 69 19 80/45 93 L 10/18/22 23:30 75 19 78/43 78 L 10/18/22 23:20 68 93/61 45 10/18/22 23:17 123/104 10/18/22 22:12 57 L 10 L 77/42 97 10/18/22 21:38 59 L 15 63/37 98 10/18/22 21:14 63 9 L 75/36 93 L 10/18/22 21:09 45 10/18/22 19:55 65 17 76/43 96 10/18/22 19:49 45 10/18/22 19:00 96.9 F L 64 24 79/35 100 10/18/22 18:09 70 24 101/64 97 10/18/22 17:04 73 24 87/55 99 10/18/22 15:35 67 24 74/51 100 10/18/22 15:15 45 10/18/22 14:34 97.7 F 75 30 H 91/59 98 Intake and Output 10/18/22 10/19/22 10/19/22 22:59 06:59 14:59 Intake Total 928.284 275.585 Balance 928.284 275.585 Intake: IV 120 80 IV Fluid 120 80 Intake, IV Titration 188.284 195.585 Amount Norepinephrine 4 mg In 188.284 195.585 Sodium Chloride 0.9% 250 ml @ 0.03 MCG/KG/MIN 16. 077 mls/hr IV .[id number] [facility] Rx#:[id number] Blood Product 620 Rc As-1 Unit 310 [id number] Other: Voiding Method External Catheter Weight 140.659 kg Patient is awake, not in any acute distress Lethargic Examination of the heart S1 and S2, metallic valve is heard Examination lungs bilateral breath sounds are heard with decreased breath sounds at the bases Abdomen is soft morbidly obese Examination lower extremities 1+ bilaterally Results - Lab Results Most recent lab results Calcium 7.4 mg/dL (8.4-10.2) L 10/19/22 05:53 Magnesium 2.6 mg/dL (1.6-2.3) H 10/18/22 14:42 10/19/22 05:53 10/19/22 05:53 Assessment and Plan Assessment: 1. Acute kidney injury secondary to hypotension and shock pain, currently o liguric. 2. Hypotension from most likely septic shock from underlying UTI. Check urine cultures and start empiric antibiotics 3. History of CHF, systolic with ejection fraction 35% 4. Valvular heart disease status post metallic aortic valve replacement 5. Anemia with stool for occult blood positive with hemoglobin of 6.8 on initial admission status post packed RBCs transfusion. INR was 6.9 Plan: UA and urine culture Start empiric antibiotics 1 L fluid bolus Initial plan was to start dobutamine given patient's history of cardiomyopathy and chest x-ray suggestive of CHF, however patient has become increasingly hypotensive which appears to be more like septic shock. I will hold off on the dobutamine for now. Thank you for the consultation. We will continue to follow the patient with you during her hospitalization
[2022-10-19] MEDS ORDERED: SODIUM CHLORIDE 0.9% 1,000 ML IV ONE ×2 (12:00→15:19)
--- NOTE | 2022-10-19 13:57 | XR ---
EXAMINATION TYPE: XR chest 1V portable DATE OF EXAM: 10/19/2022 Comparison: 10/18/2022 Clinical History: 67-year-old female post central line insertion Findings: Left subclavian CVC tip in the upper right atrium region. Heart appears moderately enlarged. There is marked asymmetric elevation right hemidiaphragm. Patchy interstitial changes bilaterally. Median varun rnotomy wires and prosthetic cardiac valve. No sizable pleural effusion on the frontal view. Impression: 1. Left subclavian CVC tip in the expected upper right atrium region. 2. Moderate cardiomegaly and possible underlying pulmonary vascular congestion. 3. Ongoing marked asymmetric elevation right hemidiaphragm. If concern for hemidiaphragmatic paralysi s, a fluoroscopic sniff test could be performed.
--- NOTE | 2022-10-19 14:04 | PCN ---
PROCEDURE NOTE This is a Pulmonary/Critical Care procedure note. PROCEDURE: Left subclavian triple-lumen catheter. PREOPERATIVE DIAGNOSES: 1. Sepsis. 2. Fluid administration. 3. Administration of pressors. 4. Hypotension. POSTOPERATIVE DIAGNOSES: 1. Sepsis. 2. Fluid administration. 3. Administration of pressors. 4. Hypotension. CO-SURGEONS: 1. Dr. Galicia. 2. Manuel Fontenot, nurse practitioner. TRIPLE LUMEN CATHETER PLACEMENT: Indication: Hemodynamic monitoring/Intravenous access. A time-out was completed verifying correct patient, procedure, site, positioning, and implant(s) or special equipment if applicable. The patient was placed in a dependent position appropriate for triple lumen catheter placement based on the vein to be cannulated. The patient's left shoulder or left neck or left groin was prepped and draped in sterile fashion. 1% Lidocaine was used to anesthetize the surrounding skin area. A triple lumen 9F Cordis catheter was introduced into the left subclavian vein using Seldinger technique. The catheter was threaded smoothly over the guide wire and appropriate blood return was obtained. Each lumen of the catheter was evacuated of air and flushed with sterile saline. The catheter was then sutured in place to the skin and a sterile dressing applied. Perfusion to the extremity distal to the point of catheter insertion was checked and found to be adequate. There was good blood return from all 3 ports. There was no immediate complication. The catheter was sutured in place. A sterile dressing was applied by the nurse. The tip of the catheter was seen at the tip of the superior vena cava and right atrium. Again, no immediate complication. Chest x-ray was ordered. MMODL / IJN: [id number] /
--- NOTE | 2022-10-19 14:13 | PCN ---
PROCEDURE NOTE This is a Pulmonary/Critical Care procedure note. PROCEDURE: Right radial art line. PREOPERATIVE DIAGNOSES: Frequent blood draws and blood gas monitoring. POSTOPERATIVE DIAGNOSES: Frequent blood draws and blood gas monitoring. There was informed consent and universal timeout. ARTERIAL LINE PLACEMENT: Indications: Hemodynamic monitoring. A time-out was completed verifying correct patient, procedure, site, positioning, and implant(s) or special equipment if applicable. Clayton's test was performed to ensure adequate perfusion. The patient's right wrist or right groin was prepped and draped in sterile fashion. 1% Lidocaine was used to anesthetize the area. An 18G Arrow arterial line was introduced into the radial artery. The catheter was threaded over the guide wire and the needle was removed with appropriate pulsatile blood return. Blood loss was minimal. The catheter was then sutured in place to the skin and a sterile dressing applied. Perfusion to the extremity distal to the point of catheter insertion was checked and found to be adequate. The patient tolerated the procedure well and there were no complications. We used a right radial artery. There was no immediate complication. There was good blood return and waveform. The catheter was sutured in place. The sterile dressing was applied by the nurse. There was no immediate complication. MMODL / IJN: [id number] /
[2022-10-19] MEDS: NOREPINEPHRINE 8 MG in SODIUM CHLORIDE 0.9% 250 ML IV SCH ×2 (15:36→23:42)
--- NOTE | 2022-10-19 15:45 | P.HPIM ---
History of Present Illness H&P Date: 10/19/22 This a 67-year-old female with past medical history of Marfan syndrome, atrial fibrillation, heart failure, aortic aneurysm repair, right retinal vein occlusion with blindness and multiple other medical issues presented to the ER with worsening shortness of breath, increased lower extremity edema over the last week. Lactic acid 2. Venous blood gas reported pH 7.23 , pCO2 74, bicarb 30 .Chest x-ray reported chronic right basilar consolidation/atelectasis with elevated right hemidiaphragm, chronic mild pulmonary congestion and persistent cardiomegaly-unchanged from prior. EKG prior atrial fibrillation. Magnesium 2.6. Denies chest pain, palpitations. Denied any fever or chills. Anticoagulat ed on Coumadin, INR supratherapeutic on admission, greater than 10. Received vitamin K, currently 6.9. Hemoglobin 6.8, stool for occult blood negative, received 1 unit of packed RBCs, current hemoglobin 7.8. BUN 51, creatinine 2.81. Potassium 5.4. TSH 3.4, free T4 2.17 UA reporting many bacteria WBC clumps greater than 182 WBCs/leukocytes negative nitrates. Afebrile, normal WBC. Received fluid resuscitation yesterday, a dose of Lasix 20 IV push this morning. Currently BiPAP dependent, on Levophed. Review of Systems ROS Statement: Those systems with pertinent positive or pertinent negative responses have been documented in the HPI. ROS Other: All systems not noted in ROS Statement are negative. Past Medical History Past Medical History: Atrial Fibrillation, Heart Failure, Eye Disorder, Hypertension, Osteoarthritis (OA), Pneumonia, Thyroid Disorder Additional Past Medical History / Comment(s): History of Marfan syndrome with previous aortic valve replacement and repair of an ascending and descending aortic aneurysm, hypothyroidism, history of right eye blindness along with a right retinal eye vein occlusion, scoliosis of the spine. History of Any Multi-Drug Resistant Organisms: None Reported Past Surgical History: Cardiac Valve Replacement, Heart Catheterization, Hysterectomy, Orthopedic Surgery Additional Past Surgical History / Comment(s): Aortic valve replacement with placement of a mechanical valve, and upper aortic aneurysm repair 40 yrs ago at [facility], descending aortic repair [facility], bilateral cataract removal with lens, R knee ACL repair. Past Anesthesia/Blood Transfusion Reactions: No Reported Reaction Additional Past Anesthesia/Blood Transfusion Reaction / Comment(s): Pt. believes she has received blood in the past without reaction. Past Psychological History: No Psychological Hx Reported Additional Psychological History / Comment(s): Pt lives at home and her son, daughter in law and grandchild live with her. She uses a cane/walker to ambu late. She drives. She is independent. Smoking Status: Never smoker Past Alcohol Use History: Occasional Past Drug Use History: None Reported - Past Family History Father Family Medical History: Unable to Obtain Additional Family Medical History / Comment(s): Father is . Pt unable to give history-becomes very tearful speaking of parents. Mother Family Medical History: Unable to Obtain Additional Family Medical History / Comment(s): Mother is . Medications and Allergies Home Medications Medication Instructions Recorded Confirmed Type Metoprolol Succinate [Toprol XL] 100 mg PO DAILY 12/01/15 10/18/22 History Levothyroxine Sodium [Synthroid] 150 mcg PO DAILY 12/02/15 10/18/22 History Warfarin [Coumadin] 5 mg PO HS 12/02/15 10/18/22 History Fluticasone Propion/Salmeterol 1 puff INHALATION DIRECTED 10/18/22 10/18/22 History [Advair 250-50 Diskus] Furosemide [Lasix] 40 mg PO BID@0900,1600 10/18/22 10/18/22 History Losartan Potassium 100 mg PO HS 10/18/22 10/18/22 History Potassium Chloride ER [K-Dur 20] 10 meq PO HS 10/18/22 10/18/22 History Allergies Allergy/AdvReac Type Severity Reaction Status Date / Time citalopram [From Celexa] AdvReac Nausea & Verified 10/18/22 18:22 Vomiting Physical Exam Vitals: Vital Signs Temp Pulse Resp BP Pulse Ox FiO2 10/19/22 07:25 40 10/19/22 07:00 60 57 H 113/77 96 10/19/22 06:50 66 17 70/28 97 10/19/22 06:40 59 L 31 H 70/33 96 10/19/22 06:30 60 34 H 63/29 96 10/19/22 06:20 66 29 H 63/29 94 L 10/19/22 06:10 60 30 H 120/73 93 L 10/19/22 06:00 63 20 94/57 90 L 10/19/22 05:50 68 20 94/57 97 10/19/22 05:40 67 21 91/36 96 10/19/22 05:30 65 16 125/84 96 10/19/22 05:20 68 28 H 125/84 91 L 10/19/22 05:10 68 18 91/66 98 10/19/22 05:00 63 65 H 73/42 99 10/19/22 04:50 63 13 73/42 99 10/19/22 04:40 65 16 79/55 99 10/19/22 04:30 45 H 87/46 98 10/19/22 04:20 58 L 21 87/46 96 10/19/22 04:10 53 L 59 H 75/28 100 10/19/22 04:00 54 L 60 H 80/43 100 10/19/22 03:50 57 L 35 H 80/43 98 10/19/22 03:40 43 H 64/48 99 10/19/22 03:30 63 23 69/33 97 10/19/22 03:24 40 10/19/22 03:20 60 17 69/33 100 10/19/22 03:10 58 L 33 H 84/35 100 10/19/22 03:00 55 L 31 H 60/42 100 10/19/22 02:50 56 L 20 60/42 100 10/19/22 02:40 67 79 H 75/35 10/19/22 02:30 58 L 41 H 85/22 97 10/19/22 02:20 55 L 14 85/22 96 10/19/22 02:10 68 22 80/61 93 L 10/19/22 02:00 59 L 20 101/70 83 L 10/19/22 01:58 97.8 F 59 L 20 101/70 93 L 10/19/22 01:50 62 21 101/70 93 L 10/19/22 01:40 67 12 103/85 10/19/22 01:30 68 31 H 86/61 10/19/22 01:20 55 L 18 86/61 96 10/19/22 01:10 56 L 28 H 88/45 94 L 10/19/22 01:00 65 33 H 76/46 89 L 10/19/22 00:50 63 18 76/46 95 10/19/22 00:40 56 L 17 68/41 92 L 10/19/22 00:30 54 L 26 H 70/41 97 10/19/22 00:20 62 19 70/41 97 10/19/22 00:16 96.9 F L 64 18 70/41 98 10/19/22 00:10 59 L 26 H 73/37 97 10/19/22 00:00 58 L 25 H 80/43 97 10/18/22 23:58 58 L 5 L 80/43 96 10/18/22 23:56 97.4 F L 58 L 20 73/37 97 10/18/22 23:50 97.4 F L 57 L 13 80/43 94 L 10/18/22 23:46 97.6 F 71 17 80/43 10/18/22 23:40 69 19 80/45 93 L 10/18/22 23:30 75 19 78/43 78 L 10/18/22 23:20 68 93/61 45 10/18/22 23:17 123/104 10/18/22 22:12 57 L 10 L 77/42 97 10/18/22 21:38 59 L 15 63/37 98 10/18/22 21:14 63 9 L 75/36 93 L 10/18/22 21:09 45 10/18/22 19:55 65 17 76/43 96 10/18/22 19:49 45 10/18/22 19:00 96.9 F L 64 24 79/35 100 10/18/22 18:09 70 24 101/64 97 10/18/22 17:04 73 24 87/55 99 10/18/22 15:35 67 24 74/51 100 10/18/22 15:15 45 10/18/22 14:34 97.7 F 75 30 H 91/59 98 Intake and Output 10/18/22 10/19/22 10/19/22 22:59 06:59 14:59 Intake Total 928.284 20 Balance 928.284 20 Intake: IV 120 20 IV Fluid 120 20 Intake, IV Titration 188.284 Amount Norepinephrine 4 mg In 188.284 Sodium Chloride 0.9% 250 ml @ 0.03 MCG/KG/MIN 16. 077 mls/hr IV .[id number] [facility] Rx#:[id number] Blood Product 620 Rc As-1 Unit 310 [id number] Other: Weight 140.659 kg - Exam GENERAL: This is a -67-year-old , sitting up in bed, wearing BiPAP ,Pleasant and cooperative. HEENT: Head is atraumatic, normocephalic. Pupils are equal, round, and reactive to light. Sclerae anicteric. Conjunctivae are clear. Neck: supple, no JVD. RESPIRATORY: diminished breath sounds, bibasilar crackles CARDIOVASCULAR: Irregular rate and rhythm. S1 and S2 noted. Positive click. Systolic murmur. GASTROINTESTINAL: Soft, No distention noted. Diffuse abdominal pain. Normal active bowel sounds auscultated x 4 quadrants. INTEGUMENTARY: No cyanosis. No jaundice. No rashes noted. No cellulitis noted. EXTREMITIES: 2+ peripheral pulses. Positive peripheral edema. NEUROLOGIC: Cranial nerves II-XII intact. PSYCHIATRIC: Awake, alert, and oriented X 3. Appropriate affect. Results CBC & Chem 7: 10/19/22 05:53 10/19/22 05:53 Labs: Abnormal Lab Results - Last 24 Hours (Table) 10/18/22 10/18/22 10/18/22 Range/Units 14:42 14:42 14:42 RBC 2.75 L (3.80-5.40) m/uL Hgb 7.4 L (11.4-16.0) gm/dL Hct 23.8 L (34.0-46.0) % MCHC (31.0-37.0) g/dL RDW 17.0 H (11.5-15.5) % Lymphocytes # 0.6 L (1.0-4.8) k/uL PT >130.0 H (9.0-12.0) sec INR >10.0 H* (<1.2) APTT 58.2 H (22.0-30.0) sec VBG pH (7.31-7.41) VBG pCO2 (37-51) mmHg VBG HCO3 (24-28) mmol/L Sodium 135 L (137-145) mmol/L Potassium (3.5-5.1) mmol/L BUN 51 H (7-17) mg/dL Creatinine 2.36 H (0.52-1.04) mg/dL Glucose 105 H (74-99) mg/dL Calcium 7.9 L (8.4-10.2) mg/dL Magnesium 2.6 H (1.6-2.3) mg/dL Albumin 3.4 L (3.5-5.0) g/dL TSH (0.465-4.680) mIU/L Crossmatch 10/18/22 10/18/22 10/18/22 Range/Units 14:42 16:28 19:08 RBC 2.47 L (3.80-5.40) m/uL Hgb 6.8 L* (11.4-16.0) gm/dL Hct 21.5 L (34.0-46.0) % MCHC (31.0-37.0) g/dL RDW 17.0 H (11.5-15.5) % Lymphocytes # 0.6 L (1.0-4.8) k/uL PT (9.0-12.0) sec INR (<1.2) APTT (22.0-30.0) sec VBG pH 7.23 L (7.31-7.41) VBG pCO2 74 H* (37-51) mmHg VBG HCO3 30 H (24-28) mmol/L Sodium (137-145) mmol/L Potassium (3.5-5.1) mmol/L BUN (7-17) mg/dL Creatinine (0.52-1.04) mg/dL Glucose (74-99) mg/dL Calcium (8.4-10.2) mg/dL Magnesium (1.6-2.3) mg/dL Albumin (3.5-5.0) g/dL TSH 9.200 H (0.465-4.680) mIU/L Crossmatch 10/18/22 10/19/22 10/19/22 Range/Units 21:42 05:53 05:53 RBC 2.88 L (3.80-5.40) m/uL Hgb 7.8 L (11.4-16.0) gm/dL Hct 25.8 L (34.0-46.0) % MCHC 30.4 L (31.0-37.0) g/dL RDW 17.0 H (11.5-15.5) % Lymphocytes # 0.7 L (1.0-4.8) k/uL PT (9.0-12.0) sec INR (<1.2) APTT (22.0-30.0) sec VBG pH (7.31-7.41) VBG pCO2 (37-51) mmHg VBG HCO3 (24-28) mmol/L Sodium 135 L (137-145) mmol/L Potassium 5.4 H (3.5-5.1) mmol/L BUN 51 H (7-17) mg/dL Creatinine 2.81 H (0.52-1.04) mg/dL Glucose 111 H (74-99) mg/dL Calcium 7.4 L (8.4-10.2) mg/dL Magnesium (1.6-2.3) mg/dL Albumin (3.5-5.0) g/dL TSH (0.465-4.680) mIU/L Crossmatch See Detail Thrombosis Risk Factor Assmnt - Choose All That Apply Each Factor Represents 1 point: Obesity (BMI >25), Swollen legs (current) Each Risk Factor Represents 2 Points: Age 61-74 years Thrombosis Risk Factor Assessment Total Risk Factor Score: 4 Thrombosis Risk Factor Assessment Level: Moderate Risk Assessment and Plan Assessment: Sepsis, septic shock present on admission Hypotension, multifactorial secondary to the above and to anemia, pressor dependent Acute CHF exacerbation, systolic dysfunction Cardiomyopathy Acute hypoxic respiratory failure secondary to the above, BiPAP dependent Acute anemia status post 1 unit of packed RBCs Hypercoagulopathy, INR on admission greater than 10, status post vitamin K Acute renal failure secondary to hypotension Hyperkalemia secondary to the above Possible acute UTI, cultures pending Atrial fibrillation, chronic Marfan syndrome Aortic valve replacement, mechanical valve on long-term anticoagulation, supratherapeutic Ascending aortic aneurysm repair Hypertension Hyperlipidemia Hypothyroidism, subtherapeutic Plan: Continue on current medication regime ,monitoring and symptomatic treatment. ICU management as per building code administrator. IV fluid hydration, pressor support, empiric antibiotics. Echo pending. IV Synthroid. Pro-calcitonin pending. Multiple consults following. Prognosis guarded given multiple complex medical issues. The impression and plan of care has been dictated as directed. : I performed a history and examination of this patient, discussed the same with the dictator. I agree with the dictator's note ,documented as a scribe. Any additional findings or plans will be noted.
--- NOTE | 2022-10-19 16:17 | CA ---
Transthoracic Echo Report Name: Jeanne Allison Age: 67 Gender: F : 1955 Exam Date: 10/19/2022 13:17 Exam Location: [place] [facility] Ht (in): 70 Wt (lb): 310 Ordering Physician: Nitish Walton MD ([id number]) Attending/Referring Phys: Technology Specialist Aidee Davila RDCS Procedure CPT: Indications: chf Cardiac Hx: Technical Quality: Technically difficult study Contrast 1: Lumason Total Dose (mL): 4 Contrast 2: Total Dose (mL): MEASUREMENTS (Male / Female) Normal Values 2D ECHO LV Diastolic Diameter PLAX 6.1 cm 4.2 - 5.9 / 3.9 - 5.3 cm LV Systolic Diameter PLAX 4.2 cm IVS Diastolic Thickness 1.3 cm 0.6 - 1.0 / 0.6 - 0.9 cm LVPW Diastolic Thickness 1.4 cm 0.6 - 1.0 / 0.6 - 0.9 cm LV Relative Wall Thickness 0.4 RV Internal Dim ED PLAX 5.2 cm DOPPLER AV Peak Velocity 288.7 cm/s AV Peak Gradient 33.3 mmHg AV Mean Velocity 212.6 cm/s AV Mean Gradient 19.6 mmHg AV Velocity Time Integral 58.3 cm LVOT Peak Velocity 286.7 cm/s LVOT Peak Gradient 32.9 mmHg LVOT Velocity Time Integral 60.6 cm TR Peak Velocity 439.2 cm/s TR Peak Gradient 77.1 mmHg Right Ventricular Systolic Press 81.0 mmHg FINDINGS Left Ventricle Mildly increased septal wall thickness. Moderately increased posterior wall thickness. Moderately increased left ventricular diastolic diameter. Moderately reduced global left ventricular systolic function. Left ventricular ejection fraction is estimated at 30-35 %. Right Ventricle Severe right ventricular dilatation. Severe pulmonary hypertension. Right ventricular systolic pressure estimated at 81 mm hg. Right Atrium Severe right atrial dilatation. Left Atrium Moderately increased left atrial area. Mitral Valve Moderate mitral regurgitation. Aortic Valve Mild prosthetic aortic valve regurgitation. Mechanical aortic valve with a peak velocity of 2.8 m/s, peak gradient 33 mmHg, mean gradient 20 mmHg. Tricuspid Valve Severe tricuspid regurgitation. Pulmonic Valve Trace to mild pulmonic regurgitation. Pericardium No pericardial effusion. Aorta Normal size aortic root and proximal ascending aorta. CONCLUSIONS LVH with reduced LV systolic function about 35% Severe RV and RA enlargement Prosthetic aortic valve with mild stenosis and mild aortic regurgitation Previewed by: Dr. Pacheco Barber MD (Electronically Signed) Final Date: 19 October 2022 16:16
[2022-10-19] MEDS ORDERED: SODIUM CHLORIDE 0.9% 500 ML 500 ML IV ONE (22:53)
[2022-10-19] MEDS: SODIUM CHLORIDE 0.9% 1,000 ML IV SCH (23:28)
[2022-10-20] MEDS ORDERED: FUROSEMIDE 10 MG/ML 4 ML VIAL IV STA (00:10)
[2022-10-20 04:08] LABS: Anisocytosis Slight; HCT 22.5 % (34.0-46.0); Hypochromasia Marked; MCH 26.9 pg (25.0-35.0); MCHC 29.9 g/dL (31.0-37.0); Mean Platelet Volume 9.5; Platelet Count 201 k/uL (150-450); Poikilocytosis Slight; RBC 2.51 m/uL (3.80-5.40); RDW 17.5 % (11.5-15.5); WBC 13.2 k/uL (3.8-10.6)
[2022-10-20 04:16] LABS: INR 4.6 (<1.2); Prothrombin Time 45.1 sec (9.0-12.0)
[2022-10-20 04:33] LABS: Calcium 7.3 mg/dL (8.4-10.2); Potassium 5.5 mmol/L (3.5-5.1); Total Bilirubin 0.8 mg/dL (0.2-1.3); Total Protein 5.7 g/dL (6.3-8.2)
[2022-10-20 04:45] LABS: HGB 6.7 gm/dL (11.4-16.0)
[2022-10-20] MEDS: VASOPRESSIN 20 UNIT in SODIUM CHLORIDE 0.9% 50 ML IV SCH ×2 (05:37→14:29)
[2022-10-20] MEDS ORDERED: DEXTROSE 50% SYRINGE 50 ML IVP STA (05:57)
[2022-10-20] MEDS ORDERED: INSULIN REGULAR 100 UNIT/ML VIAL (IV) IV ONE (06:00)
[2022-10-20] MEDS: NOREPINEPHRINE 8 MG in SODIUM CHLORIDE 0.9% 250 ML IV SCH ×2 (06:44→11:38)
--- NOTE | 2022-10-20 07:30 | P.PN ---
Subjective Progress Note Date: 10/20/22 Principal diagnosis: Valvular heart disease The patient is a 67-year-old female patient with a past medical history significant for Marfan syndrome as well as valvular heart disease status post aortic valve replacement using mechanical valve 45 years ago along with ascending aortic aneurysm repair at that point and also history of cardiomyopathy as well as multiple comorbid conditions who presented to the hospital complaining of increasing shortness of breath. For the last week the patient has been experiencing progressive exertional dyspnea associated with progressive bilateral lower extremities edema and weight gain. No symptoms of chest pain or chest discomfort and no dizziness or lightheadedness and no feeling of heart racing or fluttering or presyncope or syncope. She is known to have cardiomyopathy based on echo was performed in 2018 showing an EF around 35% with normally functioning mechanical aortic valve prosthesis. She stated that she has been compliant with her medications as well as has been compliant with her diet. She was found to be in heart failure and also she was found to be in acute renal failure with her creatinine is more than 2 and her baseline creatinine is within normal limits. Beside that she was anemic with a hemoglobin of 6.8 and she received one unit of packed RBC. Also she was hypotensive and currently she is on small doses of norepinephrine. When she was seen and examined this morning she seems to be in fluid overload. I'm going to give the patient 20 mg of Lasix IV once and also I am going to consult nephrology service for further evaluation of the acute renal failure. Critical care service is on the case as well. Clearly the patient is hypoxic when she presented and continues to be hypoxic at this point. No indication that she is septic. We are also going to obtain an echocardiogram to evaluate the ejection fraction at this point and also to evaluate the aortic valve prosthesis. Her INR was supratherapeutic when she presented to the hospital. October 202022 The patient was seen and evaluated this morning. Unfortunately she is not doing well. She continues to be on vasopressors and currently she is a norepinephrine as well as she is on vasopressors. Beside that creatinine remains elevated above 2 and she has not been making urine in spite of Christiano with Lasix IV. Nephrology is on the case. Potassium is elevated. That has been addressed. She has been throwing rectally intradermal PVCs and runs of nonsustained ventricular tachycardia. The echo showed impaired LV function was EF around 30% with normally functioning mechanical valve prosthesis in aortic position. Beside that urine analysis revealed UTI and currently she is on antibiotic. Overall the patient is not doing well from the critical care standpoint of view. Beside that her hemoglobin was low and she received 2 units of packed RBC. On examination she continues to have diminished breathing sounds bilaterally and severe bilateral lower extremities edema and clearly is hypervolemic Objective - Vital Signs Vital signs: Vital Signs Temp 96.9 F L 10/20/22 07:10 Pulse 94 10/20/22 07:10 Resp 16 10/20/22 07:10 BP 105/42 10/20/22 07:10 Pulse Ox 86 L 10/20/22 07:00 FiO2 60 10/20/22 04:00 Intake & Output 10/19/22 10/20/22 10/20/22 18:59 06:59 18:59 Intake Total 2780.608 1434.165 101.991 Output Total 275 205 10 Balance 2505.608 1229.165 91.991 Weight 142 kg Intake: IV 2220 660 75 IV Fluid 1220 660 75 Sodium Chloride 0.9% 1, 1000 000 ml @ 999 mls/hr IV . Q1H1M [facility] Rx#:[id number] Intake, IV Titration 560.608 524.165 26.991 Amount Norepinephrine 4 mg In 560.608 Sodium Chloride 0.9% 250 ml @ 0.03 MCG/KG/MIN 16. 077 mls/hr IV .[id number] [facility] Rx#:[id number] Norepinephrine 8 mg In 524.165 26.991 Sodium Chloride 0.9% 250 ml @ 0.03 MCG/KG/MIN 8. 165 mls/hr IV .Q24H [facility] Rx#:[id number] Oral 250 Blood Product 0 Unit 0 Output: Urine 275 205 10 Other: Voiding Method Indwelling Catheter Indwelling Catheter ABP, PAP, CO, CI - Last Documented Arterial Blood Pressure 92/37 - Constitutional General appearance: Present: no acute distress - Respiratory Respiratory: bilateral: diminished - Cardiovascular Rhythm: regular Abnormal Heart Sounds: Present: systolic murmur - Labs CBC & Chem 7: 10/20/22 03:55 10/20/22 03:55 Labs: Abnormal Lab Results - Last 24 Hours (Table) 10/18/22 10/19/22 10/19/22 Range/Units 21:42 08:13 11:16 WBC (3.8-10.6) k/uL RBC (3.80-5.40) m/uL Hgb (11.4-16.0) gm/dL Hct (34.0-46.0) % MCHC (31.0-37.0) g/dL RDW (11.5-15.5) % PT 68.8 H (9.0-12.0) sec INR 6.9 H* (<1.2) Sodium (137-145) mmol/L Potassium (3.5-5.1) mmol/L BUN (7-17) mg/dL Creatinine (0.52-1.04) mg/dL Glucose (74-99) mg/dL Calcium (8.4-10.2) mg/dL Total Protein (6.3-8.2) g/dL Albumin (3.5-5.0) g/dL Urine Appearance Turbid H (Clear) Urine Protein 3+ H (Negative) Urine Blood Moderate H (Negative) Ur Leukocyte Esterase Large H (Negative) Urine WBC >182 H (0-5) /hpf Urine WBC Clumps Many H (None) /hpf Urine Bacteria Many H (None) /hpf Crossmatch See Detail 10/20/22 10/20/22 10/20/22 Range/Units 03:55 03:55 03:55 WBC 13.2 H (3.8-10.6) k/uL RBC 2.51 L (3.80-5.40) m/uL Hgb 6.7 L* (11.4-16.0) gm/dL Hct 22.5 L (34.0-46.0) % MCHC 29.9 L (31.0-37.0) g/dL RDW 17.5 H (11.5-15.5) % PT 45.1 H (9.0-12.0) sec INR 4.6 H (<1.2) Sodium 136 L (137-145) mmol/L Potassium 5.5 H (3.5-5.1) mmol/L BUN 50 H (7-17) mg/dL Creatinine 2.44 H (0.52-1.04) mg/dL Glucose 126 H (74-99) mg/dL Calcium 7.3 L (8.4-10.2) mg/dL Total Protein 5.7 L (6.3-8.2) g/dL Albumin 3.0 L (3.5-5.0) g/dL Urine Appearance (Clear) Urine Protein (Negative) Urine Blood (Negative) Ur Leukocyte Esterase (Negative) Urine WBC (0-5) /hpf Urine WBC Clumps (None) /hpf Urine Bacteria (None) /hpf Crossmatch Microbiology - Last 24 Hours (Table) 10/19/22 11:16 Urine Culture - Preliminary Urine,Voided Assessment and Plan Assessment: Assessment Congestive heart failure exacerbation related to heart failure with reduced ejection fraction Severe cardiomyopathy with EF between 30-35% Valvular heart disease status post aortic valve replacement using mechanical valve Status post ascending aortic repair Acute renal failure Septic shock Anemia required blood transfusion Multiple comorbid conditions Plan Avoid any nephrotoxic medication Continue support the blood pressure was vasopressors Consider infectious disease consult. Consider ruling out infective endocarditis Nephrology service is on the case regarding the acute renal failure Monitor the hemoglobin and consider blood transfusion hemoglobin dropped below 7 Follow-up with the patient Overall the patient is not doing well and the prognosis is poor
[2022-10-20] MEDS: LEVOTHYROXINE IVP 100 MCG/5 ML VIAL IV SCH (08:25)
--- NOTE | 2022-10-20 10:36 | P.PN ---
Subjective Progress Note Date: 10/20/22 This is a pleasant 67-year-old female patient with a known history of atrial fibrillation anticoagulation with warfarin, obesity, congestive heart failure, hypertension, hypothyroidism, right retinal vein occlusion with blindness. She also has a history of Marfan syndrome and has had aortic valve replacement with mechanical valve and repair an ascending aortic aneurysm 45 years ago at [facility]. She had a descending aortic aneurysm repair here years ago. Presented here to the emergency room yesterday with complaints of increasing shortness of breath, lower extremity edema. Last echocardiogram from here in 2017 revealed moderately impaired left ventricular systolic function with ejection fraction 35-40%. Normally functioning mechanical prosthetic valve. Chest x-ray reveals a chronic right basilar consolidation/atelectasis and elevation of the right hemidiaphragm with chronic mild pulmonary congestion and persistent cardiomegaly. Unchanged compared to a previous of April 2022. EKG reveals atrial fibrillation. Presenting INR greater than 10. Initial hemoglobin 6.8. She did receive 1 unit of packed red blood cells and current hemoglobin 7.8. White count 9.2. Platelets 197. INR 6.9 following a dose of vitamin K. Sodium 135. Potassium 5.4. BUN 51. Creatinine 2.81. Glucose 111. Cortisol level 28. TSH 9.2. Free T4 2 0.17. She is seen today in consultation in the intensive care unit. She is currently on BiPAP 10/5 and 40% FiO2. She has normal saline at 20 mL per hour. She is also requiring norepinephrine at 14 mcg/m. Shona blood gas revealed a bicarb of 30, pCO2 of 74 and a pH of 7.23. She did receive 1.5 L of fluid resuscitation yesterday. She was given Lasix 20 mg IVP 1 this a.m. Is awake and alert. Requesting to be off the BiPAP. We'll transition her to nasal cannula as tolerated The patient is seen today 10/20/2022 in follow-up in the intensive care unit. She is currently resting in bed. She remains on BiPAP 10/5 and 60% FiO2 to maintain O2 saturations in the low 90s. She has normal saline at 75 miles per hour. She is requiring norepinephrine currently at 48 mcg/m, vasopressin at 0.04 units per minute. She did require 1 unit of packed red blood cells this morning for a hemoglobin of 6.7. Her INR is down to 4.6 today. White count 13.2. Platelets 201. Sodium 136. Potassium 5.3. BUN 50. Creatinine 2.44. Glucose 126. Urine culture pending. She's currently on ceftriaxone. She received Lasix 40 mg IVP 1. She was treated for hyperkalemia of 5.5 earlier. She has been having arrhythmias in the form of frequent PVCs and bigeminy. Echocardiogram reveals moderate global left ventricular systolic impairment with ejection fraction of 30-35%. There is significant dilatation of the right ventricle with severe pulmonary hypertension and RVSP of 81 mmHg. Chest x-ray reveals moderate cardiomegaly and possible underlying pulmonary vascular congestion. Ongoing marketed asymmetric elevation of the right hemidiaphragm. Objective - Vital Signs Vital signs: Vital Signs Temp 97.7 F 10/20/22 09:30 Pulse 101 H 10/20/22 10:15 Resp 20 10/20/22 10:15 BP 97/65 10/20/22 10:00 Pulse Ox 98 10/20/22 10:15 FiO2 60 10/20/22 08:00 Intake & Output 10/19/22 10/20/22 10/20/22 18:59 06:59 18:59 Intake Total 2780.608 1434.165 928.425 Output Total 275 205 65 Balance 2505.608 1229.165 863.425 Weight 142 kg Intake: IV 2220 660 350 IV Fluid 1220 660 300 Sodium Chloride 0.9% 1, 1000 000 ml @ 999 mls/hr IV . Q1H1M [facility] Rx#:[id number] cefTRIAXone 1 gm In 50 Sodium Chloride 0.9% 50 ml @ 100 mls/hr IVPB Q24HR [facility] Rx#:[id number] Intake, IV Titration 560.608 524.165 268.425 Amount Norepinephrine 4 mg In 560.608 Sodium Chloride 0.9% 250 ml @ 0.03 MCG/KG/MIN 16. 077 mls/hr IV .[id number] [facility] Rx#:[id number] Norepinephrine 8 mg In 524.165 249.835 Sodium Chloride 0.9% 250 ml @ 0.03 MCG/KG/MIN 8. 165 mls/hr IV .Q24H [facility] Rx#:[id number] Vasopressin 20 unit In 18.59 Sodium Chloride 0.9% 50 ml @ 0.03 UNITS/MIN 4.59 mls/hr IV .Q11H7M [facility] Rx# :[id number] Oral 250 Blood Product 0 310 Rc As-1 Unit 0 310 [id number] Output: Urine 275 205 65 Other: Voiding Method Indwelling Catheter Indwelling Catheter ABP, PAP, CO, CI - Last Documented Arterial Blood Pressure 116/52 - Exam GENERAL EXAM: Alert, alert, 67-year-old female, on BiPAP 10/5 and 60% FiO2, fairly comfortable in no apparent distress. HEAD: Features of Marfan syndrome. EYES: Normal reaction of pupils, equal size. NOSE: Clear with pink turbinates. THROAT: No erythema or exudates. NECK: No masses, no JVD. CHEST: No chest wall deformity. LUNGS: Equal air entry with crackles in the bilateral bases. CVS: S1 and S2 normal with no audible murmur, prosthetic click heard, irregular rhythm. ABDOMEN: No hepatosplenomegaly, normal bowel sounds, no guarding or rigidity. SPINE: Noted scoliosis SKIN: No rashes CENTRAL NERVOUS SYSTEM: No focal deficits, tone is normal in all 4 extremities. EXTREMITIES: There is 1+ peripheral edema. No clubbing, no cyanosis. Peripheral pulses are intact. - Labs CBC & Chem 7: 10/20/22 03:55 10/20/22 09:05 Labs: Abnormal Lab Results - Last 24 Hours (Table) 10/18/22 10/19/22 10/20/22 Range/Units 21:42 11:16 03:55 WBC 13.2 H (3.8-10.6) k/uL RBC 2.51 L (3.80-5.40) m/uL Hgb 6.7 L* (11.4-16.0) gm/dL Hct 22.5 L (34.0-46.0) % MCHC 29.9 L (31.0-37.0) g/dL RDW 17.5 H (11.5-15.5) % PT (9.0-12.0) sec INR (<1.2) Sodium (137-145) mmol/L Potassium (3.5-5.1) mmol/L BUN (7-17) mg/dL Creatinine (0.52-1.04) mg/dL Glucose (74-99) mg/dL Calcium (8.4-10.2) mg/dL Magnesium (1.6-2.3) mg/dL Total Protein (6.3-8.2) g/dL Albumin (3.5-5.0) g/dL Urine Appearance Turbid H (Clear) Urine Protein 3+ H (Negative) Urine Blood Moderate H (Negative) Ur Leukocyte Esterase Large H (Negative) Urine WBC >182 H (0-5) /hpf Urine WBC Clumps Many H (None) /hpf Urine Bacteria Many H (None) /hpf Crossmatch See Detail 10/20/22 10/20/22 10/20/22 Range/Units 03:55 03:55 03:55 WBC (3.8-10.6) k/uL RBC (3.80-5.40) m/uL Hgb (11.4-16.0) gm/dL Hct (34.0-46.0) % MCHC (31.0-37.0) g/dL RDW (11.5-15.5) % PT 45.1 H (9.0-12.0) sec INR 4.6 H (<1.2) Sodium 136 L (137-145) mmol/L Potassium 5.5 H (3.5-5.1) mmol/L BUN 50 H (7-17) mg/dL Creatinine 2.44 H (0.52-1.04) mg/dL Glucose 126 H (74-99) mg/dL Calcium 7.3 L (8.4-10.2) mg/dL Magnesium 2.4 H (1.6-2.3) mg/dL Total Protein 5.7 L (6.3-8.2) g/dL Albumin 3.0 L (3.5-5.0) g/dL Urine Appearance (Clear) Urine Protein (Negative) Urine Blood (Negative) Ur Leukocyte Esterase (Negative) Urine WBC (0-5) /hpf Urine WBC Clumps (None) /hpf Urine Bacteria (None) /hpf Crossmatch 10/20/22 Range/Units 09:05 WBC (3.8-10.6) k/uL RBC (3.80-5.40) m/uL Hgb (11.4-16.0) gm/dL Hct (34.0-46.0) % MCHC (31.0-37.0) g/dL RDW (11.5-15.5) % PT (9.0-12.0) sec INR (<1.2) Sodium (137-145) mmol/L Potassium 5.3 H (3.5-5.1) mmol/L BUN (7-17) mg/dL Creatinine (0.52-1.04) mg/dL Glucose (74-99) mg/dL Calcium (8.4-10.2) mg/dL Magnesium (1.6-2.3) mg/dL Total Protein (6.3-8.2) g/dL Albumin (3.5-5.0) g/dL Urine Appearance (Clear) Urine Protein (Negative) Urine Blood (Negative) Ur Leukocyte Esterase (Negative) Urine WBC (0-5) /hpf Urine WBC Clumps (None) /hpf Urine Bacteria (None) /hpf Crossmatch Microbiology - Last 24 Hours (Table) 10/19/22 11:16 Urine Culture - Preliminary Urine,Voided Assessment and Plan Assessment: Acute hypoxemic respiratory failure secondary to acute exacerbation of systolic congestive heart failure and echocardiogram reveals moderately reduced global left ventricular systolic function with estimated ejection fraction 30-35%. Severe right ventricular dilatation with severe pulmonary hypertension with an RVSP of 81 mmHg. Mild prosthetic aortic valve regurgitation. Acute hypercapnic respiratory failure secondary to above currently on BiPAP 10/5 and 60% FiO2 Acute anemia with a hemoglobin of 6.7, status post 2 unit of packed red blood cells follow-up hemoglobin pending Hypercoagulopathy with presenting INR greater than 10, received vitamin K, current INR 4.6 Acute renal failure, current creatinine 2.44, GFR 20 Hyperkalemia secondary to above Hypothyroidism, subtherapeutic, initiated Synthroid 100 g IV daily History of Marfan syndrome, has been following at the [facility] History of aortic valve replacement and repair of ascending aortic aneurysm nearly 45 years ago at [facility] History of repair of descending aortic aneurysm at this facility years ago History of right retinal vein occlusion with blindness Osteoarthritis Hypertension Plan: The patient was seen and evaluated Chest x-ray, medications and labs reviewed The patient is requiring a significant amount of pressor support May require transfer to a tertiary care center She has been following at the [facility], no beds available Pro-calcitonin still pending Urine culture pending Added ceftriaxone Was given Lasix 20 mg IVP 1 Received a second unit of packed red blood cells for hemoglobin of 6.7 today We'll continue to monitor her closely in the ICU Prognosis is guarded We'll continue to follow I have personally seen and examined the patient, performed the documentation and the assessment and plan as written. Number of minutes spent on the visit: 10.
[2022-10-20] MEDS ORDERED: FUROSEMIDE 10 MG/ML 10 ML VIAL IV STA (10:58)
--- NOTE | 2022-10-20 10:58 | P.PN ---
Subjective Patient is seen for follow-up for acute kidney injury. She was admitted to the hospital with weakness and abdominal pain. History of cardiomyopathy and chronic systolic CHF along with aortic valve replacement with metallic valve. Patient became significantly hypotensive yesterday requiring levo fed and vasopressin. Urine was noted to be milky and patient has been started on Rocephin. She received 2 L of fluid bolus and is currently maintained on saline at 75 mL an hour. Urine output at about 10-20 mL per hour. No response to 40 mg of Lasix IV. Hemoglobin was 6.9 and patient has been transfused packed RBCs. No active bleeding noted currently. Stool for occult blood negative. There is concern for underlying endocarditis with history of metallic valve Objective - Vital Signs Vital signs: Vital Signs Temp 97.7 F 10/20/22 09:30 Pulse 101 H 10/20/22 10:15 Resp 20 10/20/22 10:15 BP 97/65 10/20/22 10:00 Pulse Ox 98 10/20/22 10:15 FiO2 60 10/20/22 08:00 Intake & Output 10/19/22 10/20/22 10/20/22 18:59 06:59 18:59 Intake Total 2780.608 1434.165 928.425 Output Total 275 205 65 Balance 2505.608 1229.165 863.425 Weight 142 kg Intake: IV 2220 660 350 IV Fluid 1220 660 300 Sodium Chloride 0.9% 1, 1000 000 ml @ 999 mls/hr IV . Q1H1M [facility] Rx#:[id number] cefTRIAXone 1 gm In 50 Sodium Chloride 0.9% 50 ml @ 100 mls/hr IVPB Q24HR [facility] Rx#:[id number] Intake, IV Titration 560.608 524.165 268.425 Amount Norepinephrine 4 mg In 560.608 Sodium Chloride 0.9% 250 ml @ 0.03 MCG/KG/MIN 16. 077 mls/hr IV .[id number] [facility] Rx#:[id number] Norepinephrine 8 mg In 524.165 249.835 Sodium Chloride 0.9% 250 ml @ 0.03 MCG/KG/MIN 8. 165 mls/hr IV .Q24H [facility] Rx#:[id number] Vasopressin 20 unit In 18.59 Sodium Chloride 0.9% 50 ml @ 0.03 UNITS/MIN 4.59 mls/hr IV .Q11H7M [facility] Rx# :[id number] Oral 250 Blood Product 0 310 Rc As-1 Unit 0 310 [id number] Output: Urine 275 205 65 Other: Voiding Method Indwelling Catheter Indwelling Catheter ABP, PAP, CO, CI - Last Documented Arterial Blood Pressure 116/52 - Exam Patient is awake, comfortable, no acute distress Examination of the heart S1 and S2 with metallic valve noted Examination lungs shows decreased breath sounds at the bases Abdomen is soft obese nontender Examination of lower extremities shows edema 2+ bilaterally with chronic skin changes - Labs CBC & Chem 7: 10/20/22 03:55 10/20/22 09:05 Labs: Abnormal Lab Results - Last 24 Hours (Table) 10/18/22 10/19/22 10/20/22 Range/Units 21:42 11:16 03:55 WBC 13.2 H (3.8-10.6) k/uL RBC 2.51 L (3.80-5.40) m/uL Hgb 6.7 L* (11.4-16.0) gm/dL Hct 22.5 L (34.0-46.0) % MCHC 29.9 L (31.0-37.0) g/dL RDW 17.5 H (11.5-15.5) % PT (9.0-12.0) sec INR (<1.2) Sodium (137-145) mmol/L Potassium (3.5-5.1) mmol/L BUN (7-17) mg/dL Creatinine (0.52-1.04) mg/dL Glucose (74-99) mg/dL Calcium (8.4-10.2) mg/dL Magnesium (1.6-2.3) mg/dL Total Protein (6.3-8.2) g/dL Albumin (3.5-5.0) g/dL Urine Appearance Turbid H (Clear) Urine Protein 3+ H (Negative) Urine Blood Moderate H (Negative) Ur Leukocyte Esterase Large H (Negative) Urine WBC >182 H (0-5) /hpf Urine WBC Clumps Many H (None) /hpf Urine Bacteria Many H (None) /hpf Crossmatch See Detail 10/20/22 10/20/22 10/20/22 Range/Units 03:55 03:55 03:55 WBC (3.8-10.6) k/uL RBC (3.80-5.40) m/uL Hgb (11.4-16.0) gm/dL Hct (34.0-46.0) % MCHC (31.0-37.0) g/dL RDW (11.5-15.5) % PT 45.1 H (9.0-12.0) sec INR 4.6 H (<1.2) Sodium 136 L (137-145) mmol/L Potassium 5.5 H (3.5-5.1) mmol/L BUN 50 H (7-17) mg/dL Creatinine 2.44 H (0.52-1.04) mg/dL Glucose 126 H (74-99) mg/dL Calcium 7.3 L (8.4-10.2) mg/dL Magnesium 2.4 H (1.6-2.3) mg/dL Total Protein 5.7 L (6.3-8.2) g/dL Albumin 3.0 L (3.5-5.0) g/dL Urine Appearance (Clear) Urine Protein (Negative) Urine Blood (Negative) Ur Leukocyte Esterase (Negative) Urine WBC (0-5) /hpf Urine WBC Clumps (None) /hpf Urine Bacteria (None) /hpf Crossmatch 10/20/22 Range/Units 09:05 WBC (3.8-10.6) k/uL RBC (3.80-5.40) m/uL Hgb (11.4-16.0) gm/dL Hct (34.0-46.0) % MCHC (31.0-37.0) g/dL RDW (11.5-15.5) % PT (9.0-12.0) sec INR (<1.2) Sodium (137-145) mmol/L Potassium 5.3 H (3.5-5.1) mmol/L BUN (7-17) mg/dL Creatinine (0.52-1.04) mg/dL Glucose (74-99) mg/dL Calcium (8.4-10.2) mg/dL Magnesium (1.6-2.3) mg/dL Total Protein (6.3-8.2) g/dL Albumin (3.5-5.0) g/dL Urine Appearance (Clear) Urine Protein (Negative) Urine Blood (Negative) Ur Leukocyte Esterase (Negative) Urine WBC (0-5) /hpf Urine WBC Clumps (None) /hpf Urine Bacteria (None) /hpf Crossmatch Microbiology - Last 24 Hours (Table) 10/19/22 11:16 Urine Culture - Preliminary Urine,Voided Assessment and Plan Assessment: 1. Acute kidney injury secondary to hypotension and shock pain, oliguric i nitially with some improvement in urine output. 2. Hypotension from most likely septic shock from underlying UTI. Possibility of endocarditis being entertained given the metallic valve. 3. History of CHF, systolic with ejection fraction 35% with severe tricuspid regurgitation. 4. Valvular heart disease status post metallic aortic valve replacement 5. Anemia with stool for occult blood positive with hemoglobin of 6.8 on initial admission status post packed RBCs transfusion. INR was 6.9 Plan: Continue IV fluids Agree with ID consult Lasix 80 mg IV 1 Check ultrasound of the kidneys
[2022-10-20 11:36] LABS: Anisocytosis Slight; HCT 25.2 % (34.0-46.0); HGB 7.6 gm/dL (11.4-16.0); Hypochromasia Marked; MCH 27.9 pg (25.0-35.0); MCHC 30.3 g/dL (31.0-37.0); Mean Platelet Volume 8.2; Platelet Count 213 k/uL (150-450); Poikilocytosis Moderate; RBC 2.74 m/uL (3.80-5.40); RDW 16.9 % (11.5-15.5); WBC 14.6 k/uL (3.8-10.6)
[2022-10-20 11:48] LABS: ABG Base Excess -5.3 mmol/L; ABG HCO3 24 mmol/L (21-25); ABG PO2 170 mmHg (83-108); ABG TCO2 27 mmol/L (19-24); Allen Test Performed? Yes
[2022-10-20 11:53] LABS: ABG PCO2 77 mmHg (35-45); ABG PH 7.11 (7.35-7.45)
[2022-10-20] MEDS: SODIUM CHLORIDE 0.9% 1,000 ML IV SCH (12:00)
[2022-10-20] MEDS: NOREPINEPHRINE 32 MG in SODIUM CHLORIDE 0.9% 218 ML IV SCH ×2 (13:00→22:00)
--- NOTE | 2022-10-20 13:42 | US ---
EXAMINATION TYPE: US kidneys/renal and bladder DATE OF EXAM: 10/20/2022 COMPARISON: CT Chest CLINICAL H[place]ORY: [place] EXAM MEASUREMENTS: Right Kidney: 10.2 x 4.9 x 4.6 cm Left Kidney: 10.2 x 4.0 x 4.1 cm Very limited exam, pt immobile in ICU, severely, morbidly obese Right Kidney: No evidence of hydro, limited visualization Left Kidney: No evidence of hydro, limited visualization Bladder: Pt has cath in place IMPRESSION: Limited exam demonstrates no obvious evidence of hydronephrosis. There does appear to be a small amou nt of ascites.
--- NOTE | 2022-10-20 14:44 | P.CONS ---
History of Present Illness - Reason for Consult Consult date: 10/20/22 Sepsis Requesting physician: Nitish Walton - Chief Complaint Increasing shortness of breath or lower extremity swelling x few days - History of Present Illness The patient is a 67-year-old female patient with a past medical history significant for Marfan syndrome as well as valvular heart disease status post aortic valve replacement using mechanical valve 45 years ago along with ascending aortic aneurysm repair at that point and also history of cardiomyopathy, patient also have a history of hypertension and Atrial fibrillation hypothyroidism, patient presented to the ER on 10/18/2022 for evaluation of increasing shortness of breath has been getting worse or the last 1 week and also increasing swelling to the lower extremity, patient denies having any high-grade fever and chills before presentation to the hospital and no fever has been recorded during this hospital stay patient denies having any chest pain mostly shortness of breath denies significant cough or sputum production patient denies having any nausea no vomiting and no abdominal pain no diarrhea patient denies having any dental workup done recently over the last 6 months. Patient on presentation to the hospital was afebrile and no fever has been recorded during this hospital stay, patient did have a normal white count on admission however is up to 14.6 today patient also noticed to have low hemo globin of 6.8 and an INR of more than 10 on admission however stool for occult blood was negative, patient did have elevated BUN and creatinine, liver enzymes are normal, patient did have a positive UA for the patient was started on Rocephin yesterday, patient did have echocardiogram and we did shows severe RV and RA enlargement prosthetic aortic valve with mild stenosis and regurgitation did not mention any vegetation however 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 about prosthetic valve endocarditis that has prompted this infectious disease consultation, patient chest x-ray moderate coronary megaly and underlying pulmonary vascular congestion did not mention any consolidation Review of Systems Positive point has been mentioned in the HPI rest of the systems are negative Past Medical History Past Medical History: Atrial Fibrillation, Heart Failure, Eye Disorder, Hypertension, Osteoarthritis (OA), Pneumonia, Thyroid Disorder Additional Past Medical History / Comment(s): History of Marfan syndrome with previous aortic valve replacement and repair of an ascending and descending aortic aneurysm, hypothyroidism, history of right eye blindness along with a right retinal eye vein occlusion, scoliosis of the spine. History of Any Multi-Drug Resistant Organisms: None Reported Past Surgical History: Cardiac Valve Replacement, Heart Catheterization, Hysterectomy, Orthopedic Surgery Additional Past Surgical History / Comment(s): Aortic valve replacement with placement of a mechanical valve, and upper aortic aneurysm repair 40 yrs ago at [facility], descending aortic repair [facility], bilateral cataract removal with lens, R knee ACL repair. Past Anesthesia/Blood Transfusion Reactions: No Reported Reaction Additional Past Anesthesia/Blood Transfusion Reaction / Comm: Pt. believes she has received blood in the past without reaction. Past Psychological History: No Psychological Hx Reported Additional Psychological History / Comment(s): Pt lives at home and her son, daughter in law and grandchild live with her. She uses a cane/walker to ambulate. She drives. She is independent. Smoking Status: Never smoker Past Alcohol Use History: Occasional Past Drug Use History: None Reported - Past Family History Father Family Medical History: Unable to Obtain Additional Family Medical History / Comment(s): Father is . Pt unable to give history-becomes very tearful speaking of parents. Mother Family Medical History: Unable to Obtain Additional Family Medical History / Comment(s): Mother is . Medications and Allergies Home Medications Medication Instructions Recorded Confirmed Type Metoprolol Succinate [Toprol XL] 100 mg PO DAILY 12/01/15 10/18/22 History Levothyroxine Sodium [Synthroid] 150 mcg PO DAILY 12/02/15 10/18/22 History Warfarin [Coumadin] 5 mg PO HS 12/02/15 10/18/22 History Fluticasone Propion/Salmeterol 1 puff INHALATION DIRECTED 10/18/22 10/18/22 History [Advair 250-50 Diskus] Furosemide [Lasix] 40 mg PO BID@0900,1600 10/18/22 10/18/22 History Losartan Potassium 100 mg PO HS 10/18/22 10/18/22 History Potassium Chloride ER [K-Dur 20] 10 meq PO HS 10/18/22 10/18/22 History Allergies Allergy/AdvReac Type Severity Reaction Status Date / Time citalopram [From Celexa] AdvReac Nausea & Verified 10/18/22 18:22 Vomiting Physical Exam Vitals: Vital Signs Temp Pulse Resp BP Pulse Ox FiO2 10/20/22 10:15 101 H 20 98 10/20/22 10:00 23 97/65 97 10/20/22 09:59 97 10/20/22 09:45 110 H 24 83 L 10/20/22 09:30 97.7 F 109 H 10 L 105/47 98 10/20/22 09:15 104 H 16 98 10/20/22 09:00 101 H 18 105/71 10/20/22 08:45 111 H 24 95 10/20/22 08:30 103 H 21 94 L 10/20/22 08:15 104 H 23 10/20/22 08:00 97.3 F L 106 H 17 93 L 60 10/20/22 07:45 109 H 17 88 L 10/20/22 07:36 60 10/20/22 07:30 98 19 92 L 10/20/22 07:15 99 18 93 L 10/20/22 07:10 96.9 F L 94 16 105/42 10/20/22 07:00 96 20 92/46 86 L 10/20/22 06:50 97.8 F 92 18 100/40 92 L 10/20/22 06:45 99 18 92/46 86 L 10/20/22 06:41 96.5 F L 10/20/22 06:40 96 18 98/42 92 L 10/20/22 06:30 96 29 H 107/64 90 L 10/20/22 06:15 81 28 H 107/64 89 L 10/20/22 06:00 98 18 91 L 10/20/22 05:45 82 17 93 L 10/20/22 05:30 84 22 91 L 10/20/22 05:15 86 21 82/52 92 L 10/20/22 05:00 86 20 89 L 10/20/22 04:45 95 22 95 10/20/22 04:30 79 16 97/47 89 L 10/20/22 04:15 97 23 97/47 89 L 10/20/22 04:00 97.1 F L 87 35 H 88 L 60 10/20/22 03:45 85 19 91 L 10/20/22 03:30 88 21 92 L 10/20/22 03:24 55 10/20/22 03:15 84 20 103/33 90 L 10/20/22 03:00 86 19 126/90 96 10/20/22 02:45 93 24 94 L 10/20/22 02:30 86 17 98 10/20/22 02:15 89 18 132/98 93 L 10/20/22 02:00 96 24 139/108 94 L 10/20/22 01:45 81 27 H 96 10/20/22 01:30 95 32 H 93 L 10/20/22 01:15 87 25 H 139/108 90 L 10/20/22 01:00 82 18 86 L 10/20/22 00:45 86 24 93 L 10/20/22 00:30 85 12 91 L 10/20/22 00:15 84 18 90 L 10/20/22 00:01 83 18 89 L 10/20/22 00:00 97.9 F 93 22 91/53 89 L 55 10/19/22 23:45 83 22 94 L 10/19/22 23:41 55 10/19/22 23:30 98 47 H 93 L 10/19/22 23:15 78 25 H 92 L 10/19/22 23:00 79 33 H 92/67 96 10/19/22 22:45 80 25 H 94 L 10/19/22 22:30 80 20 94 L 10/19/22 22:15 93 18 91 L 10/19/22 22:00 85 19 110/52 88 L 10/19/22 21:45 73 29 H 89 L 60 10/19/22 21:30 74 23 91 L 10/19/22 21:15 75 22 90 L 10/19/22 21:00 84 35 H 88 L 10/19/22 20:45 78 22 85 L 50 10/19/22 20:30 75 24 112/57 86 L 10/19/22 20:15 73 19 112/57 88 L 10/19/22 20:00 96.9 F L 77 12 89 L 40 10/19/22 19:45 72 21 90 L 10/19/22 19:30 71 20 86 L 10/19/22 19:15 77 23 87 L 10/19/22 19:12 40 10/19/22 19:00 75 29 H 97/77 92 L 10/19/22 18:45 76 24 90 L 10/19/22 18:30 67 21 91 L 10/19/22 18:15 79 21 96 10/19/22 18:00 71 18 88/36 96 10/19/22 17:45 76 25 H 88/36 95 10/19/22 17:30 79 25 H 88/36 94 L 10/19/22 17:15 73 16 88/36 93 L 10/19/22 17:00 67 24 99/40 91 L 10/19/22 16:45 74 25 H 92 L 10/19/22 16:30 70 33 H 90 L 10/19/22 16:15 71 19 91 L 10/19/22 16:00 96.9 F L 77 27 H 97/45 94 L 40 10/19/22 15:45 72 18 93 L 10/19/22 15:30 73 22 92 L 10/19/22 15:15 74 14 97/45 96 10/19/22 15:10 40 10/19/22 15:00 66 35 H 99/45 95 10/19/22 14:45 61 20 99/45 93 L 10/19/22 14:30 71 20 99/45 94 L 10/19/22 14:15 73 20 99/45 95 10/19/22 14:00 75 22 92/49 95 10/19/22 13:45 79 22 91/52 96 10/19/22 13:30 79 18 95/40 94 L 10/19/22 13:15 71 25 H 97/46 95 10/19/22 13:00 75 29 H 101/51 96 10/19/22 12:45 76 27 H 97/40 96 10/19/22 12:30 73 24 96/38 97 10/19/22 12:15 75 24 105/41 98 10/19/22 12:00 97 F L 64 22 84/44 98 10/19/22 11:45 70 21 84/30 98 10/19/22 11:30 62 19 91/46 95 10/19/22 11:15 75 18 91/44 92 L 10/19/22 11:13 40 Intake and Output 10/19/22 10/20/22 10/20/22 22:59 06:59 14:59 Intake Total 8101.931 0311.165 928.425 Output Total 170 150 65 Balance 1228.000 966.165 863.425 Intake: IV 1140 600 350 IV Fluid 140 600 300 Sodium Chloride 0.9% 1, 1000 000 ml @ 999 mls/hr IV . Q1H1M [facility] Rx#:[id number] cefTRIAXone 1 gm In 50 Sodium Chloride 0.9% 50 ml @ 100 mls/hr IVPB Q24HR [facility] Rx#:[id number] Intake, IV Titration 258.000 266.165 268.425 Amount Norepinephrine 8 mg In 258.000 266.165 249.835 Sodium Chloride 0.9% 250 ml @ 0.03 MCG/KG/MIN 8. 165 mls/hr IV .Q24H [facility] Rx#:[id number] Vasopressin 20 unit In 18.59 Sodium Chloride 0.9% 50 ml @ 0.03 UNITS/MIN 4.59 mls/hr IV .Q11H7M [facility] Rx# :[id number] Oral 250 Blood Product 0 310 Rc As-1 Unit 0 310 [id number] Output: Urine 170 150 65 Other: Voiding Method Indwelling Catheter Indwelling Catheter Weight 142 kg ABP, PAP, CO, CI - Last 8 Hours Arterial Blood Pressure 116/52 Arterial Blood Pressure 110/48 Arterial Blood Pressure 105/45 Arterial Blood Pressure 100/47 Arterial Blood Pressure 103/47 Arterial Blood Pressure 103/47 Arterial Blood Pressure 111/49 Arterial Blood Pressure 109/49 Arterial Blood Pressure 117/51 Arterial Blood Pressure 112/48 Arterial Blood Pressure 114/47 Arterial Blood Pressure 102/41 Arterial Blood Pressure 96/40 Arterial Blood Pressure 92/37 Arterial Blood Pressure 101/40 Arterial Blood Pressure 73/41 Arterial Blood Pressure 101/45 Arterial Blood Pressure 103/43 Arterial Blood Pressure 102/42 Arterial Blood Pressure 100/41 Arterial Blood Pressure 100/43 Arterial Blood Pressure 97/41 Arterial Blood Pressure 110/48 Arterial Blood Pressure 99/40 Arterial Blood Pressure 109/45 Arterial Blood Pressure 108/43 Arterial Blood Pressure 108/45 Arterial Blood Pressure 113/44 Arterial Blood Pressure 72/35 GENERAL DESCRIPTION: Elderly female lying in bed, no distress. No tachypnea or accessory muscle of respiration use. HEENT: Shows Pallor , no scleral icterus. Oral mucous membrane is dry. No pharyngeal erythema or thrush NECK: Trachea central, no thyromegaly. LUNGS: Unlabored breathing. Decreased intensity of breath sounds. HEART: S1, S2, regular rate and rhythm. No loud murmur ABDOMEN: Soft, no tenderness , guarding or rigidity, no organomegaly EXTREMITIES: 2+ edema of feet. SKIN: No rash, no masses palpable. NEUROLOGICAL: The patient is awake, alert, oriented x3, mood and affect normal. Results CBC & Chem 7: 10/21/22 04:45 10/21/22 04:45 Labs: Abnormal Lab Results - Last 24 Hours (Table) 10/18/22 10/19/22 10/20/22 Range/Units 21:42 11:16 03:55 WBC 13.2 H (3.8-10.6) k/uL RBC 2.51 L (3.80-5.40) m/uL Hgb 6.7 L* (11.4-16.0) gm/dL Hct 22.5 L (34.0-46.0) % MCHC 29.9 L (31.0-37.0) g/dL RDW 17.5 H (11.5-15.5) % PT (9.0-12.0) sec INR (<1.2) Sodium (137-145) mmol/L Potassium (3.5-5.1) mmol/L BUN (7-17) mg/dL Creatinine (0.52-1.04) mg/dL Glucose (74-99) mg/dL Calcium (8.4-10.2) mg/dL Magnesium (1.6-2.3) mg/dL Total Protein (6.3-8.2) g/dL Albumin (3.5-5.0) g/dL Urine Appearance Turbid H (Clear) Urine Protein 3+ H (Negative) Urine Blood Moderate H (Negative) Ur Leukocyte Esterase Large H (Negative) Urine WBC >182 H (0-5) /hpf Urine WBC Clumps Many H (None) /hpf Urine Bacteria Many H (None) /hpf Crossmatch See Detail 10/20/22 10/20/22 10/20/22 Range/Units 03:55 03:55 03:55 WBC (3.8-10.6) k/uL RBC (3.80-5.40) m/uL Hgb (11.4-16.0) gm/dL Hct (34.0-46.0) % MCHC (31.0-37.0) g/dL RDW (11.5-15.5) % PT 45.1 H (9.0-12.0) sec INR 4.6 H (<1.2) Sodium 136 L (137-145) mmol/L Potassium 5.5 H (3.5-5.1) mmol/L BUN 50 H (7-17) mg/dL Creatinine 2.44 H (0.52-1.04) mg/dL Glucose 126 H (74-99) mg/dL Calcium 7.3 L (8.4-10.2) mg/dL Magnesium 2.4 H (1.6-2.3) mg/dL Total Protein 5.7 L (6.3-8.2) g/dL Albumin 3.0 L (3.5-5.0) g/dL Urine Appearance (Clear) Urine Protein (Negative) Urine Blood (Negative) Ur Leukocyte Esterase (Negative) Urine WBC (0-5) /hpf Urine WBC Clumps (None) /hpf Urine Bacteria (None) /hpf Crossmatch 10/20/22 Range/Units 09:05 WBC (3.8-10.6) k/uL RBC (3.80-5.40) m/uL Hgb (11.4-16.0) gm/dL Hct (34.0-46.0) % MCHC (31.0-37.0) g/dL RDW (11.5-15.5) % PT (9.0-12.0) sec INR (<1.2) Sodium (137-145) mmol/L Potassium 5.3 H (3.5-5.1) mmol/L BUN (7-17) mg/dL Creatinine (0.52-1.04) mg/dL Glucose (74-99) mg/dL Calcium (8.4-10.2) mg/dL Magnesium (1.6-2.3) mg/dL Total Protein (6.3-8.2) g/dL Albumin (3.5-5.0) g/dL Urine Appearance (Clear) Urine Protein (Negative) Urine Blood (Negative) Ur Leukocyte Esterase (Negative) Urine WBC (0-5) /hpf Urine WBC Clumps (None) /hpf Urine Bacteria (None) /hpf Crossmatch Microbiology - Last 24 Hours (Table) 10/19/22 11:16 Urine Culture - Preliminary Urine,Voided Assessment and Plan (1) SIRS (systemic inflammatory response syndrome) Status: Acute Code(s): R65.10 - SIRS OF NON-INFECTIOUS ORIGIN W/O ACUTE ORGAN DYSFUNCTION SNOMED Code(s): 707572461 Plan: 1patient is a 67 year female with a past medical history taken from often syndrome in this patient was status post aortic valve replacement 45 years ago now presenting to the hospital with increasing shortness of breath worse in the swelling concerning for CHF, patient did not have any fever during this hospital stay and did have a normal white count initially, patient also have a low hemoglobin and elevated INR on admission, echo mention mild aortic stenosis and regurgitation but no vegetation, prosthetic valve endocarditis less likely but not entirely excluded. 2patient with renal insufficiency her discomfort nephrotoxicity from vancomycin 3blood cultures will be obtained 2 and will also obtain CRP and sed rate 4patient benefit from [facility] to better define underlying pathology. 5we will discontinue Rocephin and start the patient on cefepime and daptomycin while waiting for the workup to be completed We will follow on clinical condition and cultures to further adjust medication if needed Thank you for this consultation will follow this patient with you Time with Patient: Greater than 30
--- NOTE | 2022-10-20 16:52 | P.PN ---
Subjective Progress Note Date: 10/20/22 H&P Date: 10/19/22 This a 67-year-old female with past medical history of Marfan syndrome, atrial fibrillation, heart failure, aortic aneurysm repair, right retinal vein occlusion with blindness and multiple other medical issues presented to the ER with worsening shortness of breath, increased lower extremity edema over the last week. Lactic acid 2. Venous blood gas reported pH 7.23 , pCO2 74, bicarb 30 .Chest x-ray reported chronic right basilar consolidation/atelectasis with elevated right hemidiaphragm, chronic mild pulmonary congestion and persistent cardiomegaly-unchanged from prior. EKG prior atrial fibrillation. Magnesium 2.6. Denies chest pain, palpitations. Denied any fever or chills. Anticoagulated on Coumadin, INR supratherapeutic on admission, greater than 10. Received vitamin K, currently 6.9. Hemoglobin 6.8, stool for occult blood negative, received 1 unit of packed RBCs, current hemoglobin 7.8. BUN 51, creatinine 2.81. Potassium 5.4. TSH 3.4, free T4 2.17 UA reporting many bacteria WBC clumps greater than 182 WBCs/leukocytes negative nitrates. Afebrile, normal WBC. Received fluid resuscitation yesterday, a dose of Lasix 20 IV push this morning. Currently BiPAP dependent, on Levophed. 10/20/2022 Remains BiPAP dependent, unable to wean, maintaining O2 sats in the low 90s.in addition to IV fluid hydration, requiring Levophed and vasopressin drips. Echo reporting LVH with reduced LV systolic function about 35%, severe RV and RA enlargement, prosthetic aortic valve with mild stenosis and mild aortic regurgitation, severe pulmonary hypertension, RVSP 81mmHg . INR decreased to 4.6 Receiving 1 unit of packed RBCs for hemoglobin of 6.7. Denies pain. Afebrile, WBC increased to 14.6 , urine and blood cultures pending.Concern for underlying endocarditis, infectious disease consult in place. BUN 50, creatinine 2.44. Potassium 5.3, 90s and 2.4. Telemetry with PVCs, bigeminy. Objective - Vital Signs Vital signs: Vital Signs Temp 97.9 F 10/20/22 12:00 Pulse 108 H 10/20/22 12:00 Resp 23 10/20/22 12:00 BP 103/59 10/20/22 12:00 Pulse Ox 98 10/20/22 12:00 FiO2 50 10/20/22 15:34 Intake & Output 10/19/22 10/20/22 10/20/22 18:59 06:59 18:59 Intake Total 2780.608 9190.574 0714.778 Output Total 275 205 125 Balance 2505.608 2297.762 0142.778 Weight 142 kg Intake: IV 2220 660 500 IV Fluid 1220 660 450 Sodium Chloride 0.9% 1, 1000 000 ml @ 999 mls/hr IV . Q1H1M [facility] Rx#:[id number] cefTRIAXone 1 gm In 50 Sodium Chloride 0.9% 50 ml @ 100 mls/hr IVPB Q24HR [facility] Rx#:[id number] Intake, IV Titration 560.608 524.165 404.778 Amount Norepinephrine 4 mg In 560.608 Sodium Chloride 0.9% 250 ml @ 0.03 MCG/KG/MIN 16. 077 mls/hr IV .[id number] [facility] Rx#:[id number] Norepinephrine 8 mg In 524.165 356.710 Sodium Chloride 0.9% 250 ml @ 0.03 MCG/KG/MIN 8. 165 mls/hr IV .Q24H [facility] Rx#:[id number] Vasopressin 20 unit In 48.068 Sodium Chloride 0.9% 50 ml @ 0.03 UNITS/MIN 4.59 mls/hr IV .Q11H7M [facility] Rx# :[id number] Oral 250 Blood Product 0 310 Rc As-1 Unit 0 310 [id number] Output: Urine 275 205 125 Other: Voiding Method Indwelling Catheter Indwelling Catheter Indwelling Catheter ABP, PAP, CO, CI - Last Documented Arterial Blood Pressure 100/40 - Exam - Exam GENERAL: This is a -67-year-old , sitting up in bed, wearing BiPAP ,Pleasant and cooperative. HEENT: Head is atraumatic, normocephalic. Pupils are equal, round, and reactive to light. Sclerae anicteric. Conjunctivae are clear. Neck: supple, no JVD. RESPIRATORY: diminished breath sounds, bibasilar crackles CARDIOVASCULAR: Regular rate and rhythm. S1 and S2 noted. Positive click. Systolic murmur. GASTROINTESTINAL: Soft, No distention noted. Diffuse abdominal pain. Normal active bowel sounds auscultated x 4 quadrants. INTEGUMENTARY: No cyanosis. No jaundice. No rashes noted. No cellulitis noted. EXTREMITIES: 2+ peripheral pulses. Positive peripheral edema. NEUROLOGIC: Cranial nerves II-XII intact. PSYCHIATRIC: Awake, alert, and oriented X 3. Appropriate affect. - Labs CBC & Chem 7: 10/20/22 11:27 10/20/22 09:05 Labs: Abnormal Lab Results - Last 24 Hours (Table) 10/18/22 10/20/22 10/20/22 Range/Units 21:42 03:55 03:55 WBC 13.2 H (3.8-10.6) k/uL RBC 2.51 L (3.80-5.40) m/uL Hgb 6.7 L* (11.4-16.0) gm/dL Hct 22.5 L (34.0-46.0) % MCHC 29.9 L (31.0-37.0) g/dL RDW 17.5 H (11.5-15.5) % ESR (0-20) mm/hr PT (9.0-12.0) sec INR (<1.2) ABG pH (7.35-7.45) ABG pCO2 (35-45) mmHg ABG pO2 (83-108) mmHg ABG Total CO2 (19-24) mmol/L ABG O2 Saturation (94-97) % Sodium 136 L (137-145) mmol/L Potassium 5.5 H (3.5-5.1) mmol/L BUN 50 H (7-17) mg/dL Creatinine 2.44 H (0.52-1.04) mg/dL Glucose 126 H (74-99) mg/dL Calcium 7.3 L (8.4-10.2) mg/dL Magnesium (1.6-2.3) mg/dL C-Reactive Protein (<1.0) mg/dL Total Protein 5.7 L (6.3-8.2) g/dL Albumin 3.0 L (3.5-5.0) g/dL Crossmatch See Detail 10/20/22 10/20/22 10/20/22 Range/Units 03:55 03:55 09:05 WBC (3.8-10.6) k/uL RBC (3.80-5.40) m/uL Hgb (11.4-16.0) gm/dL Hct (34.0-46.0) % MCHC (31.0-37.0) g/dL RDW (11.5-15.5) % ESR (0-20) mm/hr PT 45.1 H (9.0-12.0) sec INR 4.6 H (<1.2) ABG pH (7.35-7.45) ABG pCO2 (35-45) mmHg ABG pO2 (83-108) mmHg ABG Total CO2 (19-24) mmol/L ABG O2 Saturation (94-97) % Sodium (137-145) mmol/L Potassium 5.3 H (3.5-5.1) mmol/L BUN (7-17) mg/dL Creatinine (0.52-1.04) mg/dL Glucose (74-99) mg/dL Calcium (8.4-10.2) mg/dL Magnesium 2.4 H (1.6-2.3) mg/dL C-Reactive Protein (<1.0) mg/dL Total Protein (6.3-8.2) g/dL Albumin (3.5-5.0) g/dL Crossmatch 10/20/22 10/20/22 10/20/22 Range/Units 11:27 11:27 11:27 WBC 14.6 H (3.8-10.6) k/uL RBC 2.74 L (3.80-5.40) m/uL Hgb 7.6 L (11.4-16.0) gm/dL Hct 25.2 L (34.0-46.0) % MCHC 30.3 L (31.0-37.0) g/dL RDW 16.9 H (11.5-15.5) % ESR 46 H (0-20) mm/hr PT (9.0-12.0) sec INR (<1.2) ABG pH (7.35-7.45) ABG pCO2 (35-45) mmHg ABG pO2 (83-108) mmHg ABG Total CO2 (19-24) mmol/L ABG O2 Saturation (94-97) % Sodium (137-145) mmol/L Potassium (3.5-5.1) mmol/L BUN (7-17) mg/dL Creatinine (0.52-1.04) mg/dL Glucose (74-99) mg/dL Calcium (8.4-10.2) mg/dL Magnesium (1.6-2.3) mg/dL C-Reactive Protein 4.9 H (<1.0) mg/dL Total Protein (6.3-8.2) g/dL Albumin (3.5-5.0) g/dL Crossmatch 10/20/22 Range/Units 11:34 WBC (3.8-10.6) k/uL RBC (3.80-5.40) m/uL Hgb (11.4-16.0) gm/dL Hct (34.0-46.0) % MCHC (31.0-37.0) g/dL RDW (11.5-15.5) % ESR (0-20) mm/hr PT (9.0-12.0) sec INR (<1.2) ABG pH 7.11 L* (7.35-7.45) ABG pCO2 77 H* (35-45) mmHg ABG pO2 170 H (83-108) mmHg ABG Total CO2 27 H (19-24) mmol/L ABG O2 Saturation 100.0 H (94-97) % Sodium (137-145) mmol/L Potassium (3.5-5.1) mmol/L BUN (7-17) mg/dL Creatinine (0.52-1.04) mg/dL Glucose (74-99) mg/dL Calcium (8.4-10.2) mg/dL Magnesium (1.6-2.3) mg/dL C-Reactive Protein (<1.0) mg/dL Total Protein (6.3-8.2) g/dL Albumin (3.5-5.0) g/dL Crossmatch Microbiology - Last 24 Hours (Table) 10/19/22 11:16 Urine Culture - Preliminary Urine,Voided Assessment and Plan Assessment: Sepsis, septic shock present on admission Hypotension, multifactorial secondary to the above and to anemia, pressor dependent Acute CHF exacerbation, systolic dysfunction Cardiomyopathy, severe, EF 30-35% Severe pulmonary hypertension Acute hypoxic respiratory failure secondary to the above, BiPAP dependent Acute anemia status post 2 unit of packed RBCs Hypercoagulopathy, INR on admission greater than 10, status post vitamin K Acute renal failure secondary to hypotension Hyperkalemia secondary to the above Possible acute UTI, cultures pending Atrial fibrillation, chronic Marfan syndrome Aortic valve replacement, mechanical valve on long-term anticoagulation, supratherapeutic Ascending aortic aneurysm repair Hypertension Hyperlipidemia Hypothyroidism, subtherapeutic Plan: Continue on current medication regime ,monitoring and symptomatic treatment.Transfer to [facility] currently being discussed ; patient is an established patient with [facility] chemistry specialist. Possible [facility]. ICU management as per field placement director. Blood and urine cultures pending. Sed rate/CRP ordered. Continues on IV fluid hydration, pressor support. IV antibiotics as per infectious disease. Multiple consults following. Prognosis guarded given multiple complex medical issues. The impression and plan of care has been dictated as directed. : I performed a history and examination of this patient, discussed the same with the dictator. I agree with the dictator's note ,documented as a scribe. Any additional findings or plans will be noted.
[2022-10-20 17:18] LABS: ABG Base Excess -6.4 mmol/L; ABG HCO3 23 mmol/L (21-25); ABG Oxygen Saturation 99.2 % (94-97); ABG PCO2 68 mmHg (35-45); ABG PO2 116 mmHg (83-108); ABG TCO2 25 mmol/L (19-24); Allen Test Performed? Yes
[2022-10-20 17:21] LABS: ABG PH 7.13 (7.35-7.45)
[2022-10-20] MEDS: CEFEPIME 1 GM in SODIUM CHLORIDE 0.9% 50 ML IVPB SCH (17:36)
[2022-10-20] MEDS ORDERED: propofoL 100 ML IV ONE (17:53)
[2022-10-20] MEDS ORDERED: AMIODARONE 360 MG in DEXTROSE 5% IN WATER 200 ML IV ONE ×2 (18:15)
[2022-10-20] MEDS ORDERED: DEXTROSE 5% IN WATER 100 ML with AMIODARONE 150 MG IV ONE (18:15)
[2022-10-20 18:47] LABS: Calcium 7.4 mg/dL (8.4-10.2); Potassium 5.4 mmol/L (3.5-5.1)
--- NOTE | 2022-10-20 18:51 | XR ---
EXAMINATION TYPE: XR chest 1V portable DATE OF EXAM: 10/20/2022 COMPARISON: Yesterday HISTORY: Respiratory failure TECHNIQUE: FINDINGS: The endotracheal tube is 3.5 cm from the maciel. There is sternal wires and cardiac valve s urgery. There is infiltrate and atelectasis in both lower lobes. There is mild pulmonary congestion. There are chest leads. There is nasogastric tube with the tip is likely in the stomach. There is left subclavian catheter with tip in the superior vena cava. IMPRESSION: There is increasing bilateral pulmonary infiltrates and pulmonary congestion compared to exam yesterday.
[2022-10-20 18:56] LABS: Anisocytosis Slight; HCT 25.2 % (34.0-46.0); HGB 7.3 gm/dL (11.4-16.0); Hypochromasia Marked; MCH 27.3 pg (25.0-35.0); MCV 94.2 fL (80.0-100.0); Mean Platelet Volume 8.3; Platelet Count 228 k/uL (150-450); Poikilocytosis Moderate; RBC 2.67 m/uL (3.80-5.40); RDW 17.7 % (11.5-15.5); WBC 14.9 k/uL (3.8-10.6)
[2022-10-20 19:29] LABS: ABG Base Excess -5.8 mmol/L; ABG HCO3 21 mmol/L (21-25); ABG PCO2 44 mmHg (35-45); ABG PH 7.29 (7.35-7.45); ABG PO2 346 mmHg (83-108); ABG TCO2 22 mmol/L (19-24)
[2022-10-20] MEDS ORDERED: SODIUM BICARB 8.4% 50 ML SYR (1 MEQ/ML) IV STA (19:52)
[2022-10-20] MEDS: CHLORHEXIDINE GLUCONATE 15 ML CUP MUCOUS MEM SCH (20:21)
[2022-10-20 21:25] VITALS: BP 97/32
[2022-10-20 23:27] LABS: Glucose,Whole Blood 162 mg/dL (70-110)
[2022-10-21] MEDS ORDERED: AMIODARONE 450 MG in DEXTROSE 5% IN WATER 250 ML IV SCH ×2 (00:15)
[2022-10-21] MEDS: SODIUM CHLORIDE 0.9% 1,000 ML IV SCH (01:14)
[2022-10-21] MEDS: NOREPINEPHRINE 32 MG in SODIUM CHLORIDE 0.9% 218 ML IV SCH ×3 (02:43→09:47)
[2022-10-21] MEDS: VASOPRESSIN 20 UNIT in SODIUM CHLORIDE 0.9% 50 ML IV SCH (02:44)
[2022-10-21 04:53] LABS: Anisocytosis Slight; Basophils % (A) 0 %; Eosinophils # (A) 0.1 k/uL (0-0.7); Eosinophils % (A) 1 %; HCT 23.6 % (34.0-46.0); HGB 7.1 gm/dL (11.4-16.0); Hypochromasia Moderate; Lymphocytes # (A) 0.6 k/uL (1.0-4.8); Lymphocytes % (A) 4 %; Mean Platelet Volume 9.5; Monocytes % (A) 7 %; Neutrophils # (A) 12.8 k/uL (1.3-7.7); Neutrophils % (A) 87 %; Platelet Count 200 k/uL (150-450); Poikilocytosis Moderate; RBC 2.62 m/uL (3.80-5.40); RDW 18.2 % (11.5-15.5); WBC 14.7 k/uL (3.8-10.6)
[2022-10-21] MEDS: CEFEPIME 1 GM in SODIUM CHLORIDE 0.9% 50 ML IVPB SCH (05:00)
[2022-10-21 05:38] LABS: Glucose,Whole Blood 173 mg/dL (70-110)
[2022-10-21 05:40] LABS: Calcium 7.5 mg/dL (8.4-10.2); Magnesium 2.2 mg/dL (1.6-2.3); Potassium 5.1 mmol/L (3.5-5.1)
[2022-10-21 05:59] LABS: ABG Base Excess -2.9 mmol/L; ABG HCO3 22 mmol/L (21-25); ABG Oxygen Saturation 97.5 % (94-97); ABG PCO2 36 mmHg (35-45); ABG PH 7.39 (7.35-7.45); ABG PO2 79 mmHg (83-108); ABG TCO2 23 mmol/L (19-24); Allen Test Performed? Yes
[2022-10-21] MEDS ORDERED: FUROSEMIDE 10 MG/ML 4 ML VIAL IV STA (07:33)
--- NOTE | 2022-10-21 07:33 | P.PN ---
Subjective Progress Note Date: 10/21/22 Principal diagnosis: Valvular heart disease The patient is a 67-year-old female patient with a past medical history significant for Marfan syndrome as well as valvular heart disease status post aortic valve replacement using mechanical valve 45 years ago along with ascending aortic aneurysm repair at that point and also history of cardiomyopathy as well as multiple comorbid conditions who presented to the hospital complaining of increasing shortness of breath. For the last week the patient has been experiencing progressive exertional dyspnea associated with progressive bilateral lower extremities edema and weight gain. No symptoms of chest pain or chest discomfort and no dizziness or lightheadedness and no feeling of heart racing or fluttering or presyncope or syncope. She is known to have cardiomyopathy based on echo was performed in 2018 showing an EF around 35% with normally functioning mechanical aortic valve prosthesis. She stated that she has been compliant with her medications as well as has been compliant with her diet. She was found to be in heart failure and also she was found to be in acute renal failure with her creatinine is more than 2 and her baseline creatinine is within normal limits. Beside that she was anemic with a hemoglobin of 6.8 and she received one unit of packed RBC. Also she was hypotensive and currently she is on small doses of norepinephrine. When she was seen and examined this morning she seems to be in fluid overload. I'm going to give the patient 20 mg of Lasix IV once and also I am going to consult nephrology service for further evaluation of the acute renal failure. Critical care service is on the case as well. Clearly the patient is hypoxic when she presented and continues to be hypoxic at this point. No indication that she is septic. We are also going to obtain an echocardiogram to evaluate the ejection fraction at this point and also to evaluate the aortic valve prosthesis. Her INR was supratherapeutic when she presented to the hospital. October 202022 The patient was seen and evaluated this morning. Unfortunately she is not doing well. She continues to be on vasopressors and currently she is a norepinephrine as well as she is on vasopressors. Beside that creatinine remains elevated above 2 and she has not been making urine in spite of Christiano with Lasix IV. Nephrology is on the case. Potassium is elevated. That has been addressed. She has been throwing rectally intradermal PVCs and runs of nonsustained ventricular tachycardia. The echo showed impaired LV function was EF around 30% with normally functioning mechanical valve prosthesis in aortic position. Beside that urine analysis revealed UTI and currently she is on antibiotic. Overall the patient is not doing well from the critical care standpoint of view. Beside that her hemoglobin was low and she received 2 units of packed RBC. On examination she continues to have diminished breathing sounds bilaterally and severe bilateral lower extremities edema and clearly is hypervolemic October 212022 The patient was seen and evaluated this morning. Yesterday she went into acute hypoxic respiratory failure requiring intubation and mechanical ventilation. Beside that hemodynamically she continues to be unstable but not requiring only one vasopressors with norepinephrine. There is a persistence is off. Beside that she went into atrial fibrillation with RVR and she was started on amiodarone IV which I am going to switch to amiodarone by mouth at this point. No INR today. We'll obtain stat INR and consider bridging the patient with Lovenox to be achieved therapeutic INR giving that she has a mechanical aortic valve. Beside that would get the INR on her. Meanwhile continue the rest of the current medical regimen. Beside that on examination she is very congested with severe bilateral lower extremities pitting edema and with that being said I'm going to give the patient 40 mg of Lasix IV. The chest x-ray also showed evidence of pulmonary vascular congestion Objective - Vital Signs Vital signs: Vital Signs Temp 99.7 F H 10/21/22 04:00 Pulse 133 H 10/21/22 07:00 Resp 20 10/21/22 07:00 BP 97/32 10/21/22 01:00 Pulse Ox 97 10/21/22 07:00 FiO2 50 10/21/22 04:00 Intake & Output 10/20/22 10/21/22 10/21/22 18:59 06:59 18:59 Intake Total 9097.923 5475.401 220.882 Output Total 215 605 75 Balance 1055.082 6028.401 145.882 Weight 161.7 kg Intake: IV 1012.5 962.5 75 Cefepime 1 gm In Sodium 12.5 62.5 Chloride 0.9% 50 ml @ 12. 5 mls/hr IVPB Q12H [facility] Rx #:[id number] DAPTOmycin 600 mg In 50 Sodium Chloride 0.9% 50 ml @ 100 mls/hr IVPB Q48H [facility] Rx#:[id number] IV Fluid 900 900 75 cefTRIAXone 1 gm In 50 Sodium Chloride 0.9% 50 ml @ 100 mls/hr IVPB Q24HR [facility] Rx#:[id number] Intake, IV Titration 603.109 696.901 145.882 Amount Norepinephrine 32 mg In 182.782 224.193 145.882 Sodium Chloride 0.9% 218 ml @ 0.4 MCG/KG/MIN 26. 625 mls/hr IV .Q9H24M [facility] Rx#:[id number] Norepinephrine 8 mg In 356.710 Sodium Chloride 0.9% 250 ml @ 0.03 MCG/KG/MIN 8. 165 mls/hr IV .Q24H [facility] Rx#:[id number] Vasopressin 20 unit In 48.068 43.197 Sodium Chloride 0.9% 50 ml @ 0.03 UNITS/MIN 4.59 mls/hr IV .Q11H7M [facility] Rx# :[id number] propofoL 1,000 mg In 15.549 429.511 Empty Bag 1 bag @ 15 MCG/ KG/MIN 12.78 mls/hr IV . Q7H50M [facility] Rx#:[id number] Blood Product 310 Rc As-1 Unit 310 [id number] Output: Urine 215 605 75 Other: Voiding Method Indwelling Catheter Indwelling Catheter ABP, PAP, CO, CI - Last Documented Arterial Blood Pressure 116/43 - Constitutional General appearance: Present: no acute distress - Respiratory Respiratory: bilateral: diminished - Cardiovascular Rhythm: regular - Labs CBC & Chem 7: 10/21/22 04:45 10/21/22 04:45 Labs: Abnormal Lab Results - Last 24 Hours (Table) 10/18/22 10/20/22 10/20/22 Range/Units 21:42 03:55 09:05 WBC (3.8-10.6) k/uL RBC (3.80-5.40) m/uL Hgb (11.4-16.0) gm/dL Hct (34.0-46.0) % MCHC (31.0-37.0) g/dL RDW (11.5-15.5) % Neutrophils # (1.3-7.7) k/uL Lymphocytes # (1.0-4.8) k/uL ESR (0-20) mm/hr ABG pH (7.35-7.45) ABG pCO2 (35-45) mmHg ABG pO2 (83-108) mmHg ABG Total CO2 (19-24) mmol/L ABG O2 Saturation (94-97) % Sodium (137-145) mmol/L Potassium 5.3 H (3.5-5.1) mmol/L Carbon Dioxide (22-30) mmol/L BUN (7-17) mg/dL Creatinine (0.52-1.04) mg/dL Glucose (74-99) mg/dL POC Glucose (mg/dL) (70-110) mg/dL Calcium (8.4-10.2) mg/dL Magnesium 2.4 H (1.6-2.3) mg/dL C-Reactive Protein (<1.0) mg/dL Crossmatch See Detail 10/20/22 10/20/22 10/20/22 Range/Units 11:27 11:27 11:27 WBC 14.6 H (3.8-10.6) k/uL RBC 2.74 L (3.80-5.40) m/uL Hgb 7.6 L (11.4-16.0) gm/dL Hct 25.2 L (34.0-46.0) % MCHC 30.3 L (31.0-37.0) g/dL RDW 16.9 H (11.5-15.5) % Neutrophils # (1.3-7.7) k/uL Lymphocytes # (1.0-4.8) k/uL ESR 46 H (0-20) mm/hr ABG pH (7.35-7.45) ABG pCO2 (35-45) mmHg ABG pO2 (83-108) mmHg ABG Total CO2 (19-24) mmol/L ABG O2 Saturation (94-97) % Sodium (137-145) mmol/L Potassium (3.5-5.1) mmol/L Carbon Dioxide (22-30) mmol/L BUN (7-17) mg/dL Creatinine (0.52-1.04) mg/dL Glucose (74-99) mg/dL POC Glucose (mg/dL) (70-110) mg/dL Calcium (8.4-10.2) mg/dL Magnesium (1.6-2.3) mg/dL C-Reactive Protein 4.9 H (<1.0) mg/dL Crossmatch 10/20/22 10/20/22 10/20/22 Range/Units 11:34 17:12 18:05 WBC 14.9 H (3.8-10.6) k/uL RBC 2.67 L (3.80-5.40) m/uL Hgb 7.3 L (11.4-16.0) gm/dL Hct 25.2 L (34.0-46.0) % MCHC 29.0 L (31.0-37.0) g/dL RDW 17.7 H (11.5-15.5) % Neutrophils # (1.3-7.7) k/uL Lymphocytes # (1.0-4.8) k/uL ESR (0-20) mm/hr ABG pH 7.11 L* 7.13 L* (7.35-7.45) ABG pCO2 77 H* 68 H (35-45) mmHg ABG pO2 170 H 116 H (83-108) mmHg ABG Total CO2 27 H 25 H (19-24) mmol/L ABG O2 Saturation 100.0 H 99.2 H (94-97) % Sodium (137-145) mmol/L Potassium (3.5-5.1) mmol/L Carbon Dioxide (22-30) mmol/L BUN (7-17) mg/dL Creatinine (0.52-1.04) mg/dL Glucose (74-99) mg/dL POC Glucose (mg/dL) (70-110) mg/dL Calcium (8.4-10.2) mg/dL Magnesium (1.6-2.3) mg/dL C-Reactive Protein (<1.0) mg/dL Crossmatch 10/20/22 10/20/22 10/20/22 Range/Units 18:05 19:23 23:24 WBC (3.8-10.6) k/uL RBC (3.80-5.40) m/uL Hgb (11.4-16.0) gm/dL Hct (34.0-46.0) % MCHC (31.0-37.0) g/dL RDW (11.5-15.5) % Neutrophils # (1.3-7.7) k/uL Lymphocytes # (1.0-4.8) k/uL ESR (0-20) mm/hr ABG pH 7.29 L (7.35-7.45) ABG pCO2 (35-45) mmHg ABG pO2 346 H (83-108) mmHg ABG Total CO2 (19-24) mmol/L ABG O2 Saturation 100.0 H (94-97) % Sodium (137-145) mmol/L Potassium 5.4 H (3.5-5.1) mmol/L Carbon Dioxide 21 L (22-30) mmol/L BUN 49 H (7-17) mg/dL Creatinine 2.45 H (0.52-1.04) mg/dL Glucose 131 H (74-99) mg/dL POC Glucose (mg/dL) 162 H (70-110) mg/dL Calcium 7.4 L (8.4-10.2) mg/dL Magnesium (1.6-2.3) mg/dL C-Reactive Protein (<1.0) mg/dL Crossmatch 10/21/22 10/21/22 10/21/22 Range/Units 04:45 04:45 05:37 WBC 14.7 H (3.8-10.6) k/uL RBC 2.62 L (3.80-5.40) m/uL Hgb 7.1 L (11.4-16.0) gm/dL Hct 23.6 L (34.0-46.0) % MCHC 30.0 L (31.0-37.0) g/dL RDW 18.2 H (11.5-15.5) % Neutrophils # 12.8 H (1.3-7.7) k/uL Lymphocytes # 0.6 L (1.0-4.8) k/uL ESR (0-20) mm/hr ABG pH (7.35-7.45) ABG pCO2 (35-45) mmHg ABG pO2 (83-108) mmHg ABG Total CO2 (19-24) mmol/L ABG O2 Saturation (94-97) % Sodium 135 L (137-145) mmol/L Potassium (3.5-5.1) mmol/L Carbon Dioxide 20 L (22-30) mmol/L BUN 50 H (7-17) mg/dL Creatinine 2.15 H (0.52-1.04) mg/dL Glucose 157 H (74-99) mg/dL POC Glucose (mg/dL) 173 H (70-110) mg/dL Calcium 7.5 L (8.4-10.2) mg/dL Magnesium (1.6-2.3) mg/dL C-Reactive Protein (<1.0) mg/dL Crossmatch 10/21/22 Range/Units 05:54 WBC (3.8-10.6) k/uL RBC (3.80-5.40) m/uL Hgb (11.4-16.0) gm/dL Hct (34.0-46.0) % MCHC (31.0-37.0) g/dL RDW (11.5-15.5) % Neutrophils # (1.3-7.7) k/uL Lymphocytes # (1.0-4.8) k/uL ESR (0-20) mm/hr ABG pH (7.35-7.45) ABG pCO2 (35-45) mmHg ABG pO2 79 L (83-108) mmHg ABG Total CO2 (19-24) mmol/L ABG O2 Saturation 97.5 H (94-97) % Sodium (137-145) mmol/L Potassium (3.5-5.1) mmol/L Carbon Dioxide (22-30) mmol/L BUN (7-17) mg/dL Creatinine (0.52-1.04) mg/dL Glucose (74-99) mg/dL POC Glucose (mg/dL) (70-110) mg/dL Calcium (8.4-10.2) mg/dL Magnesium (1.6-2.3) mg/dL C-Reactive Protein (<1.0) mg/dL Crossmatch Microbiology - Last 24 Hours (Table) 10/20/22 19:44 Sputum Culture - Preliminary Sputum 10/19/22 11:16 Urine Culture - Preliminary Urine,Voided Gram Neg Bacilli Assessment and Plan Assessment: Assessment Congestive heart failure exacerbation related to heart failure with reduced ejection fraction Severe cardiomyopathy with EF between 30-35% Valvular heart disease status post aortic valve replacement using mechanical valve Status post ascending aortic repair Acute renal failure Septic shock Anemia required blood transfusion Multiple comorbid conditions Plan Stat INR and daily INR Further recommendation to follow the INR Consider Lovenox for bridging Continue support with vasopressors DC amiodarone IV and start the patient on amiodarone orally Lasix IV Follow-up with the patient
[2022-10-21 07:59] LABS: INR 4.9 (<1.2); Prothrombin Time 48.1 sec (9.0-12.0)
--- NOTE | 2022-10-21 08:40 | XR ---
EXAMINATION TYPE: XR chest 1V portable DATE OF EXAM: 10/21/2022 5:44 AM COMPARISON: Chest radiograph from one day prior. TECHNIQUE: XR chest 1V portable Portable AP radiograph of the chest. CLINICAL INDICATION:Female, 67 years old with history of Tube placement; FINDINGS: Lungs/Pleura: No evidence of focal consolidation or pneumothorax. Blunting of the costophrenic angles is present. Pulmonary vascularity: Pulmonary vascular congestion. Heart/mediastinum: Cardiomediastinal silhouette is enlarged and stable. Musculoskeletal: No acute osseous pathology. Midline sternotomy wires are noted. Other findings: None Lines/Tubes: Endotracheal tube with distal tip 4.5 cm above the maciel. Nasogastric tube with its distal tip and side-port projecting under the diaphragm. Left central venous catheter with distal tip at the cavoatrial junction. IMPRESSION: 1. Cardiomegaly with pulmonary vascular congestion and bilateral pleural effusions. 2. Endotracheal tube in appropriate position.
[2022-10-21] MEDS ORDERED: AMIODARONE 200 MG TAB PO SCH (09:00)
[2022-10-21] MEDS ORDERED: PANTOPRAZOLE 40 MG/10 ML VIAL IVP SCH (09:00)
[2022-10-21] MEDS: CHLORHEXIDINE GLUCONATE 15 ML CUP MUCOUS MEM SCH (09:02)
[2022-10-21] MEDS: LEVOTHYROXINE IVP 100 MCG/5 ML VIAL IV SCH (09:02)
--- NOTE | 2022-10-21 10:09 | P.PN ---
Subjective Progress Note Date: 10/21/22 This is a pleasant 67-year-old female patient with a known history of atrial fibrillation anticoagulation with warfarin, obesity, congestive heart failure, hypertension, hypothyroidism, right retinal vein occlusion with blindness. She also has a history of Marfan syndrome and has had aortic valve replacement with mechanical valve and repair an ascending aortic aneurysm 45 years ago at [facility]. She had a descending aortic aneurysm repair here years ago. Presented here to the emergency room yesterday with complaints of increasing shortness of breath, lower extremity edema. Last echocardiogram from here in 2017 revealed moderately impaired left ventricular systolic function with ejection fraction 35-40%. Normally functioning mechanical prosthetic valve. Chest x-ray reveals a chronic right basilar consolidation/atelectasis and elevation of the right hemidiaphragm with chronic mild pulmonary congestion and persistent cardiomegaly. Unchanged compared to a previous of April 2022. EKG reveals atrial fibrillation. Presenting INR greater than 10. Initial hemoglobin 6.8. She did receive 1 unit of packed red blood cells and current hemoglobin 7.8. White count 9.2. Platelets 197. INR 6.9 following a dose of vitamin K. Sodium 135. Potassium 5.4. BUN 51. Creatinine 2.81. Glucose 111. Cortisol level 28. TSH 9.2. Free T4 2 0.17. She is seen today in consultation in the intensive care unit. She is currently on BiPAP 10/5 and 40% FiO2. She has normal saline at 20 mL per hour. She is also requiring norepinephrine at 14 mcg/m. [place] blood gas revealed a bicarb of 30, pCO2 of 74 and a pH of 7.23. She did receive 1.5 L of fluid resuscitation yesterday. She was given Lasix 20 mg IVP 1 this a.m. Is awake and alert. Requesting to be off the BiPAP. We'll transition her to nasal cannula as tolerated The patient is seen today 10/20/2022 in follow-up in the intensive care unit. She is currently resting in bed. She remains on BiPAP 10/5 and 60% FiO2 to maintain O2 saturations in the low 90s. She has normal saline at 75 miles per hour. She is requiring norepinephrine currently at 48 mcg/m, vasopressin at 0.04 units per minute. She did require 1 unit of packed red blood cells this morning for a hemoglobin of 6.7. Her INR is down to 4.6 today. White count 13.2. Platelets 201. Sodium 136. Potassium 5.3. BUN 50. Creatinine 2.44. Glucose 126. Urine culture pending. She's currently on ceftriaxone. She received Lasix 40 mg IVP 1. She was treated for hyperkalemia of 5.5 earlier. She has been having arrhythmias in the form of frequent PVCs and bigeminy. Echocardiogram reveals moderate global left ventricular systolic impairment with ejection fraction of 30-35%. There is significant dilatation of the right ventricle with severe pulmonary hypertension and RVSP of 81 mmHg. Chest x-ray reveals moderate cardiomegaly and possible underlying pulmonary vascular congestion. Ongoing marketed asymmetric elevation of the right hemidiaphragm. The patient is seen today 10/21/2022 in follow-up in the intensive care unit. Yesterday she had developed decrease in alertness, becoming more obtunded, hypoxemia and subsequently required intubation and mechanical ventilatory support. She is currently on assist control mode at a rate of 20, tidal volume 500, FiO2 50% and a PEEP of 5. Morning blood gases reveal a P O2 of 79, pCO2 36, pH 7.39. Ventilatory complaints is at 24. Plateau 26. Airway resistance of 8. She is sedated with propofol 50 mcg/kg/m. Currently on norepinephrine at 0.5 mcg/kg/m. She has been off the vasopressin since approximate 10 PM. She has normal saline at 75 ML's per hour. Her pro-calcitonin was 10.4. She remains on antibiotics in the form of cefepime and daptomycin. Urine culture is positive for gram-negative bacilli. White count 14.7. Hemoglobin 7.1. Platelets 20,000. INR 4.9. Sodium 135. Potassium 5.1. Bicarb 20. BUN 505. Creatinine 2.15. Glucose 157. Stevenson virus by PCR not detected. Chest x-ray continues to revealed cardiomegaly with pulmonary vascular congestion and bilateral pleural effusions. Endotracheal tube in proper position. Nasogastric tube in proper position. She is status post 2 units of packed red blood cells this admission. She developed atrial fibrillation with rapid ventricular response requiring amiodarone drip. Being transitioned to oral amiodarone today. She was given Lasix 40 mg IVP 1 this morning. Currently in a +2.7 L balance. Tube feedings for nutritional support will be initiated. Objective - Vital Signs Vital signs: Vital Signs Temp 99.7 F H 10/21/22 04:00 Pulse 133 H 10/21/22 07:00 Resp 20 10/21/22 07:00 BP 97/32 10/21/22 01:00 Pulse Ox 97 10/21/22 07:00 FiO2 50 10/21/22 07:31 Intake & Output 10/20/22 10/21/22 10/21/22 18:59 06:59 18:59 Intake Total 6471.313 7207.401 399.646 Output Total 215 605 75 Balance 2007.513 2678.401 324.646 Weight 161.7 kg Intake: IV 1012.5 962.5 75 Cefepime 1 gm In Sodium 12.5 62.5 Chloride 0.9% 50 ml @ 12. 5 mls/hr IVPB Q12H [facility] Rx #:[id number] DAPTOmycin 600 mg In 50 Sodium Chloride 0.9% 50 ml @ 100 mls/hr IVPB Q48H [facility] Rx#:[id number] IV Fluid 900 900 75 cefTRIAXone 1 gm In 50 Sodium Chloride 0.9% 50 ml @ 100 mls/hr IVPB Q24HR [facility] Rx#:[id number] Intake, IV Titration 603.109 696.901 324.646 Amount Norepinephrine 32 mg In 182.782 224.193 235.186 Sodium Chloride 0.9% 218 ml @ 0.4 MCG/KG/MIN 26. 625 mls/hr IV .Q9H24M [facility] Rx#:[id number] Norepinephrine 8 mg In 356.710 Sodium Chloride 0.9% 250 ml @ 0.03 MCG/KG/MIN 8. 165 mls/hr IV .Q24H [facility] Rx#:[id number] Vasopressin 20 unit In 48.068 43.197 Sodium Chloride 0.9% 50 ml @ 0.03 UNITS/MIN 4.59 mls/hr IV .Q11H7M [facility] Rx# :[id number] propofoL 1,000 mg In 15.549 429.511 89.46 Empty Bag 1 bag @ 15 MCG/ KG/MIN 12.78 mls/hr IV . Q7H50M [facility] Rx#:[id number] Blood Product 310 Rc As-1 Unit 310 [id number] Output: Urine 215 605 75 Other: Voiding Method Indwelling Catheter Indwelling Catheter ABP, PAP, CO, CI - Last Documented Arterial Blood Pressure 116/43 - Exam GENERAL EXAM: Intubated, sedated 67-year-old female, on 50% FiO2 with PEEP of 5, comfortable in no apparent distress. HEAD: Features of Marfan syndrome. EYES: Normal reaction of pupils, equal size. NOSE: Clear with pink turbinates. THROAT: Oral and endotracheal and gastric tubes secured in place. No erythema or exudates. NECK: No masses, no JVD. CHEST: No chest wall deformity. LUNGS: Equal air entry with crackles in the bilateral bases. CVS: S1 and S2 normal with no audible murmur, prosthetic click heard, irregular rhythm. ABDOMEN: No hepatosplenomegaly, normal bowel sounds, no guarding or rigidity. SPINE: Noted scoliosis SKIN: No rashes CENTRAL NERVOUS SYSTEM: Sedated, tone is normal in all 4 extremities. EXTREMITIES: There is 1+ peripheral edema. No clubbing, no cyanosis. Peripheral pulses are intact. - Labs CBC & Chem 7: 10/21/22 04:45 10/21/22 04:45 Labs: Abnormal Lab Results - Last 24 Hours (Table) 10/18/22 10/19/22 10/20/22 Range/Units 21:42 08:13 11:27 WBC (3.8-10.6) k/uL RBC (3.80-5.40) m/uL Hgb (11.4-16.0) gm/dL Hct (34.0-46.0) % MCHC (31.0-37.0) g/dL RDW (11.5-15.5) % Neutrophils # (1.3-7.7) k/uL Lymphocytes # (1.0-4.8) k/uL ESR 46 H (0-20) mm/hr PT (9.0-12.0) sec INR (<1.2) ABG pH (7.35-7.45) ABG pCO2 (35-45) mmHg ABG pO2 (83-108) mmHg ABG Total CO2 (19-24) mmol/L ABG O2 Saturation (94-97) % Sodium (137-145) mmol/L Potassium (3.5-5.1) mmol/L Carbon Dioxide (22-30) mmol/L BUN (7-17) mg/dL Creatinine (0.52-1.04) mg/dL Glucose (74-99) mg/dL POC Glucose (mg/dL) (70-110) mg/dL Calcium (8.4-10.2) mg/dL C-Reactive Protein (<1.0) mg/dL Procalcitonin 10.40 H (0.02-0.09) ng/mL Crossmatch See Detail 10/20/22 10/20/22 10/20/22 Range/Units 11:27 11:27 11:34 WBC 14.6 H (3.8-10.6) k/uL RBC 2.74 L (3.80-5.40) m/uL Hgb 7.6 L (11.4-16.0) gm/dL Hct 25.2 L (34.0-46.0) % MCHC 30.3 L (31.0-37.0) g/dL RDW 16.9 H (11.5-15.5) % Neutrophils # (1.3-7.7) k/uL Lymphocytes # (1.0-4.8) k/uL ESR (0-20) mm/hr PT (9.0-12.0) sec INR (<1.2) ABG pH 7.11 L* (7.35-7.45) ABG pCO2 77 H* (35-45) mmHg ABG pO2 170 H (83-108) mmHg ABG Total CO2 27 H (19-24) mmol/L ABG O2 Saturation 100.0 H (94-97) % Sodium (137-145) mmol/L Potassium (3.5-5.1) mmol/L Carbon Dioxide (22-30) mmol/L BUN (7-17) mg/dL Creatinine (0.52-1.04) mg/dL Glucose (74-99) mg/dL POC Glucose (mg/dL) (70-110) mg/dL Calcium (8.4-10.2) mg/dL C-Reactive Protein 4.9 H (<1.0) mg/dL Procalcitonin (0.02-0.09) ng/mL Crossmatch 10/20/22 10/20/22 10/20/22 Range/Units 17:12 18:05 18:05 WBC 14.9 H (3.8-10.6) k/uL RBC 2.67 L (3.80-5.40) m/uL Hgb 7.3 L (11.4-16.0) gm/dL Hct 25.2 L (34.0-46.0) % MCHC 29.0 L (31.0-37.0) g/dL RDW 17.7 H (11.5-15.5) % Neutrophils # (1.3-7.7) k/uL Lymphocytes # (1.0-4.8) k/uL ESR (0-20) mm/hr PT (9.0-12.0) sec INR (<1.2) ABG pH 7.13 L* (7.35-7.45) ABG pCO2 68 H (35-45) mmHg ABG pO2 116 H (83-108) mmHg ABG Total CO2 25 H (19-24) mmol/L ABG O2 Saturation 99.2 H (94-97) % Sodium (137-145) mmol/L Potassium 5.4 H (3.5-5.1) mmol/L Carbon Dioxide 21 L (22-30) mmol/L BUN 49 H (7-17) mg/dL Creatinine 2.45 H (0.52-1.04) mg/dL Glucose 131 H (74-99) mg/dL POC Glucose (mg/dL) (70-110) mg/dL Calcium 7.4 L (8.4-10.2) mg/dL C-Reactive Protein (<1.0) mg/dL Procalcitonin (0.02-0.09) ng/mL Crossmatch 10/20/22 10/20/22 10/21/22 Range/Units 19:23 23:24 04:45 WBC 14.7 H (3.8-10.6) k/uL RBC 2.62 L (3.80-5.40) m/uL Hgb 7.1 L (11.4-16.0) gm/dL Hct 23.6 L (34.0-46.0) % MCHC 30.0 L (31.0-37.0) g/dL RDW 18.2 H (11.5-15.5) % Neutrophils # 12.8 H (1.3-7.7) k/uL Lymphocytes # 0.6 L (1.0-4.8) k/uL ESR (0-20) mm/hr PT (9.0-12.0) sec INR (<1.2) ABG pH 7.29 L (7.35-7.45) ABG pCO2 (35-45) mmHg ABG pO2 346 H (83-108) mmHg ABG Total CO2 (19-24) mmol/L ABG O2 Saturation 100.0 H (94-97) % Sodium (137-145) mmol/L Potassium (3.5-5.1) mmol/L Carbon Dioxide (22-30) mmol/L BUN (7-17) mg/dL Creatinine (0.52-1.04) mg/dL Glucose (74-99) mg/dL POC Glucose (mg/dL) 162 H (70-110) mg/dL Calcium (8.4-10.2) mg/dL C-Reactive Protein (<1.0) mg/dL Procalcitonin (0.02-0.09) ng/mL Crossmatch 10/21/22 10/21/22 10/21/22 Range/Units 04:45 05:37 05:54 WBC (3.8-10.6) k/uL RBC (3.80-5.40) m/uL Hgb (11.4-16.0) gm/dL Hct (34.0-46.0) % MCHC (31.0-37.0) g/dL RDW (11.5-15.5) % Neutrophils # (1.3-7.7) k/uL Lymphocytes # (1.0-4.8) k/uL ESR (0-20) mm/hr PT (9.0-12.0) sec INR (<1.2) ABG pH (7.35-7.45) ABG pCO2 (35-45) mmHg ABG pO2 79 L (83-108) mmHg ABG Total CO2 (19-24) mmol/L ABG O2 Saturation 97.5 H (94-97) % Sodium 135 L (137-145) mmol/L Potassium (3.5-5.1) mmol/L Carbon Dioxide 20 L (22-30) mmol/L BUN 50 H (7-17) mg/dL Creatinine 2.15 H (0.52-1.04) mg/dL Glucose 157 H (74-99) mg/dL POC Glucose (mg/dL) 173 H (70-110) mg/dL Calcium 7.5 L (8.4-10.2) mg/dL C-Reactive Protein (<1.0) mg/dL Procalcitonin (0.02-0.09) ng/mL Crossmatch 10/21/22 Range/Units 07:33 WBC (3.8-10.6) k/uL RBC (3.80-5.40) m/uL Hgb (11.4-16.0) gm/dL Hct (34.0-46.0) % MCHC (31.0-37.0) g/dL RDW (11.5-15.5) % Neutrophils # (1.3-7.7) k/uL Lymphocytes # (1.0-4.8) k/uL ESR (0-20) mm/hr PT 48.1 H (9.0-12.0) sec INR 4.9 H (<1.2) ABG pH (7.35-7.45) ABG pCO2 (35-45) mmHg ABG pO2 (83-108) mmHg ABG Total CO2 (19-24) mmol/L ABG O2 Saturation (94-97) % Sodium (137-145) mmol/L Potassium (3.5-5.1) mmol/L Carbon Dioxide (22-30) mmol/L BUN (7-17) mg/dL Creatinine (0.52-1.04) mg/dL Glucose (74-99) mg/dL POC Glucose (mg/dL) (70-110) mg/dL Calcium (8.4-10.2) mg/dL C-Reactive Protein (<1.0) mg/dL Procalcitonin (0.02-0.09) ng/mL Crossmatch Microbiology - Last 24 Hours (Table) 10/20/22 19:44 Gram Stain - Preliminary Sputum Sputum Culture - Preliminary 10/19/22 11:16 Urine Culture - Preliminary Urine,Voided Gram Neg Bacilli Assessment and Plan Assessment: Acute hypoxemic respiratory failure secondary to acute exacerbation of systolic congestive heart failure and echocardiogram reveals moderately reduced global left ventricular systolic function with estimated ejection fraction 30-35%. Severe right ventricular dilatation with severe pulmonary hypertension with an RVSP of 81 mmHg. Mild prosthetic aortic valve regurgitation. Acute hypercapnic respiratory failure secondary to above requiring intubation mechanical ventilatory support on 10/20/2022 Septic shock with hypotension requiring pressor support Acute anemia with a hemoglobin of 6.7, status post 2 unit of packed red blood cells follow-up hemoglobin 7.1 Atrial fibrillation with a rapid ventricular response requiring amiodarone infusion, transitioned to by mouth Hypercoagulopathy with presenting INR greater than 10, received vitamin K, current INR 4.9 Urinary tract infection secondary to gram-negative bacilli Acute renal failure, current creatinine 2.15, GFR 23 Hyperkalemia secondary to above, current potassium 5.1 Hypothyroidism, subtherapeutic, initiated Synthroid 100 g IV daily History of Marfan syndrome, has been following at the [facility] History of aortic valve replacement and repair of ascending aortic aneurysm nearly 45 years ago at [facility] History of repair of descending aortic aneurysm at this facility years ago History of right retinal vein occlusion with blindness Osteoarthritis Hypertension Plan: The patient was seen and evaluated Chest x-ray, ABGs, medications and labs reviewed Now intubated on the mechanical ventilator Decrease the tidal volume to 400 Initiate DuoNeb inhalations every 4 hours Remains on norepinephrine, vasopressin currently off Lasix 40 mg IVP 1 Add Protonix for GI prophylaxis Currently on cefepime and daptomycin Cardiology plans for CAROL today or tomorrow Following that tube feedings will be initiated Will require transfer to a tertiary care center She has been following at the [facility], no beds available Prognosis remains guarded We will continue to follow and make further recommendations based on her clinical status I have personally seen and examined the patient, performed the documentation and the assessment and plan as written. Number of minutes spent on the visit: 10.
[2022-10-21 11:12] VITALS: BMI 51.1
[2022-10-21] MEDS ORDERED: IPRATROPIUM-ALBUTEROL 3 ML NEB INHALATION SCH (12:00)
--- NOTE | 2022-10-21 12:08 | P.PN ---
Subjective Patient is seen for follow-up for acute kidney injury. She was admitted to the hospital with weakness and abdominal pain. History of cardiomyopathy and chronic systolic CHF along with aortic valve replacement with metallic valve. Patient became significantly hypotensive yesterday requiring levo fed and vasopressin. Urine was noted to be milky and patient has been started on Rocephin. She received 2 L of fluid bolus and is currently maintained on saline at 75 mL an hour. Hemoglobin was 6.9 and patient has been transfused packed RBCs. No active bleeding noted currently. Stool for occult blood negative. There is concern for underlying endocarditis with history of metallic valve Patient was intubated last night. Urine output has improved. Currently off of vasopressin. Levo fed at about 40 mics. Plans for possible transfer to tertiary care center. Objective - Vital Signs Vital signs: Vital Signs Temp 99.8 F H 10/21/22 08:00 Pulse 134 H 10/21/22 11:30 Resp 23 10/21/22 11:30 BP 97/32 10/21/22 11:30 Pulse Ox 96 10/21/22 11:30 FiO2 50 10/21/22 10:51 Intake & Output 10/20/22 10/21/22 10/21/22 18:59 06:59 18:59 Intake Total 5758.798 6170.401 399.646 Output Total 215 605 290 Balance 9663.984 7892.401 109.646 Weight 161.7 kg 161.7 kg Intake: IV 1012.5 962.5 75 Cefepime 1 gm In Sodium 12.5 62.5 Chloride 0.9% 50 ml @ 12. 5 mls/hr IVPB Q12H [facility] Rx #:[id number] DAPTOmycin 600 mg In 50 Sodium Chloride 0.9% 50 ml @ 100 mls/hr IVPB Q48H [facility] Rx#:[id number] IV Fluid 900 900 75 cefTRIAXone 1 gm In 50 Sodium Chloride 0.9% 50 ml @ 100 mls/hr IVPB Q24HR [facility] Rx#:[id number] Intake, IV Titration 603.109 696.901 324.646 Amount Norepinephrine 32 mg In 182.782 224.193 235.186 Sodium Chloride 0.9% 218 ml @ 0.4 MCG/KG/MIN 26. 625 mls/hr IV .Q9H24M [facility] Rx#:[id number] Norepinephrine 8 mg In 356.710 Sodium Chloride 0.9% 250 ml @ 0.03 MCG/KG/MIN 8. 165 mls/hr IV .Q24H [facility] Rx#:[id number] Vasopressin 20 unit In 48.068 43.197 Sodium Chloride 0.9% 50 ml @ 0.03 UNITS/MIN 4.59 mls/hr IV .Q11H7M [facility] Rx# :[id number] propofoL 1,000 mg In 15.549 429.511 89.46 Empty Bag 1 bag @ 15 MCG/ KG/MIN 12.78 mls/hr IV . Q7H50M [facility] Rx#:[id number] Blood Product 310 Rc As-1 Unit 310 [id number] Output: Urine 215 605 290 Other: Voiding Method Indwelling Catheter Indwelling Catheter Indwelling Catheter ABP, PAP, CO, CI - Last Documented Arterial Blood Pressure 98/39 - Exam Patient is sedated and on the vent Examination of the heart S1 and S2 with metallic valve noted Examination lungs shows decreased breath sounds at the bases Abdomen is soft obese nontender Examination of lower extremities shows edema 2+ bilaterally with chronic skin changes - Labs CBC & Chem 7: 10/21/22 04:45 10/21/22 04:45 Labs: Abnormal Lab Results - Last 24 Hours (Table) 10/19/22 10/20/22 10/20/22 Range/Units 08:13 11:27 17:12 WBC (3.8-10.6) k/uL RBC (3.80-5.40) m/uL Hgb (11.4-16.0) gm/dL Hct (34.0-46.0) % MCHC (31.0-37.0) g/dL RDW (11.5-15.5) % Neutrophils # (1.3-7.7) k/uL Lymphocytes # (1.0-4.8) k/uL ESR 46 H (0-20) mm/hr PT (9.0-12.0) sec INR (<1.2) ABG pH 7.13 L* (7.35-7.45) ABG pCO2 68 H (35-45) mmHg ABG pO2 116 H (83-108) mmHg ABG Total CO2 25 H (19-24) mmol/L ABG O2 Saturation 99.2 H (94-97) % Sodium (137-145) mmol/L Potassium (3.5-5.1) mmol/L Carbon Dioxide (22-30) mmol/L BUN (7-17) mg/dL Creatinine (0.52-1.04) mg/dL Glucose (74-99) mg/dL POC Glucose (mg/dL) (70-110) mg/dL Calcium (8.4-10.2) mg/dL Procalcitonin 10.40 H (0.02-0.09) ng/mL 10/20/22 10/20/22 10/20/22 Range/Units 18:05 18:05 19:23 WBC 14.9 H (3.8-10.6) k/uL RBC 2.67 L (3.80-5.40) m/uL Hgb 7.3 L (11.4-16.0) gm/dL Hct 25.2 L (34.0-46.0) % MCHC 29.0 L (31.0-37.0) g/dL RDW 17.7 H (11.5-15.5) % Neutrophils # (1.3-7.7) k/uL Lymphocytes # (1.0-4.8) k/uL ESR (0-20) mm/hr PT (9.0-12.0) sec INR (<1.2) ABG pH 7.29 L (7.35-7.45) ABG pCO2 (35-45) mmHg ABG pO2 346 H (83-108) mmHg ABG Total CO2 (19-24) mmol/L ABG O2 Saturation 100.0 H (94-97) % Sodium (137-145) mmol/L Potassium 5.4 H (3.5-5.1) mmol/L Carbon Dioxide 21 L (22-30) mmol/L BUN 49 H (7-17) mg/dL Creatinine 2.45 H (0.52-1.04) mg/dL Glucose 131 H (74-99) mg/dL POC Glucose (mg/dL) (70-110) mg/dL Calcium 7.4 L (8.4-10.2) mg/dL Procalcitonin (0.02-0.09) ng/mL 10/20/22 10/21/22 10/21/22 Range/Units 23:24 04:45 04:45 WBC 14.7 H (3.8-10.6) k/uL RBC 2.62 L (3.80-5.40) m/uL Hgb 7.1 L (11.4-16.0) gm/dL Hct 23.6 L (34.0-46.0) % MCHC 30.0 L (31.0-37.0) g/dL RDW 18.2 H (11.5-15.5) % Neutrophils # 12.8 H (1.3-7.7) k/uL Lymphocytes # 0.6 L (1.0-4.8) k/uL ESR (0-20) mm/hr PT (9.0-12.0) sec INR (<1.2) ABG pH (7.35-7.45) ABG pCO2 (35-45) mmHg ABG pO2 (83-108) mmHg ABG Total CO2 (19-24) mmol/L ABG O2 Saturation (94-97) % Sodium 135 L (137-145) mmol/L Potassium (3.5-5.1) mmol/L Carbon Dioxide 20 L (22-30) mmol/L BUN 50 H (7-17) mg/dL Creatinine 2.15 H (0.52-1.04) mg/dL Glucose 157 H (74-99) mg/dL POC Glucose (mg/dL) 162 H (70-110) mg/dL Calcium 7.5 L (8.4-10.2) mg/dL Procalcitonin (0.02-0.09) ng/mL 10/21/22 10/21/22 10/21/22 Range/Units 05:37 05:54 07:33 WBC (3.8-10.6) k/uL RBC (3.80-5.40) m/uL Hgb (11.4-16.0) gm/dL Hct (34.0-46.0) % MCHC (31.0-37.0) g/dL RDW (11.5-15.5) % Neutrophils # (1.3-7.7) k/uL Lymphocytes # (1.0-4.8) k/uL ESR (0-20) mm/hr PT 48.1 H (9.0-12.0) sec INR 4.9 H (<1.2) ABG pH (7.35-7.45) ABG pCO2 (35-45) mmHg ABG pO2 79 L (83-108) mmHg ABG Total CO2 (19-24) mmol/L ABG O2 Saturation 97.5 H (94-97) % Sodium (137-145) mmol/L Potassium (3.5-5.1) mmol/L Carbon Dioxide (22-30) mmol/L BUN (7-17) mg/dL Creatinine (0.52-1.04) mg/dL Glucose (74-99) mg/dL POC Glucose (mg/dL) 173 H (70-110) mg/dL Calcium (8.4-10.2) mg/dL Procalcitonin (0.02-0.09) ng/mL Microbiology - Last 24 Hours (Table) 10/20/22 19:44 Gram Stain - Preliminary Sputum Sputum Culture - Preliminary 10/19/22 11:16 Urine Culture - Preliminary Urine,Voided Gram Neg Bacilli Assessment and Plan Assessment: 1. Acute kidney injury secondary to hypotension and shock pain, oliguric initially with some improvement in urine output. Renal function has improved 2. Hypotension from most likely septic shock from underlying UTI. Possibility of endocarditis being entertained given the metallic valve. 3. History of CHF, systolic with ejection fraction 35% with severe tricuspid regurgitation. 4. Valvular heart disease status post metallic aortic valve replacement 5. Anemia with stool for occult blood positive with hemoglobin of 6.8 on initial admission status post packed RBCs transfusion. INR was 6.9 6. Acute hypoxic respiratory failure currently on the vent Plan: Continue IV fluids Try to wean off pressors as tolerated Continue antibiotics as per ID
[2022-10-21 12:10] LABS: Glucose,Whole Blood 191 mg/dL (70-110)
[2022-10-21 12:15] VITALS: TEMP 100
[2022-10-21 13:41] VITALS: PULSE 147; RESP 27
--- NOTE | 2022-10-21 14:03 | P.PN ---
Subjective Progress Note Date: 10/21/22 Principal diagnosis: Possible prosthetic valve endocarditis The patient is a 67-year-old female patient with a past medical history significant for Marfan syndrome as well as valvular heart disease status post aortic valve replacement using mechanical valve 45 years ago along with ascending aortic aneurysm repair at that point and also history of cardiomyopathy, patient also have a history of hypertension and Atrial fibrillation hypothyroidism, patient presented to the ER on 10/18/2022 for evaluation of increasing shortness of breath, noticed to have in the some stenosis of the prosthetic aortic valve and concern for possible prosthetic valve endocarditis. On today's evaluation that is 10/21/2022, the patient did have a low-grade fever 100F at noon, patient went into respiratory distress and getting intubated currently on 50% FiO2, the patient is currently hemodynamically stable not requiring pressor support with the nursing staff, no purulent secretion through the ET or diarrhea reported Objective - Vital Signs Vital signs: Vital Signs Temp 100 F H 10/21/22 12:00 Pulse 125 H 10/21/22 12:00 Resp 22 10/21/22 12:00 BP 97/32 10/21/22 12:00 Pulse Ox 96 10/21/22 12:00 FiO2 50 10/21/22 10:51 Intake & Output 10/20/22 10/21/22 10/21/22 18:59 06:59 18:59 Intake Total 0412.986 8964.401 399.646 Output Total 215 605 430 Balance 8361.520 3570.401 -30.354 Weight 161.7 kg 161.7 kg Intake: IV 1012.5 962.5 75 Cefepime 1 gm In Sodium 12.5 62.5 Chloride 0.9% 50 ml @ 12. 5 mls/hr IVPB Q12H [facility] Rx #:[id number] DAPTOmycin 600 mg In 50 Sodium Chloride 0.9% 50 ml @ 100 mls/hr IVPB Q48H [facility] Rx#:[id number] IV Fluid 900 900 75 cefTRIAXone 1 gm In 50 Sodium Chloride 0.9% 50 ml @ 100 mls/hr IVPB Q24HR [facility] Rx#:[id number] Intake, IV Titration 603.109 696.901 324.646 Amount Norepinephrine 32 mg In 182.782 224.193 235.186 Sodium Chloride 0.9% 218 ml @ 0.4 MCG/KG/MIN 26. 625 mls/hr IV .Q9H24M [facility] Rx#:[id number] Norepinephrine 8 mg In 356.710 Sodium Chloride 0.9% 250 ml @ 0.03 MCG/KG/MIN 8. 165 mls/hr IV .Q24H [facility] Rx#:[id number] Vasopressin 20 unit In 48.068 43.197 Sodium Chloride 0.9% 50 ml @ 0.03 UNITS/MIN 4.59 mls/hr IV .Q11H7M [facility] Rx# :[id number] propofoL 1,000 mg In 15.549 429.511 89.46 Empty Bag 1 bag @ 15 MCG/ KG/MIN 12.78 mls/hr IV . Q7H50M [facility] Rx#:[id number] Blood Product 310 Rc As-1 Unit 310 [id number] Output: Urine 215 605 430 Other: Voiding Method Indwelling Catheter Indwelling Catheter Indwelling Catheter ABP, PAP, CO, CI - Last Documented Arterial Blood Pressure 100/40 - Exam GENERAL DESCRIPTION: An elderly female intubated on the vent RESPIRATORY SYSTEM: Unlabored breathing , decreased breath sounds at bases HEART: S1 S2 regular rate and rhythm , ABDOMEN: Soft , no tenderness EXTREMITIES: 2+ edema feet - Labs CBC & Chem 7: 10/21/22 04:45 10/21/22 04:45 Labs: Abnormal Lab Results - Last 24 Hours (Table) 10/19/22 10/20/22 10/20/22 Range/Units 08:13 11:27 17:12 WBC (3.8-10.6) k/uL RBC (3.80-5.40) m/uL Hgb (11.4-16.0) gm/dL Hct (34.0-46.0) % MCHC (31.0-37.0) g/dL RDW (11.5-15.5) % Neutrophils # (1.3-7.7) k/uL Lymphocytes # (1.0-4.8) k/uL ESR 46 H (0-20) mm/hr PT (9.0-12.0) sec INR (<1.2) ABG pH 7.13 L* (7.35-7.45) ABG pCO2 68 H (35-45) mmHg ABG pO2 116 H (83-108) mmHg ABG Total CO2 25 H (19-24) mmol/L ABG O2 Saturation 99.2 H (94-97) % Sodium (137-145) mmol/L Potassium (3.5-5.1) mmol/L Carbon Dioxide (22-30) mmol/L BUN (7-17) mg/dL Creatinine (0.52-1.04) mg/dL Glucose (74-99) mg/dL POC Glucose (mg/dL) (70-110) mg/dL Calcium (8.4-10.2) mg/dL Procalcitonin 10.40 H (0.02-0.09) ng/mL 10/20/22 10/20/22 10/20/22 Range/Units 18:05 18:05 :23 WBC 14.9 H (3.8-10.6) k/uL RBC 2.67 L (3.80-5.40) m/uL Hgb 7.3 L (11.4-16.0) gm/dL Hct 25.2 L (34.0-46.0) % MCHC 29.0 L (31.0-37.0) g/dL RDW 17.7 H (11.5-15.5) % Neutrophils # (1.3-7.7) k/uL Lymphocytes # (1.0-4.8) k/uL ESR (0-20) mm/hr PT (9.0-12.0) sec INR (<1.2) ABG pH 7.29 L (7.35-7.45) ABG pCO2 (35-45) mmHg ABG pO2 346 H (83-108) mmHg ABG Total CO2 (19-24) mmol/L ABG O2 Saturation 100.0 H (94-97) % Sodium (137-145) mmol/L Potassium 5.4 H (3.5-5.1) mmol/L Carbon Dioxide 21 L (22-30) mmol/L BUN 49 H (7-17) mg/dL Creatinine 2.45 H (0.52-1.04) mg/dL Glucose 131 H (74-99) mg/dL POC Glucose (mg/dL) (70-110) mg/dL Calcium 7.4 L (8.4-10.2) mg/dL Procalcitonin (0.02-0.09) ng/mL 10/20/22 10/21/22 10/21/22 Range/Units 23:24 04:45 04:45 WBC 14.7 H (3.8-10.6) k/uL RBC 2.62 L (3.80-5.40) m/uL Hgb 7.1 L (11.4-16.0) gm/dL Hct 23.6 L (34.0-46.0) % MCHC 30.0 L (31.0-37.0) g/dL RDW 18.2 H (11.5-15.5) % Neutrophils # 12.8 H (1.3-7.7) k/uL Lymphocytes # 0.6 L (1.0-4.8) k/uL ESR (0-20) mm/hr PT (9.0-12.0) sec INR (<1.2) ABG pH (7.35-7.45) ABG pCO2 (35-45) mmHg ABG pO2 (83-108) mmHg ABG Total CO2 (19-24) mmol/L ABG O2 Saturation (94-97) % Sodium 135 L (137-145) mmol/L Potassium (3.5-5.1) mmol/L Carbon Dioxide 20 L (22-30) mmol/L BUN 50 H (7-17) mg/dL Creatinine 2.15 H (0.52-1.04) mg/dL Glucose 157 H (74-99) mg/dL POC Glucose (mg/dL) 162 H (70-110) mg/dL Calcium 7.5 L (8.4-10.2) mg/dL Procalcitonin (0.02-0.09) ng/mL 10/21/22 10/21/22 10/21/22 Range/Units 05:37 05:54 07:33 WBC (3.8-10.6) k/uL RBC (3.80-5.40) m/uL Hgb (11.4-16.0) gm/dL Hct (34.0-46.0) % MCHC (31.0-37.0) g/dL RDW (11.5-15.5) % Neutrophils # (1.3-7.7) k/uL Lymphocytes # (1.0-4.8) k/uL ESR (0-20) mm/hr PT 48.1 H (9.0-12.0) sec INR 4.9 H (<1.2) ABG pH (7.35-7.45) ABG pCO2 (35-45) mmHg ABG pO2 79 L (83-108) mmHg ABG Total CO2 (19-24) mmol/L ABG O2 Saturation 97.5 H (94-97) % Sodium (137-145) mmol/L Potassium (3.5-5.1) mmol/L Carbon Dioxide (22-30) mmol/L BUN (7-17) mg/dL Creatinine (0.52-1.04) mg/dL Glucose (74-99) mg/dL POC Glucose (mg/dL) 173 H (70-110) mg/dL Calcium (8.4-10.2) mg/dL Procalcitonin (0.02-0.09) ng/mL 10/21/22 Range/Units 11:58 WBC (3.8-10.6) k/uL RBC (3.80-5.40) m/uL Hgb (11.4-16.0) gm/dL Hct (34.0-46.0) % MCHC (31.0-37.0) g/dL RDW (11.5-15.5) % Neutrophils # (1.3-7.7) k/uL Lymphocytes # (1.0-4.8) k/uL ESR (0-20) mm/hr PT (9.0-12.0) sec INR (<1.2) ABG pH (7.35-7.45) ABG pCO2 (35-45) mmHg ABG pO2 (83-108) mmHg ABG Total CO2 (19-24) mmol/L ABG O2 Saturation (94-97) % Sodium (137-145) mmol/L Potassium (3.5-5.1) mmol/L Carbon Dioxide (22-30) mmol/L BUN (7-17) mg/dL Creatinine (0.52-1.04) mg/dL Glucose (74-99) mg/dL POC Glucose (mg/dL) 191 H (70-110) mg/dL Calcium (8.4-10.2) mg/dL Procalcitonin (0.02-0.09) ng/mL Microbiology - Last 24 Hours (Table) 10/20/22 19:44 Gram Stain - Preliminary Sputum Sputum Culture - Preliminary 10/19/22 11:16 Urine Culture - Preliminary Urine,Voided Gram Neg Bacilli Assessment and Plan (1) SIRS (systemic inflammatory response syndrome) Current Visit: No Status: Acute Code(s): R65.10 - SIRS OF NON-INFECTIOUS ORIGIN W/O ACUTE ORGAN DYSFUNCTION SNOMED Code(s): 575741698 Plan: 1patient is a 67 year female with a past medical history taken from often syndrome in this patient was status post aortic valve replacement 45 years ago now presenting to the hospital with increasing shortness of breath worse in the swelling concerning for CHF, patient did not have any fever during this hospital stay and did have a normal white count initially, patient also have a low hemoglobin and elevated INR on admission, echo mention mild aortic stenosis and regurgitation but no vegetation, prosthetic valve endocarditis less likely but not entirely excluded. 2patient with renal insufficiency her discomfort nephrotoxicity from vancomycin 3blood cultures has been obtained which are currently pending , patient did have elevated CRP sed rate and a pro-calcitonin 4patient benefit from CAROL to better define underlying pathology , however plan is for possible transfer to tertiary care per the nursing staff. 5patient to continue withepime and daptomycin while waiting for the workup to be completed and monitor clinical course closely Family the bedside questions were answered Time with Patient: Less than 30
--- NOTE | 2022-10-21 15:53 | P.DS ---
Providers Date of admission: 10/18/22 20:03 Expected date of discharge: 10/21/22 Attending physician: Dillon Scott Consults: 10/18/22 19:59 Consult Physician Routine Consulting Provider: [facility] Consult Reason/Comments: CHF exas Do you want consulting provider notified?: Yes, Notify in am 10/18/22 21:50 Consult Physician Stat Consulting Provider: Wally Rothman Consult Reason/Comments: CHF exas, hypotensive Do you want consulting provider notified?: Already Contacted 10/19/22 08:06 Consult Physician Urgent Consulting Provider: Spencer Shelley Consult Reason/Comments: Low urine output, elevated creatinine Do you want consulting provider notified?: Yes 10/20/22 07:50 Consult Physician Routine Consulting Provider: Donato Mena Consult Reason/Comments: sepsis Do you want consulting provider notified?: Already Contacted Primary care physician: Dillon Scott [facility] Course: Final diagnoses: Sepsis, septic shock present on admission Hypotension, multifactorial secondary to the above and to anemia, pressor dependent Acute CHF exacerbation, systolic dysfunction Cardiomyopathy, severe, EF 30-35% Severe pulmonary hypertension,RVSP 81 mmHg Acute hypoxic respiratory failure secondary to the above, ventilator dependent Acute anemia status post 2 unit of packed RBCs Hypercoagulopathy, INR on admission greater than 10, status post vitamin K Atrial fibrillation with RVR, currently on amiodarone drip Acute renal failure secondary to hypotension Hyperkalemia secondary to the above Acute UTI, culture reporting gram-negative bacilli Atrial fibrillation, chronic Marfan syndrome Aortic valve replacement, mechanical valve on long-term anticoagulation, supratherapeutic Ascending aortic aneurysm repair Hypertension Hyperlipidemia Hypothyroidism, subtherapeutic Hospital course:This a 67-year-old female with past medical history of Marfan syndrome, atrial fibrillation, heart failure, aortic aneurysm repair, right retinal vein occlusion with blindness and multiple other medical issues presented to the ER with worsening shortness of breath, increased lower extremity edema over the last week. Lactic acid 2. Venous blood gas reported pH 7.23 , pCO2 74, bicarb 30 .Chest x-ray reported chronic right basilar consolidation/atelectasis with elevated right hemidiaphragm, chronic mild pulmonary congestion and persistent cardiomegaly-unchanged from prior. EKG prior atrial fibrillation. Magnesium 2.6. Denies chest pain, palpitations. Denied any fever or chills. Anticoagulated on Coumadin, INR supratherapeutic on admission, greater than 10. Received vitamin K, currently 6.9. Hemoglobin 6.8, stool for occult blood negative, received 1 unit of packed RBCs, current hemoglobin 7.8. BUN 51, creatinine 2.81. Potassium 5.4. TSH 3.4, free T4 2.17 UA reporting many bacteria WBC clumps greater than 182 WBCs/leukocytes negative nitrates. Afebrile, normal WBC. Received fluid resuscitation yesterday, a dose of Lasix 20 IV push this morning. Currently BiPAP dependent, on Levophed. 10/20/2022 Remains BiPAP dependent, unable to wean, maintaining O2 sats in the low 90s.in addition to IV fluid hydration, requiring Levophed and vasopressin drips. Echo reporting LVH with reduced LV systolic function about 35%, severe RV and RA enlargement, prosthetic aortic valve with mild stenosis and mild aortic regurgitation, severe pulmonary hypertension, RVSP 81mmHg . INR decreased to 4.6 Receiving 1 unit of packed RBCs for hemoglobin of 6.7. Denies pain. Afebrile, WBC increased to 14.6 , urine and blood cultures pendin g.Concern for underlying endocarditis, infectious disease consult in place. BUN 50, creatinine 2.44. Potassium 5.3, 90s and 2.4. Telemetry with terrance Holloway. 10/21/2022 yesterday became more obtunded, hypoxic, developed respiratory distress and required intubation. Patient currently mechanical ventilator- dependent with FiO2 50%/+5 of PEEP .chest x-ray pending. During the night, patient developed A. fib with RVR, amiodarone drip initiated. Sodium 135, potassium 5.1 Magnesium 2.2. Continues to require pressor support with Levophed , vasopressin off since last night. Febrile T-max 99.8, and WBC 14.7. Maintained on cefepime and daptomycin as per ID. Urine culture positive for gram-negative bacilli, procalcitonin 10.4. Hemoglobin 7.1, platelets 200, INR 4.9. Bicarb 20, BUN 50, creatinine 2.15. 24 hour I&O reflecting a positive fluid balance. Echo had reported mild stenosis of his prosthetic aortic valve. CAROL pending. Transfer to tertiary care center, [facility], pending bed, secondary to concern for possible prosthetic valve endocarditis in a patient with medical history significant for Marfan syndrome with valvular heart disease status post aortic valve replacement with mechanical valve, ascending aortic aneurysm repair cardiomyopathy. Blood cultures pending. The impression and plan of care has been dictated as directed. : I performed a history and examination of this patient, discussed the same with the dictator. I agree with the dictator's note ,documented as a scribe. Any additional findings or plans will be noted. Patient Condition at Discharge: Stable Plan - Discharge Summary New Discharge Prescriptions: No Action Metoprolol Succinate [Toprol XL] 100 mg PO DAILY Levothyroxine Sodium [Synthroid] 150 mcg PO DAILY Warfarin [Coumadin] 5 mg PO HS Furosemide [Lasix] 40 mg PO BID@0900,1600 Potassium Chloride ER [K-Dur 20] 10 meq PO HS Losartan Potassium 100 mg PO HS Fluticasone Propion/Salmeterol [Advair 250-50 Diskus] 1 puff INHALATION DIRECTED Discharge Medication List Metoprolol Succinate [Toprol XL] 100 mg PO DAILY 12/01/15 [History] Levothyroxine Sodium [Synthroid] 150 mcg PO DAILY 12/02/15 [History] Warfarin [Coumadin] 5 mg PO HS 12/02/15 [History] Fluticasone Propion/Salmeterol [Advair 250-50 Diskus] 1 puff INHALATION DIRECTED 10/18/22 [History] Furosemide [Lasix] 40 mg PO BID@0900,1600 10/18/22 [History] Losartan Potassium 100 mg PO HS 10/18/22 [History] Potassium Chloride ER [K-Dur 20] 10 meq PO HS 10/18/22 [History] Follow up Appointment(s)/Referral(s): Dillon Scott DO [Primary Care Provider] - 1-2 days Activity/Diet/Wound Care/Special Instructions: Transfer to [facility] Discharge Disposition: TRANSFER TO SHORT TERM HOSP
== END 2022-10-21 14:17 | disposition short-term general hospital (02) | DRG 871 ==
LOC: EC 14:33 → 3SCARD 20:03 → 2SICU 22:02
PROVIDERS: ADMIT Family Medicine; ATTEND Family Medicine
PROC: 5A09457 Assistance with Respiratory Ventilation, 24-96 Consecutive Hours, Continuous Positive Airway Pressure (ICD-10-PCS; 2022-10-18)
PROC: 30233N1 Transfusion of Nonautologous Red Blood Cells into Peripheral Vein, Percutaneous Approach (ICD-10-PCS; 2022-10-18)
PROC: 02H633Z Insertion of Infusion Device into Right Atrium, Percutaneous Approach (ICD-10-PCS; 2022-10-19)
PROC: 3E033XZ Introduction of Vasopressor into Peripheral Vein, Percutaneous Approach (ICD-10-PCS; 2022-10-19)
PROC: 03HY32Z Insertion of Monitoring Device into Upper Artery, Percutaneous Approach (ICD-10-PCS; 2022-10-19)
PROC: 4A133J1 Monitoring of Arterial Pulse, Peripheral, Percutaneous Approach (ICD-10-PCS; 2022-10-19)
PROC: 4A133B1 Monitoring of Arterial Pressure, Peripheral, Percutaneous Approach (ICD-10-PCS; 2022-10-19)
PROC: 5A1935Z Respiratory Ventilation, Less than 24 Consecutive Hours (ICD-10-PCS; principal; 2022-10-20)
PROC: 0D9670Z Drainage of Stomach with Drainage Device, Via Natural or Artificial Opening (ICD-10-PCS; 2022-10-20)
PROC: 0BH17EZ Insertion of Endotracheal Airway into Trachea, Via Natural or Artificial Opening (ICD-10-PCS; 2022-10-20)
PROC: 3E0G76Z Introduction of Nutritional Substance into Upper GI, Via Natural or Artificial Opening (ICD-10-PCS; 2022-10-21)
DX: A41.9 Sepsis, unspecified organism (principal); I50.23 Acute on chronic systolic (congestive) heart failure; R65.21 Severe sepsis with septic shock; J96.01 Acute respiratory failure with hypoxia; J96.02 Acute respiratory failure with hypercapnia; N17.9 Acute kidney failure, unspecified; Q87.40 Marfan syndrome, unspecified; I47.20 Ventricular tachycardia, unspecified; I42.9 Cardiomyopathy, unspecified; D68.59 Other primary thrombophilia; I48.20 Chronic atrial fibrillation, unspecified; N39.0 Urinary tract infection, site not specified; J98.11 Atelectasis; Z68.43 Body mass index [BMI] 50.0-59.9, adult; H34.8112 Central retinal vein occlusion, right eye, stable; T82.857A Stenosis of other cardiac prosthetic devices, implants and grafts, initial encounter; I27.20 Pulmonary hypertension, unspecified; I95.9 Hypotension, unspecified; I11.0 Hypertensive heart disease with heart failure; E66.9 Obesity, unspecified; Z20.822 Contact with and (suspected) exposure to COVID-19; Z28.310 Unvaccinated for COVID-19; B96.89 Other specified bacterial agents as the cause of diseases classified elsewhere; D64.9 Anemia, unspecified; E87.5 Hyperkalemia; E78.5 Hyperlipidemia, unspecified; E03.9 Hypothyroidism, unspecified; I49.3 Ventricular premature depolarization; I07.1 Rheumatic tricuspid insufficiency; H54.61 Unqualified visual loss, right eye, normal vision left eye; M41.9 Scoliosis, unspecified; M19.90 Unspecified osteoarthritis, unspecified site; Z79.01 Long term (current) use of anticoagulants; Z79.890 Hormone replacement therapy; Z79.51 Long term (current) use of inhaled steroids; Z79.899 Other long term (current) drug therapy; Z95.2 Presence of prosthetic heart valve; Z71.3 Dietary counseling and surveillance; Y83.1 Surgical operation with implant of artificial internal device as the cause of abnormal reaction of the patient, or of later complication, without mention of misadventure at the time of the procedure; Z88.8 Allergy status to other drugs, medicaments and biological substances
CPT/HCPCS: 36415; 71045; 71046; 76770; 80048; 80053; 81001; 82272; 82533; 82803; 82805; 83605; 83735; 83880; 84132; 84145; 84439; 84443; 84484; 85025; 85027; 85610; 85652; 85730; 86140; 86850; 86900; 86901; 86920; 87040; 87070; 87077; 87086; 87186; 87205; 87635; 93005; 93306; 94002; 94003; 94660; 96360; 99291